=== PATIENT | female | born 1960 | race Caucasian/White ===

== ENCOUNTER 2022-08-17 10:30 | Emergency (ER) | payer BC ==
--- OUTSIDE RECORDS SUMMARY | 2022-08-17 10:35 | XMS REPORT | Continuity of Care Document ---
:1960 Author Organization [facility] t Address [address] [place] [address] Care Team Providers Name Role Phone Jaya ECHEVERRIA, Darnell Dale Primary Care Physician [phone] Helio Giles MD Attending Clinician Delonte Soriano MD Attending Clinician MD DAMON PUENTES Attending Clinician DAMON Oropeza Attending Clinician Unavailable Melanie Vo Attending Clinician MD DAMON PUENTES Admitting Clinician DAMON Oropeza Admitting Clinician Unavailable Melanie Vo Admitting Clinician Payers Payer Name Policy Type Policy Number Effective Date Expiration Date S ource Problems Condition Condition Condition Status Onset Resolution Last Treating Co mments Source Name Details Category Date Date Treatment Clinician Date Chest pain Chest pain Disease Active M ethodi 04-02 st 00:00: Hospita 00 l Dyspepsia Dyspepsia Disease Active Met hodi 06-22 st 00:00: Hospita 00 l Diaphragma Diaphragma Disease Active M ethodi tic hernia tic hernia 06-22 st without without 00:00: Hospita obstructio obstructio 00 l n and n and without without gangrene gangrene Heartburn Heartburn Disease Active Met h[facility] 06-22 st 00:00: Hospita 00 l Diverticul Diverticul Disease Active M ethodi osis large osis large 9-10 st intestine intestine 00:00: Hosp soledad w/o w/o 00 l perforatio perforatio n or n or abscess abscess w/o w/o bleeding bleeding Internal Internal Disease Active [facility] hemorrhoid hemorrhoid 9-10 st s s 00:00: Hospita 00 l Subdural Subdural Disease Active [facility] hematoma hematoma 8-15 st 00:00: Hospita 00 l Chronic Chronic Disease Active Methodi systolic systolic 8-15 st congestive congestive 00:00: Ho spita heart heart 00 l failure failure Chronic Chronic Disease Recurre Method i bronchitis bronchitis nce 8-15 st 00:00: Hospita 00 l Essential Essential Disease Active Met hodi hypertensi hypertensi 8-15 st on on 00:00: Hospita 00 l HLD HLD Disease Recurre Methodi (hyperlipi (hyperlipi nce 8-15 st demia) demia) 00:00: Hospita 00 l SDH SDH Diagnosis Active 2019-06-03 Mem oria Active 05-18 22:14:00 l 05/18/2019 00:08: Michael taveras [address] Angio-mary beth Angio-mary beth Disease Active M ethodi a a 7[address] st 00:00: Hospita 00 l Colon Colon Disease Active Overview: Method i cancer cancer 03-[address] screening screening 00:00: g of this H ospita 00 note l might be different from the original. Added automatic ally from request for surgery [id number] Gastroesop Gastroesop Disease Active Overview : Methodi hageal hageal 03-[address] reflux reflux 00:00: g of this Hospita disease disease 00 note l might be different from the original. Added automatic ally from request for surgery [id number] Acute on Acute on Disease Active Metho di chronic chronic 4-06 st congestive congestive 00:00: Ho spita heart heart 00 l failure failure TRAUM TRAUM Diagnosis Active 2019-06-03 Mem oria SUBDR HEM SUBDR HEM 22:14:00 l W LOC OF W LOC OF Michael taveras UNSP UNSP DURATION, DURATION, Active [facility] ILLNESS, ILLNESS, Diagnosis Active 2019-05-18 Memoria UNSPECIFIE UNSPECIFIE 04:18:00 l D D Active Lucien [facility] Illness, Illness, Problem 2019-05-24 Memoria unspecifie unspecifie 21:58:01 l d d Lucien 05/24/2019 [facility] Allergies, Adverse Reactions, Alerts Allergy Allergy Status Severity Reaction(s) Onset Inactive Treating Comm ents Source Name Type Date Date Clinician Lisinopr Propensi Active Swelling Meth mary il ty to 814 st adverse 00:00: Hospita reaction 00 l s to drug Sulfa Propensi Active Anaphylaxis Met hodi (Sulfona ty to 01-16 st mide adverse 00:00: Hospita Antibiot reaction 00 l ics) s to drug Tramadol Propensi Active Hives Method i ty to 01-16 st adverse 00:00: Hospita reaction 00 l s to drug sulfa sulfa Active Allergy to Memori a drugs drugs sulfonamides l (disorder) Michael n shellfis shellfis Active Memori a h<sup>1< h<sup>1< l /sup> /sup> Lucien lisinopr lisinopr Active Memori a il il l Lucien Other Other Active Memoria Food Food l Allergy< Allergy< Michael n sup>2</s sup>2</s up> up> traMADol traMADol Active Memori a l Lucien Family History Family Member Diagnosis Comments Start Date Stop Date Source Natural father [facility] Natural mother Hypertension [facility] Natural mother Thyroid disease [facility] Social History Social Habit Start Date Stop Date Quantity Comments Source History of tobacco Smokes tobacco [facility] use daily Hospital Alcohol intake 2022-01-21 2022-01-21 Current drinker [facility] 00:00:00 00:00:00 of alcohol Hospital (finding) Cigarettes smoked 2019-06-22 2019-06-[address] current (pack per 00:00:00 00:00:00 Hospita l day) - Reported Cigarette 2019-06-22 2019-06-22 [facility] pack-years 00:00:00 00:00:00 Hospital Tobacco use and 2019-06-22 2019-06-22 Smokeless tobacco [facility] exposure 00:00:00 00:00:00 non-user Hospital Social History 2019-05-18 2019-05-18 [facility] Gretel marcano 23:25:12 23:25:12 Alcohol Comment 2019-05-18 2019-05-18 daily [facility] 00:00:00 00:00:00 Hospital Sex Assigned At [birth year] F [facility] 00:00:00 00:00:00 Hospital Smoking Status Start Date Stop Date Source Smokes tobacco daily 2019-06-22 00:00:00 [facility] Medications Ordered Filled Start Stop Current Ordering Indication Dosage Frequency Signature Comments Components Source Medication Medication Date Date Medication? Clinician (SIG) Name Name omeprazole 2021-10 Yes TAKE ONE Met hodi (PriLOSEC) 0-[address] 40 MG 00:00: MOUTH Hospita capsule 00 DAILY l UNABLE TO Yes b complex Met hodi FIND 2-25 st 13:20: Hospita 28 l sertraline Yes 100mg QD Take 100 Me thodi (ZOLOFT) 2-[address] 100 MG 13:20: mouth Hospita tablet 01 daily. l hydrALAZINE Yes 50mg Q.5D Take 50 mg Methodi (APRESOLINE 2-[address] ) 50 MG 13:20: (two) Hospita tablet 01 times a l day. [place]Ocod[place] 21205 1.5{tbl QD Take 1.5 Methodi -acetaminop 2-25 } tablets by st hen (NORCO) 13:20: mouth Hospi ta 10-325 mg 01 daily l per tablet .acute pain. Takes one in the morning and half at night butalbital- 2021-0 Yes 1{tbl} Q.5D Take 1 Me thodi acetaminoph 2-[address] en-caff 13:20: mouth 2 Hospita (FIORICET, 01 (two) l ESGIC) times a 50-325-40 day. mg per tablet acetaZOLAMI 0 Yes 500mg QD Take 500 M ethodi DE (DIAMOX) 2-[address] 500 mg 13:20: mouth Hospita capsule 01 daily. l topiramate 0 Yes 100mg Q.5D Take 100 Me thodi (TOPAMAX) 2-[address] 100 MG 13:20: mouth 2 Hospita tablet 01 (two) l times a day. cholecalcif Yes 2000U QD Take 2,000 Methodi susy, 2-[address] vitamin D3, 13:20: mouth Hospi ta (Vitamin 01 daily. l D3) 50 mcg (2,000 unit) capsule capsule ascorbic Yes 1000mg QD Take 1,000 M ethodi acid, 2-[address] vitamin C, 13:20: mouth Hospit a (vitamin C) 01 daily. l 1000 MG tablet carvediloL Yes 25mg Q.5D Take 25 mg M ethodi (COREG) 25 2-[address] MG tablet 13:20: (two) Hospita 01 times a l day with meals. atorvastati Yes 20mg QD Take 20 mg Methodi n (LIPITOR) 2-[address] 20 mg 13:20: daily. Hospita tablet Default OP l ins erenumab-ao Yes 140mg Q28D Inject 140 Methodi oe (Aimovig 2-[address] Autoinjecto 13:20: the skin Ho spita r) 140 01 every 28 l mg/mL days. syringe diazePAM Yes 5mg Q.5D Take 5 mg Meth mary (VALIUM) 5 2-[address] MG tablet 13:20: (two) Hospita 01 times a l day. omeprazole 2020-10- No TAKE ONE Me thodi (PriLOSEC) 0-26 10-[address] 40 MG 00:00: 00:00 MOUTH Hospita capsule 00 :00 DAILY l valsartan 2019-0 Yes Methodi (DIOVAN) 9-10 st 160 MG 00:00: Hospita tablet 00 l potassium 2020-0 Yes 10meq QD Take 10 Meth mary chloride 9-[address] (KLOR-CON) 00:00: mouth Hospit a 10 MEQ CR 00 daily. l tablet Acetaminoph Yes 1 tab, PO, Memoria en 300 MG / 8-10 Q6H, PRN l Codeine 19:19: Pain, X 5 Brenda nn Phosphate 00 day, # 20 30 MG Oral tab, 0 Tablet Refill(s) [Tylenol with Codeine #3] Levetiracet Yes 500 mg = 1 Memoria am 500 MG 8-10 tab, PO, l Oral Tablet 19:18: Q12H, # 8 H ermann 27 tab, 0 Refill(s), Pharmacy: [place] [id number] Potassium 2018- No Notes: Memori a Chloride 05-22 (Same as: l 13:28: K-Dur 20) [place] 00 "Do Not Crush" Give with food and full glass of water For patients unable to swallow tablet, dissolve in one half glass of water. Allow about 2 minutes for the tablets to disintegra te. Stir before giving to prepare slurry and administer . Please exclude Patient s with feeding tube less than 14 [place] (Dobhoff, J-tube etc) and pediatric and patients. Aspirin 81 No 81 mg = 1 Me moria MG Chewable 05-21 tab, PO, l Tablet 17:56: Daily, # Lucien 00 60 tab, 0 Refill(s), other multivitami No Notes: Shane jannie n with 05-21 (Same l minerals 14:00: as:Thera-M Her desouza 00 , Theragran- M) WASTE: F/P - Black; E - Municipal Trash Bin Give with food. Morphine No Notes: Memoria 05-20 (Same l 20:08: as:MORPhin Lucien 00 e Sulfate) Acetaminoph Yes 1 tab, PO, Memoria en 300 MG / 05-20 Q6H, PRN l Codeine 17:56: Pain, # 20 Herm souleymane Phosphate 00 tab, 0 30 MG Oral Refill(s) Tablet [Tylenol with Codeine #3] Levetiracet No 500 mg = 1 Memoria am 500 MG - tab, PO, l Oral Tablet 17:56: Q12H, # 8 H ermann 00 tab, 0 Refill(s), other Hydralazine No Notes: Shane jannie 05-20 (Same as: l 17:31: Apresoline Lucien 00 ) May interfere w/enteral feedings Take With Food. Oxycodone No Notes: Memori a Hydrochlori 05-20 (Same as: l de 5 MG 13:21: Roxicodone Herm souleymane Oral Tablet 00 ) heparin No Notes: Memoria sodium, 05-19 porcine l porcine 21:00: heparin [place] 2500 UNT/ML Injectable Solution Morphine No Notes: Memoria - (Same l 14:05: as:MORPhin e Sulfate) Furosemide No Notes: Memor ia 40 MG Oral 05-19 (Same as: l Tablet 14:00: Lasix) May cause GI upset. Give with food or milk. Omeprazole No 20 mg, Memor ia 05-19 Route: PO, l 14:00: Drug form: Lucien 00 DRC, Daily, Dosing Weight 86, kg, Start date: 05/19/19 9:00:00 CDT, Duration: 30 day, Stop date: 06/17/19 9:00:00 CDT Sertraline No Notes: Memor ia 05-19 (Same as: l 14:00: Zoloft) sennosides, No Notes: Shane jannie SKILLED NURSING 8.6 MG 05-19 (Same as: l Oral Tablet 14:00: Senokot) He rm Docusate No Notes: Memoria 05-19 (Same as: l 14:00: Colace) [place] 00 (Do Not Crush) Simvastatin No Notes: Shane jannie 05-19 (Same as: l 02:00: Zocor) carvedilol No Notes: Memor ia 05-18 Give with l 22:00: food. [place] 00 (Same As: Coreg) carvedilol No 12.5 mg = Me moria 12.5 mg 8 1 tab, PO, l oral tablet 21:59: Q12H Michael n 00 One-A-Day Yes 1 tab, PO, Me moria Women 50 8-06 Daily, # l Plus oral 21:59: 90 tab, 0 Her desouza tablet 00 Refill(s) Hydralazine Yes 25 mg = 1 M emoria Hydrochlori 8-06 tab, PO, l de 25 MG 21:59: Q12H [place] Oral Tablet 00 sertraline Yes 150 mg = Mem oria 100 mg oral 8 1.5 tab, l tablet 21:58: PO, Daily Michael n 00 Protonix No Notes: Memoria 8-06 Tablet l 21:30: should not Lucien 00 be chewed or crushed. (Same as: Protonix) Potassium No Notes: Memori a Chloride 05-18 Infuse at l 18:51: a rate of Lucien 00 10 mEq/hr. (Same as: KCL) Calcium No Notes: Memoria Carbonate 05-18 (Same As: l 500 MG 18:51: Tums) [place] Chewable 00 Calcium Tablet Carbonate 500 mg = 200 mg elemental calcium Dose = mg calcium carbonate ( mg elemental calcium) Calcium No Notes: Memoria Gluconate 05-18 WASTE: F/P l 18:51: - Sink; E [place] - Municipal Trash Bin potassium No Notes: Memori a phosphate-s 05-18 (Same as: l odium 18:51: Phos-NaK) Lucien phosphate 00 Each 1.5 250 mg-280 gm pkt has mg-160 mg 250mg oral powder phosphorou for s. Mix reconstitut w/2.5oz ion water and stir. potassium No Notes: Memori a phosphate 05-18 (Same as: l 18:51: K Lucien 00 Phosphate. ) Do not infuse phosphorou s concurrent ly in the same line as TPN or IVF that contains calcium. For double lumen central lines, phosphorou s may be infused in a separate lumen from TPN. 1 mMol phoshate has 1.47 mEq potassium Infuse over 4 hours Magnesium No Notes: Memori a Oxide 05-18 (Same as: l 18:51: Mag-Ox [place] 00 400) Magnesium oxide 780pf=457i g elemental magnesium Dose=____m g magnesium oxide (___mg elemental magnesium) Magnesium No Notes: Memori a Sulfate 05-18 WASTE: F/P l 18:51: - Sink; E [place] - Municipal Trash Bin sodium No Notes: Memoria phosphate 05-18 Infuse l 18:51: over 4 Lucien 00 hour. Do not infuse phosphorou s concurrent ly in the same line as TPN or IVF that contains calcium. For double lumen central lines, phosphorou s may be infused in a separate lumen from TPN. Levetiracet No Notes: Shane jannie am 05-18 (Same l 14:00: as:Keppra) Lucien Zofran No Notes: Memoria 05-18 (Same as: l 11:15: Zofran) [place] 00 MEDICATION WASTE Product Size: 4 mg Product Wasted: ___ mg Acetaminoph No Notes: Do M emoria en 325 MG / 05-18 not exceed l Hydrocodone 11:14: 4gm/day of Lucien Bitartrate 00 acetaminop 10 MG Oral hen. (Same Tablet as: Vidalia 325/10) Acetaminoph No Notes: Do M emoria en 05-18 not exceed l 11:14: 4 gm/day. [place] (Same as: Tylenol) simvastatin Yes 20 mg = 1 M emoria 20 mg oral 05-18 tab, PO, l tablet 11:13: Bedtime, # Brenda nn 00 90 tab, 1 Refill(s) sertraline No 100 mg = 1 M emoria 100 mg oral 05-18 tab, PO, l tablet 11:13: Daily, # [place] 00 30 tab, 0 Refill(s) omeprazole Yes 20 mg = 1 Me moria 20 mg oral 05-18 cap, PO, l delayed 11:13: Daily, # Michael n release 00 30 cap, 0 capsule Refill(s) Hydralazine No 10 mg = 1 M emoria Hydrochlori -06 tab, PO, l de 10 MG 11:13: ABXQ8H, 0 Herm souleymane Oral Tablet 00 Refill(s) Furosemide Yes 40 mg = 1 Me moria 40 MG Oral 8-06 tab, PO, l Tablet 11:13: Daily, # [place] 00 30 tab, 0 Refill(s) carvedilol No 6.25 mg = Me moria 6.25 mg 05-18 1 tab, PO, l oral tablet 11:13: BID, # 180 Lucien 00 tab, 0 Refill(s) Aspirin 81 No 81 mg = 1 Me moria MG Chewable 05-18 tab, PO, l Tablet 11:13: Daily, Lucien 00 tab, 0 Refill(s) Sodium 2019-0 No 250 mL, Memoria Chloride 05-18 Rate: To l 0.9% 10:55: prime line [place] (titrate) 00 and flush 250 mL remaining blood products., Dosing Weight 86.2, kg, Route: IV, Total Volume: 250, Start Date: 05/18/19 5:55:00 CDT, Duration: 1 day, Stop date: 05/19/19 5:54:00 CDT, Replace Every: 24 hr, 0 Sodium 2019-0 No 1,000 mL, Memori a Chloride 05-18 Rate: 50 l 0.9% IV 09:46: ml/hr, [place] 1,000 mL 00 Infuse over: 20 hr, Route: IV, Total Volume: 1,000, Start date: 05/18/19 4:46:00 CDT, Duration: 30 day, Stop date: 06/17/19 4:45:00 CDT, 0 Immunizations Ordered Immunization Filled Immunization Date Status Commen ts Source Name Name Tdap 2022-01-21 Completed [facility] 00:00:00 Hospital Vital Signs Vital Name Observation Time Observation Value Comments Source Systolic blood 2022-01-21 19:39:00 138 mm[Hg] [facility] pressure Diastolic blood 2022-01-21 19:39:00 79 mm[Hg] [facility] pressure Heart rate 2022-01-21 19:39:00 54 /min [facility] Body temperature 2022-01-21 19:39:00 36.44 Johanny [facility] Respiratory rate 2022-01-21 19:39:00 17 /min [facility] Oxygen saturation in 2022-01-21 19:39:00 99 /min [facility] Arterial blood by Pulse oximetry Body height 2022-01-21 18:06:00 162.6 cm [facility] Body weight 2022-01-21 18:06:00 54.432 kg [facility] BMI 2022-01-21 18:06:00 20.60 kg/m2 [facility] Temperature Oral (F) 2019-05-22 16:35:00 98.7 F [facility] Lucien Respitory Rate 2019-05-22 16:35:00 Memori al Lucien Heart Rate 2019-05-22 16:35:00 [facility] Lucien Systolic (mm Hg) 2019-05-22 16:35:00 Shane rial [place] Diastolic (mm Hg) 2019-05-22 16:35:00 Mem orial Lucien Heart Rate 2019-05-22 13:00:00 [facility] [place] Systolic (mm Hg) 2019-05-22 13:00:00 Shane rial Lucien Diastolic (mm Hg) 2019-05-22 13:00:00 Mem orial [place] Respitory Rate 2019-05-22 13:00:00 Memori al Lucien Temperature Oral (F) 2019-05-22 13:00:00 98.5 F [facility] Lucien Respitory Rate 2019-05-22 09:00:00 Memori al Lucien Systolic (mm Hg) 2019-05-22 09:00:00 Shane rial [place] Diastolic (mm Hg) 2019-05-22 09:00:00 Mem orial Lucien Heart Rate 2019-05-22 09:00:00 [facility] [place] Temperature Oral (F) 2019-05-22 09:00:00 98.0 F [facility] [place] Weight 2019-05-18 15:56:00 [facility] [place] BMI Calculated 2019-05-18 15:56:00 Memori al Lucien Height 2019-05-18 15:56:00 162.56 cm [facility] [place] BMI Calculated 2019-05-18 12:38:00 Memori al Lucien Weight 2019-05-18 12:38:00 [facility] Lucien Height 2019-05-18 12:38:00 162.56 cm [facility] Lucien BMI Calculated 2019-05-18 12:36:00 Memori al Lucien Height 2019-05-18 12:36:00 162.56 cm [facility] Lucien Weight 2019-05-18 12:36:00 [facility] Lucien Procedures Procedure Date / Time Performing Clinician Source Performed XR KNEE 3 VW LEFT 2022-01-21 19:25:43 [facility] XR CHEST 1 VW PORTABLE 2022-01-21 19:25:[address] [facility] [address] CERVICAL SPINE WO 2022-01-21 19:13:32 [facility] CONTRAST CT HEAD WO CONTRAST 2022-01-21 19:13:17 [facility] QUALITATIVE, SERUM 2022-01-21 18:38:00 [facility] SCREEN HC COMPLETE BLD COUNT 2022-01-21 18:38:00 PeytonAbel taveras [facility] W/AUTO DIFF COMPREHENSIVE METABOLIC 2022-01-21 18:38:00 [facility] PANEL TROPONIN T 2022-01-21 18:38:00 [facility] TIME WITH INR 2022-01-21 18:38:00 [facility] PART[facility] THROMBOPLASTIN 2022-01-21 18:38:00 Hitchcock [facility] TIME (PTT) ALCOHOL LEVEL, BLOOD 2022-01-21 18:38:00 [facility] LACTIC ACID LEVEL, SEPSIS 2022-01-21 18:38:[address] [facility] - NOW AND REPEAT 2X EVERY 3 HOURS ESTIMATED GFR 2022-01-21 18:38:00 Abel [facility]ital ECG ED PRELIMINARY 2022-01-21 18:37:22 HitchcockDelonte [facility] INTERPRETATION ECG 12-LEAD 2022-01-21 18:10:18 Abel Todd spital Plan of Care Planned Activity Planned Date Details Comments Source Future Scheduled 2022-08-14 HEPATITIS B VACCINES Met [facility] Test 19:12:46 (1 of 3 - 3-dose series) [code = HEPATITIS B VACCINES (1 of 3 - 3-dose series)] Future Scheduled 2022-08-14 Pneumococcal Vaccine: [facility] Test 19:12:46 Pediatrics (0 to 5 Years) and At-Risk Patients (6 to 64 Years) (1 - PCV) [code = Pneumococcal Vaccine: Pediatrics (0 to 5 Years) and At-Risk Patients (6 to 64 Years) (1 - PCV)] Future Scheduled 2022-08-14 Hepatitis C screening [facility] Test 19:12:46 (procedure) [code = 737684676] Future Scheduled 2022-08-14 Screening for [facility] Test 19:12:46 malignant neoplasm of cervix (procedure) [code = 455650104] Future Scheduled 2022-08-14 BREAST CANCER [facility] Test 19:12:46 SCREENING [code = BREAST CANCER SCREENING] Future Scheduled 2022-08-[address] [facility] Test 19:12:46 [code = COLONOSCOPY SCREENING] Future Scheduled 2022-08-14 Screening for [facility] Test 19:12:46 malignant neoplasm of lung (procedure) [code = 695469776] Future Scheduled 2022-08-14 SHINGLES VACCINES (1 Met [facility] Test 19:12:46 of 2) [code = SHINGLES VACCINES (1 of 2)] Future Scheduled 2022-08-14 COVID-19 VACCINE (4 - [facility] Test 19:12:46 Booster for Moderna series) [code = COVID-19 VACCINE (4 - Booster for Moderna series)] Future Scheduled 2022-08-14 INFLUENZA VACCINE Method [facility] Test 19:12:46 [code = INFLUENZA VACCINE] Encounters Start End Encounter Admission Attending Care Care Encounter Source Date/Time Date/Time Type Type Clinicians Facility Department ID 2019-05-18 Inpatient [facility] [id number] [facility] W 04:17:00 2022-08-06 2022-08-06 Refill Helio Giles 1.2.840.1 [id number] Methodi 00:00:00 00:00:[address] 3.430.2.7 Hospit a .3.104685 l .8 2022-01-21 2022-01-21 Emergency Soriano, 1.2.840.1 [id number] Methodi 13:08:00 15:26:[address] 3.430.2.7 Hospit a .3.324964 l .8 2022-01-21 2022-01-21 Travel 1.2.840.1 [id number] [id number] Methodi 00:00:00 00:00:[address] 3.430.2.7 0.2.7.3.698 Ho spita .3.487131 084.8 l .8 2022-01-21 2022-01-21 Emergency FANNY, [facility] [id number] [place] 00:00:00 00:00:00 DELONTE [address] 2021-12-07 2021-12-07 Office Tisha Helio 1.2.840.1 [id number] Methodi 13:00:00 13:48:55 Visit [place] [address].1.[address] 3.430.2.7 Hospit a .3.521855 l .8 2021-12-07 2021-12-07 Travel 1.2.840.1 1.2.512.574 [id number] Methodi 00:00:00 00:00:[address] 3.430.2.7 0.2.7.3.698 Ho spita .3.088369 084.8 l .8 2021-12-07 2021-12-07 Outpatient PENDING SALE TO [facility] [id number] [place] 00:00:00 00:00:[address] 2021-07-17 2021-07-17 Outpatient PRIV PRIV [id number] 0-2 [facility] 00:00:00 00:00:00 [id number] Medica l 2021-05-17 2021-05-17 Outpatient [facility] [id number] [place] 00:00:00 00:00:[address] 2021-04-02 2021-04-02 Outpatient OBSHAWN [facility] [id number] [place] 00:00:00 00:00:00 DAMON [address] 2020-07-07 2020-07-07 Outpatient [facility] [id number] [place] 00:00:00 00:00:[address] 2019-05-18 2019-05-22 Inpatient [facility] [id number] Memoria 09:17:00 21:00:00 eric Mcgraw 18 l [facility] 2019-05-18 2019-05-22 Outpatient Vo, [facility] [id number] 04:17:00 16:00:00 Melanie Blanchard 18 Vero Results Test Description Test Time Test Comments Results Result Comments Source ECG 12 lead 2022-02-07 19:09:06 Test Item Value Reference Range Interpretation Comme nts Ventricular rate (test code = 253) Atrial rate (test code = 255) [place] interval (test code = 266) QRSD interval (test code = 260) QT interval (test code = 264) QTC interval (test code = 265) P axis 1 (test code = 267) QRS axis 1 (test code = 268) T wave axis (test code = 270) EKG impression (test code = 273) Sinus rhythm with 1st degree AV bl ock-Left bundle branch block-In automated comparison with ECG of 02-APR-2021 16:58,-Questionable change in QRS axis-T wave inversion no longer evident in Inferior leads- [facility] ED Preliminary Interpretation - Not an [id number] 18:37:22 Test Item Value Reference Range Interpretation Comments BOWEN (test code = BOWEN) Delonte Soriano MD 01/21/2022 2:31 [facility] Preliminary Interpretation - Not an OrderPerformed by: Delonet Soriano MDAuthorized by: Delonte Soriano MD ECG reviewed by ED Physician in the absence of a keyboard teacher: yes Interpretation: Interpretation: abnormal Rate: ECG rate: 62 ECG rate assessment: normal Rhythm: Rhythm: sinus rhythm and A-V block QRS: QRS axis: Normal QRS intervals: NormalConduction: Conduction: abnormal Abnormal conduction: complete LBBB and 1st degree Lab Interpretation Abnormal (test code = 17375-5) [facility] [Presence] in Respiratory specimen by ALBERTO with probe [id number] 12:11:20 Test Item Value Reference Range Interpretation Comments SARS-CoV-2 (COVID-19) RNA Not detected Not-Detected [Presence] in Respiratory specimen by ALBERTO with probe detection (test code = 08601-8) Whether patient is employed in a healthcare setting (test code = 33969-6) Whether the patient has symptoms related to condition of interest (test code = 81303-8) Patient was hospitalized because of this condition (test code = 92366-6) Whether the patient was admitted to intensive care unit (ICU) for condition of interest (test code = 68526-9) Whether patient resides in a congregate care setting (test code = 83000-8) [facility]:16[facility]00 Test Item Value Reference Range Interpretation Comments Sodium Lvl (test code = Sodium Lvl) 137 135-145 [facility]EmkrfstBWHTNORIPRTT6213-76-07 09:16:00 Test Item Value Reference Range Interpretation Comments Potassium Lvl (test code = Potassium 3.4 3.5-5.1 Lvl) [facility]borEtsqynzUEFBTNSDKIVM5527-82-99 09:16:00 Test Item Value Reference Range Interpretation Comments Chloride Lvl (test code = Chloride Lvl) 100 95-109 [facility]borMauqyrpLABLECUHLQWN7074-55-37 09:16:00 Test Item Value Reference Range Interpretation Comments Creatinine Lvl (test code = Creatinine 1.20 0.50-1.40 Lvl) [facility]borRqrnlpyKDMLOCZZWTDK6645-17-93 09:16:00 Test Item Value Reference Range Interpretation Comments BUN (test code = BUN) 13 7-22 [facility]borIfuxrfgDNILSMECLYZM2581-03-67 09:16:00 Test Item Value Reference Range Interpretation Comments eGFR (test code = eGFR) 50 [facility]borIritvbjKNEAFYYCFTOG3370-77-33 09:16:00 Test Item Value Reference Range Interpretation Comments Calcium Lvl (test code = Calcium Lvl) 9.0 8.5-10.5 [facility]borPzvsurvGSBVKNWTLWCA9574-47-15 09:16:00 Test Item Value Reference Range Interpretation Comments CO2 (test code = CO2) 27 24-32 [facility]borVowjwyxLOQJFXMGOOTW1458-17-18 09:16:00 Test Item Value Reference Range Interpretation Comments Glucose Lvl (test code = Glucose Lvl) 93 70-99 [facility]borWlrvhhrTIRBKORFVGNP7712-33-30 09:16:00 Test Item Value Reference Range Interpretation Comments AGAP (test code = AGAP) 13.4 10.0-20.0 [facility]NeyjmaoFNUFSNMZEZ5127-90-21 09:16:00 Test Item Value Reference Range Interpretation Comments MCH (test code = MCH) 33.7 pg 27.0-31.0 [facility] HospitalMmcogyuXMIFKORLAS5776-55-14 09:16:00 Test Item Value Reference Range Interpretation Comments MCHC (test code = MCHC) 34.0 32.0-36.0 [facility] HospitalUsuyvclYQEGOIWSFR6288-08-24 09:16:00 Test Item Value Reference Range Interpretation Comments Platelet (test code = Platelet) 206 133-450 [facility] HospitalJqpjketOGRNGKJWMA0850-04-90 09:16:00 Test Item Value Reference Range Interpretation Comments MPV (test code = MPV) 9.9 7.4-10.4 [facility] HospitalGltxlpzWMAAVXMWTP3639-75-58 09:16:00 Test Item Value Reference Range Interpretation Comments RDW (test code = RDW) 18.1 11.5-14.5 [facility] HospitalQtzahviDXLPXWNMLY6013-93-71 09:16:00 Test Item Value Reference Range Interpretation Comments WBC (test code = WBC) 5.9 3.7-10.4 [facility] HospitalMwhaylaDRABAJFDQC0567-16-04 09:16:00 Test Item Value Reference Range Interpretation Comments RBC (test code = RBC) 2.94 4.20-5.40 [facility] HospitalXosbncmGJLGJGVCUG9264-76-53 09:16:00 Test Item Value Reference Range Interpretation Comments Hgb (test code = Hgb) 9.9 12.0-16.0 [facility] HospitalNwcjsuqCOIPWHIGIV1686-48-47 09:16:00 Test Item Value Reference Range Interpretation Comments Hct (test code = Hct) 29.1 36.0-48.0 [facility] HospitalVeapuelPHOPJIOVZY5405-43-91 09:16:00 Test Item Value Reference Range Interpretation Comments MCV (test code = MCV) 99.1 80.0-98.0 [facility] HospitalDhtyvqnHVJBATFVTC7248-79-42 23:02:00 Test Item Value Reference Range Interpretation Comments Hgb (test code = Hgb) 9.7 12.0-16.0 [facility] HospitalEcxrmooAXUCUHBXDQ0504-82-25 23:02:00 Test Item Value Reference Range Interpretation Comments Hct (test code = Hct) 28.4 36.0-48.0 [facility] GZKGK6148-56-99 09:46:00 Test Item Value Reference Range Interpretation Comments CO2 (test code = CO2) 24 24-32 [facility] [id number] 09:46:00 Test Item Value Reference Range Interpretation Comments Calcium Lvl (test code = Calcium Lvl) 8.8 8.5-10.5 [facility]2019-08-08 09:46:00 Test Item Value Reference Range Interpretation Comments AGAP (test code = AGAP) 13.2 10.0-20.0 [facility]2019-08-08 09:46:00 Test Item Value Reference Range Interpretation Comments Phosphorus (test code = Phosphorus) 3.1 2.5-4.5 [facility]2019-08-08 09:46:00 Test Item Value Reference Range Interpretation Comments Magnesium Lvl (test code = Magnesium 2.3 1.8-2.4 Lvl) [facility] HospitalRphadckPTWUMKSVTU4572-55-99 09:46:00 Test Item Value Reference Range Interpretation Comments Monocytes # (test code 0.4 See_Comment [Aut omated message] The = Monocytes #) system which generated this result tra nsmitted reference range : <=0.8. The reference r pooja was not used to int erpret this result as normal/abnormal . [facility] HospitalEayqnhrXYLNSXFHXE8147-92-20 09:46:00 Test Item Value Reference Range Interpretation Comments Eosinophils (test code = 1.4 See_Comment [A utomated message] The Eosinophils) system which ge nerated this result tra nsmitted reference range : <=4.0. The reference r pooja was not used to int erpret this result as normal/abnormal . [facility] HospitalXqonhzbKEUVJRLBEI8222-11-67 09:46:00 Test Item Value Reference Range Interpretation Comments Basophils # (test code 0.1 See_Comment [Aut omated message] The = Basophils #) system which generated this result tra nsmitted reference range : <=0.2. The reference r pooja was not used to int erpret this result as normal/abnormal . [facility] HospitalTzmeiyxSJRYFXPWOZ1312-87-83 09:46:00 Test Item Value Reference Range Interpretation Comments Eosinophils # (test code 0.1 See_Comment [A utomated message] The = Eosinophils #) system whic h generated this result tra nsmitted reference range : <=0.5. The reference r pooja was not used to int erpret this result as normal/abnormal . [facility] HospitalPtuomxlKDPGQSONLL9315-30-28 09:46:00 Test Item Value Reference Range Interpretation Comments Basophils (test code = 0.9 See_Comment [Aut omated message] The Basophils) system which ge nerated this result tra nsmitted reference range : <=1.0. The reference r pooja was not used to int erpret this result as normal/abnormal . [facility] HospitalWtpswkrFCWYPMTYZQ9442-56-78 09:46:00 Test Item Value Reference Range Interpretation Comments Neutrophils # (test code = Neutrophils 4.7 1.5-8.1 #) [facility] HospitalUsftldbIQJPNVBMSM5973-03-79 09:46:00 Test Item Value Reference Range Interpretation Comments Lymphocytes # (test code = Lymphocytes 1.3 1.0-5.5 #) [facility] HospitalCyqmrrdWVKQJVCTCU5844-79-21 09:46:00 Test Item Value Reference Range Interpretation Comments Segs (test code = Segs) 71.2 45.0-75.0 [facility] HospitalDnikxpjOVNPNJHELZ4065-97-45 09:46:00 Test Item Value Reference Range Interpretation Comments Monocytes (test code = Monocytes) 6.5 2.0-12.0 [facility] HospitalAcbnrceIAHCATUFUW7107-92-22 09:46:00 Test Item Value Reference Range Interpretation Comments Lymphocytes (test code = Lymphocytes) 20.0 20.0-40.0 [facility] HospitalJztqxszADPHUPJOOA4747-63-17 09:46:00 Test Item Value Reference Range Interpretation Comments MCH (test code = MCH) 33.6 pg 27.0-31.0 [facility] HospitalEmhsusbERXIFIBUXW9170-21-91 09:46:00 Test Item Value Reference Range Interpretation Comments MCV (test code = MCV) 100.5 80.0-98.0 [facility] HospitalAvdkrkeIKRGKTQRVL1110-43-97 09:46:00 Test Item Value Reference Range Interpretation Comments Hgb (test code = Hgb) 9.0 12.0-16.0 [facility] HospitalFdiygxgNRDLZGAZQR2001-09-63 09:46:00 Test Item Value Reference Range Interpretation Comments Hct (test code = Hct) 26.9 36.0-48.0 [facility] HospitalNzbtldcDMUVLDINJL2666-36-01 09:46:00 Test Item Value Reference Range Interpretation Comments MCHC (test code = MCHC) 33.5 32.0-36.0 [facility] HospitalDwdboanNTWUSIGVCT0327-82-55 09:46:00 Test Item Value Reference Range Interpretation Comments RBC (test code = RBC) 2.68 4.20-5.40 [facility] HospitalSltittkVGMJWWRYNI6544-29-16 09:46:00 Test Item Value Reference Range Interpretation Comments WBC (test code = WBC) 6.6 3.7-10.4 [facility] HospitalVofguyvHHJTVZKIFQ1294-02-95 09:46:00 Test Item Value Reference Range Interpretation Comments Platelet (test code = Platelet) 182 133-450 [facility] HospitalPxbmcsfALUQOMDRZG5281-84-70 09:46:00 Test Item Value Reference Range Interpretation Comments MPV (test code = MPV) 10.3 7.4-10.4 [facility] HospitalXwmpxsmTICFDGHZQN6463-94-89 09:46:00 Test Item Value Reference Range Interpretation Comments RDW (test code = RDW) 18.5 11.5-14.5 [facility]2019-08-08 09:46:00 Test Item Value Reference Range Interpretation Comments eGFR (test code = eGFR) 50 [facility]2019-08-08 09:46:00 Test Item Value Reference Range Interpretation Comments BUN (test code = BUN) 13 7-22 [facility]2019-08-08 09:46:00 Test Item Value Reference Range Interpretation Comments Creatinine Lvl (test code = Creatinine 1.20 0.50-1.40 Lvl) [facility] KBWBB5847-12-18 09:46:00 Test Item Value Reference Range Interpretation Comments Sodium Lvl (test code = Sodium Lvl) 143 135-145 [facility]2019-08-08 09:46:00 Test Item Value Reference Range Interpretation Comments Potassium Lvl (test code = Potassium 4.2 3.5-5.1 Lvl) [facility] HMHUN7775-18-53 09:46:00 Test Item Value Reference Range Interpretation Comments Glucose Lvl (test code = Glucose Lvl) 91 70-99 [facility] GJTLC6882-56-64 09:46:00 Test Item Value Reference Range Interpretation Comments Chloride Lvl (test code = Chloride Lvl) 110 95-109 [facility] GVVIWOD7440-41-29 09:36:00 Test Item Value Reference Range Interpretation Comments Troponin-I (test code no gt See_Comment [Auto mated message] The = Troponin-I) system which g enerated this result transmit ruslan reference range : <=0.40. The reference r pooja was not used to interpr et this result as simeon l/abnormal. [facility] [id number] 09:36:00 Test Item Value Reference Range Interpretation Comments Phosphorus (test code = Phosphorus) 3.0 2.5-4.5 [facility]2019-08-07 09:36:00 Test Item Value Reference Range Interpretation Comments Magnesium Lvl (test code = Magnesium 2.5 1.8-2.4 Lvl) [facility]ZqupmsoQPLUWXHTURIT1989-27-92 09:36:00 Test Item Value Reference Range Interpretation Comments AGAP (test code = AGAP) 11.8 10.0-20.0 [facility]borYpfnkowHMEZGOCFSVED9108-20-90 09:36:00 Test Item Value Reference Range Interpretation Comments eGFR (test code = eGFR) 50 [facility]borZfnrsuvJETGOXAIHEOF2739-27-25 09:36:00 Test Item Value Reference Range Interpretation Comments Creatinine Lvl (test code = Creatinine 1.20 0.50-1.40 Lvl) [facility]borQhomgmkSTZTBFEWSTTQ3913-55-22 09:36:00 Test Item Value Reference Range Interpretation Comments BUN (test code = BUN) 16 7-22 [facility]borQpajqhwPVZUCMYUVYCR8566-97-63 09:36:00 Test Item Value Reference Range Interpretation Comments Glucose Lvl (test code = Glucose Lvl) 101 70-99 [facility]borWmnpzarJIKXVALXAMGK7123-75-31 09:36:00 Test Item Value Reference Range Interpretation Comments Sodium Lvl (test code = Sodium Lvl) 142 135-145 [facility]borNmbzvzrPEJPMFEXFHGH4231-36-83 09:36:00 Test Item Value Reference Range Interpretation Comments Calcium Lvl (test code = Calcium Lvl) 8.2 8.5-10.5 [facility]borKfcxzkrWCZHIQTGYRDV4328-16-65 09:36:00 Test Item Value Reference Range Interpretation Comments CO2 (test code = CO2) 25 24-32 [facility]borTokkpcoBROCEKLVOVRZ2070-36-78 09:36:00 Test Item Value Reference Range Interpretation Comments Chloride Lvl (test code = Chloride Lvl) 109 95-109 [facility] ArborUrqaftlRMPQUIRAVCBB7483-12-35 09:36:00 Test Item Value Reference Range Interpretation Comments Potassium Lvl (test code = Potassium 3.8 3.5-5.1 Lvl) [facility]winVtmljswOSEZKWULLV0797-68-78 09:36:00 Test Item Value Reference Range Interpretation Comments Lymphocytes # (test code = Lymphocytes 1.1 1.0-5.5 #) [facility] HospitalSucnbwmJDLCCWQLCW8768-91-98 09:36:00 Test Item Value Reference Range Interpretation Comments Monocytes # (test code 0.5 See_Comment [Aut omated message] The = Monocytes #) system which generated this result tra nsmitted reference range : <=0.8. The reference r pooja was not used to int erpret this result as normal/abnormal . [facility] HospitalNegdcyqZPGEKKCIQO7092-99-34 09:36:00 Test Item Value Reference Range Interpretation Comments Neutrophils # (test code = Neutrophils 4.5 1.5-8.1 #) [facility] HospitalYwyahflAVYHNTISKV4190-66-67 09:36:00 Test Item Value Reference Range Interpretation Comments Segs (test code = Segs) 72.5 45.0-75.0 [facility] HospitalQqlvwpyUMTGOAWKQZ6105-74-07 09:36:00 Test Item Value Reference Range Interpretation Comments Lymphocytes (test code = Lymphocytes) 17.9 20.0-40.0 [facility] HospitalLpgnphkFZJGJBCKOF5367-12-94 09:36:00 Test Item Value Reference Range Interpretation Comments Basophils (test code = 0.4 See_Comment [Aut omated message] The Basophils) system which ge nerated this result tra nsmitted reference range : <=1.0. The reference r pooja was not used to int erpret this result as normal/abnormal . [facility] HospitalNejowulDFELVCISNT0912-37-37 09:36:00 Test Item Value Reference Range Interpretation Comments Monocytes (test code = Monocytes) 8.6 2.0-12.0 [facility] HospitalHgmzxcfWQXEGEAHPT9813-75-22 09:36:00 Test Item Value Reference Range Interpretation Comments Eosinophils (test code = 0.6 See_Comment [A utomated message] The Eosinophils) system which ge nerated this result tra nsmitted reference range : <=4.0. The reference r pooja was not used to int erpret this result as normal/abnormal . [facility] HospitalOpwnnleUEZRFBAGIO2070-07-73 09:36:00 Test Item Value Reference Range Interpretation Comments INR (test code = INR) 0.97 1 0.85-1.17 [facility] HospitalVzvfcjaDQSJBEMORG8436-14-30 09:36:00 Test Item Value Reference Range Interpretation Comments PTT (test code = PTT) 32.4 s 22.9-35.8 [facility] HospitalVedllytQZDQNNYZCU9790-39-55 09:36:00 Test Item Value Reference Range Interpretation Comments PT (test code = PT) 12.7 s 12.0-14.7 [facility] HospitalFfwlnjoLSEKHNKOKY2854-51-32 09:36:00 Test Item Value Reference Range Interpretation Comments MPV (test code = MPV) 9.6 7.4-10.4 [facility] HospitalNxdflcjCSIZTIJLYX9875-16-71 09:36:00 Test Item Value Reference Range Interpretation Comments Platelet (test code = Platelet) 170 133-450 [facility] HospitalOguadhwRQMBTJVLJJ9172-05-63 09:36:00 Test Item Value Reference Range Interpretation Comments MCH (test code = MCH) 33.7 pg 27.0-31.0 [facility] HospitalMnhcxbcGXSJOIYCEF3258-82-91 09:36:00 Test Item Value Reference Range Interpretation Comments MCV (test code = MCV) 99.1 80.0-98.0 [facility] HospitalTxsfaygBSUWVYKWYN6292-67-59 09:36:00 Test Item Value Reference Range Interpretation Comments RDW (test code = RDW) 19.1 11.5-14.5 [facility] HospitalRkxfdulBUTKGQIYZZ1727-18-93 09:36:00 Test Item Value Reference Range Interpretation Comments MCHC (test code = MCHC) 34.0 32.0-36.0 [facility] HospitalBnmmancETQDJTBBLO3642-51-44 09:36:00 Test Item Value Reference Range Interpretation Comments RBC (test code = RBC) 2.62 4.20-5.40 [facility] HospitalClldmgoPHQWKEBBIX0845-23-34 09:36:00 Test Item Value Reference Range Interpretation Comments WBC (test code = WBC) 6.2 3.7-10.4 [facility]roeAturdinKALCOW9363-10-16 09:36:00 Test Item Value Reference Range Interpretation Comments CHD Risk (test code = CHD Risk) 2.88 1 3.90-5.80 [facility]roeNviqhuoWBDZHE6948-26-11 09:36:00 Test Item Value Reference Range Interpretation Comments HDL (test code = HDL) 68 [facility]roeRqhzvbkYGSAPU8451-53-76 09:36:00 Test Item Value Reference Range Interpretation Comments Trig (test code = Trig) 166 [facility] ConroeGugtrgzYHZIZG7348-72-01 09:36:00 Test Item Value Reference Range Interpretation Comments VLDL (test code = VLDL) 33 1 [facility] QrqtbafZHGGNM1021-90-51 09:36:00 Test Item Value Reference Range Interpretation Comments LDL (Calculated) (test code = LDL 95 (Calculated)) [facility] LobftmtVVZYXW3332-39-90 09:36:00 Test Item Value Reference Range Interpretation Comments Chol (test code = Chol) 196 [facility]enannPARATHYROID DQTHZBC8561-80-23 09:36:00 Test Item Value Reference Range Interpretation Comments Ca Ion WB (test code = Ca Ion WB) 1.13 1.05-1.25 [facility]annPARATHYROID SFDKFOA0209-60-36 09:36:00 Test Item Value Reference Range Interpretation Comments Ca Norm WB (test code = Ca Norm WB) 1.11 1.05-1.25 [facility]enannCARDIAC PCUJTLP4442-02-84 16:32:00 Test Item Value Reference Range Interpretation Comments CK MB (test code = CK MB) 2.1 0.5-3.6 [facility]enannCARIguanaBee in ChinaAC TNEZBDD3512-80-30 16:32:00 Test Item Value Reference Range Interpretation Comments Total CK (test code = Total CK) 98 12-191 [facility] TaylorCARIguanaBee in ChinaAC VOMIIDR6733-44-65 16:32:00 Test Item Value Reference Range Interpretation Comments Troponin-I (test code no gt See_Comment [Auto mated message] The = Troponin-I) system which g enerated this result transmit ruslan reference range : <=0.40. The reference r pooja was not used to interpr et this result as simeon l/abnormal. [facility] HarlingenSandboxxCARDIAC [id number] 16:32:00 Test Item Value Reference Range Interpretation Comments CK MB Index (test 2.1 1 See_Comment [Automate d message] The code = CK MB Index) system w [facility] generated this result transmit ruslan reference range : <=2.5. The reference range was not used to interpr et this result as simeon l/abnormal. [facility] LumidigmCHEM OGXUT4906-43-79 16:32:00 Test Item Value Reference Range Interpretation Comments Lactic Acid Lvl (test code = Lactic 0.7 0.5-2.2 Acid Lvl) [facility]enUniversity [facility]OOD [facility] EDQAVFO3853-22-58 11:44:00 Test Item Value Reference Range Interpretation Comments ABO/Rh (test code = ABO/Rh) [facility] [id number] 11:44:00 Test Item Value Reference Range Interpretation Comments Antibody Scrn (test Negative (05/18/19 6:44 code = Antibody Scrn) AM) [facility] GladwinSreznpiSAPYTPDYSM3949-27-96 10:24:00 Test Item Value Reference Range Interpretation Comments PTT (test code = PTT) 29.0 s 22.9-35.8 [facility] GladwinIkynjxwZMNXRPIKII7462-40-43 10:24:00 Test Item Value Reference Range Interpretation Comments INR (test code = INR) 0.91 1 0.85-1.17 [facility] GladwinKzapzeeXERMNJAAVC4191-42-33 10:24:00 Test Item Value Reference Range Interpretation Comments PT (test code = PT) 12.1 s 12.0-14.7 [facility] TaylorBACTERIAL - YIZLCETE5662-12-71 10:21:00 Test Item Value Reference Range Interpretation Comments MRSA by PCR (test Negative (05/18/19 5:21 code = MRSA by PCR) AM) [facility] TaylorCARDIAC [id number] 10:21:00 Test Item Value Reference Range Interpretation Comments Troponin-I (test code no gt See_Comment [Auto mated message] The = Troponin-I) system which g enerated this result transmit ruslan reference range : <=0.40. The reference r pooja was not used to interpr et this result as simeon l/abnormal. [facility] HarlingenNumbrs AG [id number] 10:21:00 Test Item Value Reference Range Interpretation Comments Lipase Lvl (test code = Lipase Lvl) 88 73-393 [facility] HarlingenNumbrs AG YNPWV4485-37-37 10:21:00 Test Item Value Reference Range Interpretation Comments Phosphorus (test code = Phosphorus) 3.3 2.5-4.5 [facility] [employer] [id number] 10:21:00 Test Item Value Reference Range Interpretation Comments Magnesium Lvl (test code = Magnesium 2.4 1.8-2.4 Lvl) [facility] HarlingenNumbrs AG IUNKS4897-02-39 10:21:00 Test Item Value Reference Range Interpretation Comments Lactic Acid Lvl (test code = Lactic 2.1 0.5-2.2 Acid Lvl) [facility] TaylorTxdxdxqLYLJYKGOSZ2613-82-25 10:21:00 Test Item Value Reference Range Interpretation Comments Neutrophils # (test code = Neutrophils 12.1 1.5-8.1 #) [facility] HospitalQbnalgnRJKJOSCGTI4942-15-69 10:21:00 Test Item Value Reference Range Interpretation Comments Lymphocytes # (test code = Lymphocytes 0.6 1.0-5.5 #) [facility] HospitalCwzacceDBWVQEUUUC0612-35-49 10:21:00 Test Item Value Reference Range Interpretation Comments Basophils # (test code 0.1 See_Comment [Aut omated message] The = Basophils #) system which generated this result tra nsmitted reference range : <=0.2. The reference r pooja was not used to int erpret this result as normal/abnormal . [facility] HospitalDsaygyiCSSKHJVKYI6482-48-31 10:21:00 Test Item Value Reference Range Interpretation Comments Lymphocytes (test code = Lymphocytes) 4.4 20.0-40.0 [facility] HospitalOybwzgyNTHWRRSGEE2620-89-18 10:21:00 Test Item Value Reference Range Interpretation Comments Segs (test code = Segs) 92.4 45.0-75.0 [facility] HospitalSkebfwfCLABHOAPQW8317-36-73 10:21:00 Test Item Value Reference Range Interpretation Comments Eosinophils (test code = 0.1 See_Comment [A utomated message] The Eosinophils) system which ge nerated this result tra nsmitted reference range : <=4.0. The reference r pooja was not used to int erpret this result as normal/abnormal . [facility] HospitalJldqlkdWVNNFGTBWY6080-38-33 10:21:00 Test Item Value Reference Range Interpretation Comments Basophils (test code = 0.4 See_Comment [Aut omated message] The Basophils) system which ge nerated this result tra nsmitted reference range : <=1.0. The reference r pooja was not used to int erpret this result as normal/abnormal . [facility] HospitalDflumsaOQSLYJFMYE4961-05-74 10:21:00 Test Item Value Reference Range Interpretation Comments Monocytes # (test code 0.3 See_Comment [Aut omated message] The = Monocytes #) system which generated this result tra nsmitted reference range : <=0.8. The reference r pooja was not used to int erpret this result as normal/abnormal . [facility] HospitalVymnstyAWRGOPDCEJ9631-22-19 10:21:00 Test Item Value Reference Range Interpretation Comments Monocytes (test code = Monocytes) 2.7 2.0-12.0 [facility] HospitalZjwfgazYLNYDKCJLT3365-69-83 10:21:00 Test Item Value Reference Range Interpretation Comments Estimated % Lysis Rapid 0.5 See_Comment [Au tomated message] The (test code = Estimated syste m which generated % Lysis Rapid) this result t ransmitted reference range : <=7.5. The reference r pooja was not used to int erpret this result as normal/abnormal . [facility] HospitalRkwsxhpXXERSBOFDO9181-30-71 10:21:00 Test Item Value Reference Range Interpretation Comments G-value Rapid (test code = G-value 11.0 5.0-11.6 Rapid) [facility] HospitalGalmqgpFOJKXQSAMM0539-84-91 10:21:00 Test Item Value Reference Range Interpretation Comments Max Amplitude Rapid (test code = Max 69 mm 52-71 Amplitude Rapid) [facility] HospitalXruduxmONZGRJKIQN6925-85-13 10:21:00 Test Item Value Reference Range Interpretation Comments ACT (TEG) Rapid (test code = ACT (TEG) 105 s 86-118 Rapid) [id number] 10:21:00 Test Item Value Reference Range Interpretation Comments R-time Rapid (test code = R-time 0.6 min 0.4-0.7 Rapid) [id number] 10:21:00 Test Item Value Reference Range Interpretation Comments Split Point Rapid (test code = Split 0.3 min Point Rapid) [id number] 10:21:00 Test Item Value Reference Range Interpretation Comments Angle Rapid (test code = Angle 76 degrees 64-80 Rapid) [facility] [id number] 10:21:00 Test Item Value Reference Range Interpretation Comments K-time Rapid (test code = K-time 0.9 min 0.6-2.3 Rapid) [id number] 10:21:00 Test Item Value Reference Range Interpretation Comments Ca Ion WB (test code = Ca Ion WB) 1.07 1.05-1.25 [facility] [id number] 10:21:00 Test Item Value Reference Range Interpretation Comments Ca Norm WB (test code = Ca Norm WB) 1.07 1.05-1.25 [facility]
--- NOTE | 2022-08-17 11:22 | RAD REPORT ---
EXAM DESCRIPTION: RAD - Wrist Right 3 View - 08/17/2022 11:06 am CLINICAL HISTORY: DEFORMITY COMPARISON: No comparisons FINDINGS/IMPRESSION: Impacted distal radial fracture involving the metaphysis. No definite intra-art icular extension. Dorsal tilt of the distal radius. An ulnar styloid fracture is present as well. Mil d degenerative changes are present in the carpus.
[2022-08-17] MEDS ORDERED: ETOMIDATE 20 MG/10 ML VIAL IV ONE (11:34)
--- NOTE | 2022-08-17 12:53 | EDPHYS ---
Physician Documentation [facility] Name: Radha Khan Age: 62 yrs Sex: Female : 1960 Arrival Date: 08/17/2022 Time: 10:34 Bed 7 Private MD: ED Physician Gerald Multani HPI: 08/17 11:53 This 62 yrs old Female presents to ER via Ambulatory with complaints of Wrist Injury. sp3 11:53 62-year-old female with history of hypertension, prior TBI, prior CVA who presents with sp3 a ground-level mechanical FOOSH injury fall injuring her right wrist just prior to arrival. She was walking the dog when this happened. No other injuries including head injury and no reports of loss of consciousness. There are no breaks in the skin. She states that she heard a "crack" and states there is obvious deformity to her hand. Last food intake was yesterday p.m. and last liquid intake was water "several sips" approximately 2 hours prior to arrival. No prior injury to that hand/wrist.. Historical: - Allergies: 11:26 Sulfa (Sulfonamide Antibiotics); ph 11:26 SHELLFISH; ph 11:26 Lisinopril; ph - PMHx: 11:26 Hypertensive disorder; TBI; CVA; CHF; ph - PSHx: 11:26 Appendectomy; Tonsillectomy; carpal tunnel; tubal ligation; abdominoplasty; bladder ph suspension; - Immunization history:: Adult Immunizations unknown. - Social history:: Smoking status: Patient reports the use of cigarette tobacco products, smokes one-half pack cigarettes per day. ROS: 11:56 Constitutional: Negative for fever, chills, and weight loss, Eyes: Negative for injury, sp3 pain, redness, and discharge, ENT: Negative for injury, pain, and discharge, Neck: Negative for injury, pain, and swelling, Cardiovascular: Negative for chest pain, palpitations, and edema, Respiratory: Negative for shortness of breath, cough, wheezing, and pleuritic chest pain, Abdomen/GI: Negative for abdominal pain, nausea, vomiting, diarrhea, and constipation, Back: Negative for injury and pain, Skin: Negative for injury, rash, and discoloration, Neuro: Negative for headache, weakness, numbness, tingling, and seizure, Psych: Negative for depression, anxiety, suicide ideation, homicidal ideation, and hallucinations, Allergy/Immunology: Negative for hives, rash, and allergies, Endocrine: Negative for neck swelling, polydipsia, polyuria, polyphagia, and marked weight changes. 11:56 All other systems are negative. Exam: 11:56 Constitutional: This is a well developed, well nourished patient who is awake, alert, sp3 and in no acute distress. Head/Face: Normocephalic, atraumatic. Neck: Trachea midline, no thyromegaly or masses palpated, and no cervical lymphadenopathy. Supple, full range of motion without nuchal rigidity, or vertebral point tenderness. No Meningismus. Chest/axilla: Normal chest wall appearance and motion. Nontender with no deformity. No lesions are appreciated. Cardiovascular: Regular rate and rhythm with a normal S1 and S2. No gallops, murmurs, or rubs. Normal PMI, no JVD. No pulse deficits. Respiratory: Lungs have equal breath sounds bilaterally, clear to auscultation and percussion. No rales, rhonchi or wheezes noted. No increased work of breathing, no retractions or nasal flaring. Abdomen/GI: Soft, non-tender, with normal bowel sounds. No distension or tympany. No guarding or rebound. No evidence of tenderness throughout. Skin: Warm, dry with normal turgor. Normal color with no rashes, no lesions, and no evidence of cellulitis. Neuro: Awake and alert, GCS 15, oriented to person, place, time, and situation. Cranial nerves II-XII grossly intact. Motor strength 5/5 in all extremities. Sensory grossly intact. Cerebellar exam normal. Normal gait. Psych: Awake, alert, with orientation to person, place and time. Behavior, mood, and affect are within normal limits. 11:56 Musculoskeletal/extremity: Posterior deformity noted. Pulses are present radial and distal neurovascular exam is normal including capillary refill. Proximal exam of the elbow is normal with mild pain on supination and pronation but no pain at elbow or any joint proximal. No other injuries noted.. Vital Signs: 11:29 BP 145 / 92; Pulse 72; Resp 16; Temp 97.8(TE); Pulse Ox 97% on R/A; Weight 53.52 kg; ph Height 5 ft. 4 in. (162.56 cm); 12:25 BP 158 / 84; Pulse 63; Resp 12; Pulse Ox 96% on R/A; ph 13:30 BP 141 / 89; Pulse 68; Resp 16; Temp 97.9; Pulse Ox 96% on R/A; ph 11:29 Body Mass Index 20.25 (53.52 kg, 162.56 cm) ph MDM: 10:58 Patient medically screened. sp3 11:57 Data reviewed: vital signs, nurses notes. ED course: 62-year-old female with isolated sp3 right wrist FOOSH Colles' fracture requiring reduction and splinting. Procedural sedation will be employed using milligrams of etomidate. Patient has been placed on the monitor, with IV access, on oxygen 2 L, and consented by me for procedure. I will be manual reduction and subsequent follow-up with orthopedic surgery after application of volar wrist splint. There is no pain in the anatomical snuffbox and the neurovascular exam will be performed post-procedure and x-rays taken.. 12:07 ED course: Procedure completed and patient tolerated procedure without any sp3 complications. Patient is now awake and we will follow standard protocol on post sedation for discharge. Capillary refill was normal post procedure and postprocedure x-ray has been ordered and will be reviewed.. 12:53 ED course: Post reduction x-ray demonstrates good allignment. . sp3 08/17 10:54 Order name: Wrist Right 3 View XRAY; Complete Time: 12:54 sp3 08/17 12:08 Order name: Wrist Right 2 View XRAY eb 08/17 10:54 Order name: NPO; Complete Time: 11:13 sp3 08/17 11:17 Order name: Cardiac monitoring; Complete Time: 11:30 sp3 08/17 11:17 Order name: IV Saline Lock; Complete Time: 11:30 sp3 08/17 11:17 Order name: O2 Per Protocol; Complete Time: 11:30 sp3 08/17 11:17 Order name: O2 Sat Monitoring; Complete Time: 11:30 sp3 08/17 11:17 Order name: Conscious Sedation; Complete Time: 11:56 sp3 08/17 11:17 Order name: Splint - Wrist; Complete Time: 12:07 sp3 Administered Medications: 12:02 Drug: Etomidate 10 mg {Note: per Dr Multani.} Route: IVP; Site: left antecubital; ph 12:05 Follow up: Response: No adverse reaction; Patient is sedated; RASS: Light sedation (-2) ph 13:20 Drug: HYDROcodone-acetaminophen 5 mg-325 mg 1 tabs Route: PO; vg1 13:30 Follow up: Response: Medication administered at discharge. vg1 Disposition Summary: 08/17/22 12:52 Discharge Ordered Location: Home sp3 Condition: Stable sp3 Diagnosis - Colles' fracture of right radius sp3 Followup: sp3 - With: Sebastian Mendez MD - When: Upon discharge from the Emergency Department - Reason: Continuance of care Discharge Instructions: - Discharge Summary Sheet sp3 - Colles Fracture sp3 Forms: - Medication Reconciliation Form sp3 - Thank You Letter sp3 - Work release form ph - Antibiotic Education sp3 - Prescription Opioid Use sp3 Prescriptions: - Diclofenac Sodium 75 mg Oral Tablet Sustained Release - take 1 tablet by ORAL route 2 times per day; 30 tablet; Refills: 0, Product sp3 Selection Permitted Signatures: Dispatcher [employer] Galina Mccoy, RN RN ph Mary Munoz RN RN vg1 Gerald Multani MD MD sp3
--- NOTE | 2022-08-17 12:53 | ER ---
Nurse's Notes [facility] Name: Radha Khan Age: 62 yrs Sex: Female : 1960 Arrival Date: 08/17/2022 Time: 10:34 Bed 7 Private MD: Diagnosis: Colles' fracture of right radius Presentation: 08/17 11:25 Chief complaint: Patient states: Fell while walking dog, injury sustained to R wrist, ph denies LOC. Coronavirus screen: Vaccine status: Patient reports receiving the 1st dose of the Covid vaccine. Ebola Screen: No symptoms or risks identified at this time. Initial Sepsis Screen: Does the patient meet any 2 criteria? Yes Does the patient have a suspected source of infection? No. Patient's initial sepsis screen is negative. Risk Assessment: Do you want to hurt yourself or someone else? Patient reports no desire to harm self or others. Onset of symptoms was August 17, 2022. 11:25 Method Of Arrival: Ambulatory 11:25 Acuity: [place] 3 ph Triage Assessment: 11:34 Injury Description: Deformity sustained to Right wrist. vg1 Historical: - Allergies: 11:26 Sulfa (Sulfonamide Antibiotics); ph 11:26 SHELLFISH; ph 11:26 Lisinopril; ph - PMHx: 11:26 Hypertensive disorder; TBI; CVA; CHF; ph - PSHx: 11:26 Appendectomy; Tonsillectomy; carpal tunnel; tubal ligation; abdominoplasty; bladder ph suspension; - Immunization history:: Adult Immunizations unknown. - Social history:: Smoking status: Patient reports the use of cigarette tobacco products, smokes one-half pack cigarettes per day. Screenin:29 Abuse screen: Denies threats or abuse. Denies injuries from another. Nutritional ph screening: No deficits noted. Tuberculosis screening: No symptoms or risk factors identified. Fall Risk None identified. Assessment: 11:32 General: Appears uncomfortable, Behavior is cooperative, crying. Pain: Complains of vg1 pain in Right wrist, right hand Pain currently is 8 out of 10 on a pain scale. Noted to be guarding. 11:32 Neuro: Level of Consciousness is awake, alert, obeys commands, Oriented to person, vg1 place, time, situation. Cardiovascular: Capillary refill < 3 seconds in bilateral fingers Patient's skin is warm and dry. Respiratory: Airway is patent Respiratory effort is even, unlabored. GI: No signs and/or symptoms were reported involving the gastrointestinal system. : No signs and/or symptoms were reported regarding the genitourinary system. EENT: No signs and/or symptoms were reported regarding the EENT system. Derm: Skin is pink, warm \T\ dry. Musculoskeletal: Capillary refill < 3 seconds, in right fingers. Swelling present in Right wrist. 12:05 Reassessment: Patient appears in no apparent distress at this time. Dr Multani at bedside ph for conscious sedation and reduction of R wrist fracture, pt tolerating well, see flowsheet for VS during procedure. Vital Signs: 11:29 BP 145 / 92; Pulse 72; Resp 16; Temp 97.8(TE); Pulse Ox 97% on R/A; Weight 53.52 kg; ph Height 5 ft. 4 in. (162.56 cm); 12:25 BP 158 / 84; Pulse 63; Resp 12; Pulse Ox 96% on R/A; ph 13:30 BP 141 / 89; Pulse 68; Resp 16; Temp 97.9; Pulse Ox 96% on R/A; ph 11:29 Body Mass Index 20.25 (53.52 kg, 162.56 cm) ph ED Course: 10:34 Patient arrived in ED. as 10:40 Gerald Multani MD is Attending Physician. sp3 11:08 Wrist Right 3 View XRAY In Process Unspecified. EDMS 11:24 Galina Peraza, RN is Primary Nurse. ph 11:26 Triage completed. ph 11:29 Arm band placed on Patient placed in an exam room. ph 11:30 Patient has correct armband on for positive identification. Bed in low position. Call ph light in reach. Side rails up X 1. Client placed on continuous cardiac and pulse oximetry monitoring. NIBP monitoring applied. Door closed. Noise minimized. 11:31 Inserted saline lock: 20 gauge in left antecubital area, using aseptic technique. vg1 11:50 Consent for conscious sedation explained by physician, signed by patient. ph 12:05 Assist provider with fracture care of right wrist Fracture is closed. Obvious deformity ph is noted. Circulation, motor and sensation is intact. Set up for procedure. Performed by Gerald Multani MD Reduced with physical manipulation. Immobilized with OCL splint, Post immobilization, circulation, motor and sensation remain intact. Patient tolerated well. 12:07 Orthoglass splint: Volar splint applied on right arm. 12:52 Sebastian Mendez MD is Referral Physician. sp3 13:02 Wrist Right 2 View XRAY In Process Unspecified. EDMS 13:30 IV discontinued, intact, bleeding controlled, No redness/swelling at site. Pressure ph dressing applied. Administered Medications: 12:02 Drug: Etomidate 10 mg {Note: per Dr Multani.} Route: IVP; Site: left antecubital; ph 12:05 Follow up: Response: No adverse reaction; Patient is sedated; RASS: Light sedation (-2) ph 13:20 Drug: HYDROcodone-acetaminophen 5 mg-325 mg 1 tabs Route: PO; vg1 13:30 Follow up: Response: Medication administered at discharge. vg1 Medication: 11:29 VIS not applicable for this client. ph Outcome: 12:52 Discharge ordered by MD. sp3 13:32 Patient left the ED. eb 13:32 Discharged to home ambulatory. ph 13:32 Condition: good 13:32 Discharge instructions given to patient, Instructed on discharge instructions, follow up and referral plans. medication usage, Demonstrated understanding of instructions, follow-up care, medications, Prescriptions given X 1. Signatures: Dispatcher [employer] EDIA Rosangela Hightower Shelby, RN RN Galina Peraza RN RN Krystle Montelongo Victoria, RN RN vg1 Gerald Multani MD MD sp3 Corrections: (The following items were deleted from the chart) 11:34 11:32 Pain: Complains of pain in Right wrist, right hand Pain currently is 8 out of 10 vg1 on a pain scale. Noted to be guarding, vg1 13:31 13:29 HYDROcodone-acetaminophen 5 mg-325 mg 2 tabs PO vg1 vg1 13:32 13:20 HYDROcodone-acetaminophen 5 mg-325 mg 1 tabs PO vg1 vg1
[2022-08-17] MEDS ORDERED: HYDROCODONE/APAP 5/325 MG TAB ONE (13:07)
--- NOTE | 2022-08-17 13:11 | RAD REPORT ---
EXAM DESCRIPTION: RAD - Wrist Right 2 View - 08/17/2022 1:00 pm CLINICAL HISTORY: post reduction COMPARISON: Wrist Right 3 View dated 08/17/2022 FINDINGS/IMPRESSION: Postreduction demonstrating improved alignment of the distal radial fracture wi th less than a quarter shaft width of displacement and no longer any significant angulation.
[2022-08-17 13:42] VITALS: TEMP 97.8
[2022-08-17 13:52] VITALS: BP 158/84; O2SAT 96
== END 2022-08-17 13:32 | disposition home or self-care (01) ==
LOC: ER 10:30
PROC: 0PSHXZZ Reposition Right Radius, External Approach (ICD-10-PCS; principal; 2022-08-17)
DX: S52.531A Colles' fracture of right radius, initial encounter for closed fracture (principal); I10 Essential (primary) hypertension; F17.210 Nicotine dependence, cigarettes, uncomplicated; Z88.2 Allergy status to sulfonamides; Z88.8 Allergy status to other drugs, medicaments and biological substances; Z91.013 Allergy to seafood; Z87.820 Personal history of traumatic brain injury
CPT/HCPCS: 96374; 99284

== ENCOUNTER 2023-08-04 14:06 | Inpatient (IN) | payer BC ==
--- OUTSIDE RECORDS SUMMARY | 2023-08-04 14:24 | XMS REPORT | Continuity of Care Document ---
:1960 Author Organization [facility] t Address [address] [place] [address] Care Team Providers Name Role Phone Jaya ECHEVERRIA, Darnell Dale Primary Care Physician [phone] Helio Arita MD Attending Clinician Joellen Max MA Attending Clinician Unavailable Dequan Soriano MD Attending Clinician MD DAMON PUENTES Attending Clinician UnavailDAMON Goodman Attending Clinician Unavailable Melanie Vo Attending Clinician MD DAMON PUENTES Admitting Clinician UnavailDAMON Goodman Admitting Clinician Unavailable Melanie Vo Admitting Clinician [...] gangrene Heartburn Heartburn Disease Active Met hodi 9-10 st 00:00: Hospita 00 l Diverticul Diverticul [...] 05-18 22:14:00 l 05/18/2019 00:08: Michael taveras 00 [facility] Angio-mary beth Angio-mary beth Disease Active M ethodi a a 7-09 st 00:00: Hospita 00 l Colon Colon Disease Active Overview: Method i cancer cancer 03-[address] screening screening 00:00: g of this H ospita 00 note l might be different from the original. Added automatic ally from request for surgery [id number] Gastroesop Gastroesop Disease Active Overview : Methodi hageal hageal [address] reflux reflux 00:00: g of this Hospita disease disease 00 note l might be different from the original. 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 00:00: Ho spita heart heart 00 l failure failure TRAUM TRAUM Diagnosis Active 2019-06-03 Mem oria SUBDR HEM SUBDR HEM 22:14:00 l W LOC OF W LOC OF Michael n UNSP UNSP DURATION, DURATION, Active [facility] ILLNESS, ILLNESS, Diagnosis Active 2019-05-18 Memoria UNSPECIFIE UNSPECIFIE 04:18:00 l D D Active Lucien [facility] Illness, Illness, Problem 2019-05-24 Memoria unspecifie unspecifie 21:58:01 l d d Lucien 05/24/2019 [facility] Allergies, Adverse Reactions, Alerts Allergy Allergy Status Severity Reaction(s) Onset Inactive Treating Comm ents Source Name Type Date Date Clinician Lisinopr Propensi Active Swelling Meth mary il ty to 14 st adverse 00:00: Hospita reaction 00 l s to drug Sulfa Propensi Active Anaphylaxis Met hodi (Sulfona ty to 01-16 st mide adverse 00:00: Hospita Antibiot reaction 00 l ics) s to drug Tramadol Propensi Active Hives Method i ty to 01-16 adverse 00:00: Hospita reaction 00 l s [...] Comments Start Date Stop Date Source Natural mother Thyroid disease Metho [facility] Natural mother Hypertension Method[facility] t [facility] Natural father [facility] Social History Social Habit Start Date Stop Date Quantity Comments Source Sexual orientation 2019-06-21 Heterosexual Meth odist 11:39:51 (finding) Hospital History of tobacco Smokes tobacco [facility] use daily Hospital Cigarettes smoked 2023-01-09 2023-01-[address] current (pack per 00:00:00 00:00:00 Hospita l day) - Reported Cigarette 2023-01-09 2023-01-09 [facility] pack-years 00:00:00 00:00:00 Hospital Tobacco use and 2023-01-09 2023-01-09 Smokeless tobacco [facility] exposure 00:00:00 00:00:00 non-user Hospital Alcohol intake 2023-01-09 2023-01-09 Current drinker of Me thodist 00:00:00 00:00:00 alcohol (finding) Hospita l History of Social 2023-01-09 2023-01-[address] function 00:00:00 00:00:00 Hospital Social History 2019-05-18 2019-05-18 [facility] Gretel marcano 23:25:12 23:25:12 Alcohol Comment 2019-05-18 2019-05-18 daily [facility] 00:00:00 00:00:00 [facility] Sex Assigned At [birth year] F [facility] 00:00:00 00:00:00 Hospital Smoking Status Start Date Stop Date Source Smokes tobacco daily 2023-01-09 00:00:00 [facility] Medications Ordered Filled Start Stop Current Ordering Indication Dosage Frequency Signature Comments Components Source Medication Medication Date Date Medication? Clinician (SIG) Name Name hydrALAZINE Yes 50mg Q.5D Take 50 mg Methodi (APRESOLINE 3-[address] ) 50 MG 08:47: (two) Hospita tablet 53 times a l day. carvediloL Yes 25mg Q.5D Take 25 mg M ethodi (COREG) 25 3-[address] MG tablet 08:47: (two) Hospita 22 times a l day with meals. atorvastati Yes 20mg QD Take 20 mg Methodi n (LIPITOR) 3-[address] 20 mg 08:47: daily. Hospita tablet 19 Default OP l ins sertraline Yes 100mg QD Take 1 Meth mary (ZOLOFT) 3-[address] 100 MG 08:09: (100 mg Hospita tablet 49 total) by l mouth daily. [place] [id number] 1.5{tbl QD Take 1.5 Methodi -acetaminop 3-30 } tablets by st hen (NORCO) 08:09: mouth Hospi ta 10-325 mg 49 daily l per tablet .acute pain. Takes one in the morning and half at night butalbital- Yes 1{tbl} Q.5D Take 1 Me thodi acetaminoph 3-[address] en-caff 08:09: mouth 2 Hospita (FIORICET, 49 (two) l ESGIC) times a 50-325-40 day. mg per tablet acetaZOLAMI 2022-0 Yes 500mg QD Take 1 Met hodi DE (DIAMOX) 3-[address] 500 mg 08:09: (500 mg Hospita capsule 49 total) by l mouth daily. topiramate 2022-0 Yes 100mg Q.5D Take 1 Meth mary (TOPAMAX) 3-[address] 100 MG 08:09: (100 mg Hospita tablet 49 total) by l mouth 2 (two) times a day. cholecalcif 2022-0 Yes 4000U QD Take 2 Met hodi susy, 3-[address] vitamin D3, 08:09: (4,000 Hosp soledad 50 mcg 49 Units l (2,000 total) by unit) mouth capsule daily. capsule ascorbic 2022-0 Yes 1000mg QD Take 1 Metho di acid, 3-[address] vitamin C, 08:09: (1,000 mg Ho spita (VITAMIN C) 49 total) by l 1000 MG mouth tablet daily. erenumab-ao 2022-0 Yes 140mg Q28D Inject 140 Methodi oe (Aimovig 3-[address] Autoinjecto 08:09: the skin Ho spita r) 140 49 every 28 l mg/mL days. syringe diazePAM 2022-0 Yes 5mg Q.5D Take 1 Methodi (VALIUM) 5 3-30 tablet (5 st MG tablet 08:09: mg total) Hos leonard 49 by mouth 2 l (two) times a day. UNABLE TO 2022-0 Yes b complex Met hodi FIND 3-30 st 08:09: Hospita 49 l omeprazole 2022-0 2024- No 40mg QD Take 1 Meth mary (PriLOSEC) 3-30 03-[address] 40 MG 00:00: 04:59 (40 mg Hospita capsule 00 :00 total) by l mouth daily. omeprazole 2021-10 Yes TAKE ONE Met hodi (PriLOSEC) 0-[address] 40 MG 00:00: MOUTH Hospita capsule 00 DAILY l omeprazole 2021-10 Yes TAKE ONE Met hodi (PriLOSEC) 0-[address] 40 MG 00:00: MOUTH Hospita capsule 00 DAILY l UNABLE TO 2021-0 Yes b complex Met hodi FIND 2-25 st 13:20: Hospita 28 l sertraline 2021-0 Yes 100mg QD Take 100 Me thodi (ZOLOFT) 2-[address] 100 MG 13:20: mouth Hospita tablet 01 daily. l hydrALAZINE 2021-0 Yes 50mg Q.5D Take 50 mg Methodi (APRESOLINE 2-[address] ) 50 MG 13:20: (two) Hospita tablet 01 times a l day. HYDROcodone 2021-0 Yes [id number] 1.5{tbl QD Take 1.5 Methodi -acetaminop 2-25 [...] a 50-325-40 day. mg per tablet acetaZOLAMI 2021-0 Yes 500mg QD Take 500 M ethodi DE (DIAMOX) 2-[address] 500 mg 13:20: mouth Hospita capsule 01 daily. l topiramate 2021-0 Yes 100mg Q.5D Take 100 Me thodi (TOPAMAX) 2-[address] 100 MG 13:20: mouth 2 Hospita tablet 01 (two) l times a day. cholecalcif 2021-0 Yes 2000U QD Take 2,000 Methodi susy, 2-[address] vitamin D3, 13:20: mouth Hospi ta (Vitamin 01 daily. l D3) 50 mcg (2,000 unit) capsule capsule ascorbic 2021-0 Yes 1000mg QD Take 1,000 M ethodi acid, 2-[address] vitamin C, 13:20: mouth Hospit a (vitamin C) 01 daily. l 1000 MG tablet carvediloL 2021-0 Yes 25mg Q.5D Take 25 mg M ethodi (COREG) 25 2-[address] MG tablet 13:20: (two) Hospita 01 times a l day with meals. atorvastati Yes 20mg QD Take 20 mg Methodi n (LIPITOR) 2-[address] 20 mg 13:20: daily. Hospita tablet 01 Default OP l ins erenumab-ao Yes 140mg [...] MOUTH Hospita capsule 00 :00 DAILY l omeprazole 2020-10- No TAKE ONE Me thodi (PriLOSEC) 0-26 10-[address] 40 MG 00:00: 00:00 MOUTH Hospita capsule 00 :00 DAILY l valsartan 2020-0 Yes Methodi (DIOVAN) 9-10 st 160 MG 00:00: Hospita tablet 00 l valsartan 2020-0 Yes Methodi (DIOVAN) 9-10 st 160 MG 00:00: Hospita tablet 00 l potassium 2020-0 Yes 10meq QD Take 10 Meth mary chloride 9-[address] (KLOR-CON) 00:00: mouth Hospit a 10 MEQ CR 00 daily. l tablet potassium 2020-0 Yes 10meq QD Take 10 Meth mary chloride 9-[address] (KLOR-CON) 00:00: mouth Hospit a 10 MEQ CR 00 daily. l tablet Acetaminoph Yes 1 tab, PO, Memoria en 300 MG / 8-10 Q6H, PRN l Codeine 19:19: Pain, X 5 Brenda nn Phosphate 00 day, # 20 30 MG Oral tab, 0 Tablet Refill(s) [Tylenol with Codeine #3] Acetaminoph Yes 1 tab, PO, Memoria en 300 MG / 8-10 Q6H, PRN l Codeine 19:19: Pain, X 5 Brenda nn Phosphate 00 day, # 20 30 MG Oral tab, 0 Tablet Refill(s) [Tylenol with Codeine #3] Levetiracet 2019 Yes 500 mg = 1 Memoria am 500 MG 8-10 tab, PO, l Oral Tablet 19:18: Q12H, # 8 H ermann 27 tab, 0 Refill(s), Pharmacy: [place] [id number] Levetiracet Yes 500 mg = 1 Memoria am 500 MG 8-10 tab, PO, l Oral Tablet 19:18: Q12H, # 8 H ermann 27 tab, 0 Refill(s), Pharmacy: [place] [id number] Potassium No Notes: Memori a Chloride 8-10 (Same as: l 13:: K-Dur 20) Lucien 00 "Do Not Crush" Give with food and full glass of water For patients unable to swallow tablet, dissolve in one half glass of water. Allow about 2 minutes for the tablets to disintegra te. Stir before giving to prepare slurry and administer . Please exclude Patient s with feeding tube less than 14 German (Dobhoff, J-tube etc) and pediatric and patients. Potassium No Notes: Memori a Chloride 8-10 (Same as: l : K-Dur 20) Comfort 00 "Do Not Crush" Give with food and full glass of water For patients unable to swallow tablet, dissolve in one half glass of water. Allow about 2 minutes for the tablets to disintegra te. Stir before giving to prepare slurry and administer . Please exclude Patient s with feeding tube less than 14 German (Dobhoff, J-tube etc) and pediatric and patients. Aspirin 81 2019 No 81 mg = 1 Me moria MG Chewable 8-09 tab, PO, l Tablet 17:56: Daily, # Comfort 00 60 tab, 0 Refill(s), other Aspirin 81 2019-0 No 81 mg = 1 Me moria MG Chewable 8-09 tab, PO, l Tablet 17:56: Daily, # Comfort 00 60 tab, 0 Refill(s), other multivitami 2019 No Notes: Shane jannie n with 05-21 (Same l minerals 14:00: as:Thera-M Her desouza 00 , Theragran- M) WASTE: F/P - Black; E - Municipal Trash Bin Give with food. multivitami No Notes: Shane jannie n with 05-21 (Same l minerals 14:00: as:Thera-M Her desouza 00 , Theragran- M) WASTE: F/P - Black; E - Municipal Trash Bin Give with food. Morphine No Notes: Memoria 05-20 (Same l 20:08: as:MORPhin Comfort 00 e Sulfate) Morphine No Notes: Memoria 05-20 (Same l 20:08: as:MORPhin Lucien 00 e Sulfate) Acetaminoph Yes 1 tab, PO, Memoria en 300 MG / 05-20 Q6H, PRN l Codeine 17:56: Pain, # 20 Herm souleymane Phosphate 00 tab, 0 30 MG Oral Refill(s) Tablet [Tylenol with Codeine #3] Levetiracet No 500 mg = 1 Memoria am 500 MG 05-20 tab, PO, l Oral Tablet 17:56: Q12H, # 8 H ermann 00 tab, 0 Refill(s), other Acetaminoph Yes 1 tab, PO, Memoria en 300 MG / 05-20 Q6H, PRN l Codeine 17:56: Pain, # 20 Herm souleymane Phosphate 00 tab, 0 30 MG Oral Refill(s) Tablet [Tylenol with Codeine #3] Levetiracet No 500 mg = 1 Memoria am 500 MG 08 tab, PO, l Oral Tablet 17:56: Q12H, # 8 H ermann 00 tab, 0 Refill(s), other Hydralazine No Notes: Shane jannie 05-20 (Same as: l 17:31: Apresoline Lucien 00 ) May interfere w/enteral feedings Take With Food. Hydralazine No Notes: Shane jannie 05-20 (Same as: l 17:31: Apresoline Comfort 00 ) May interfere w/enteral feedings Take With Food. Oxycodone No Notes: Memori a Hydrochlori 05-20 (Same as: l de 5 MG 13:21: Roxicodone Herm souleymane Oral Tablet 00 ) Oxycodone No Notes: Memori a Hydrochlori 8-08 (Same as: l de 5 MG 13:21: Roxicodone Herm souleymane Oral Tablet 00 ) heparin No Notes: Memoria sodium, 8-07 porcine l porcine 21:00: heparin Lucien 2500 UNT/ML 00 Injectable Solution heparin No Notes: Memoria sodium, 8-07 porcine l porcine 21:00: heparin Lucien 2500 UNT/ML 00 Injectable Solution Morphine No Notes: Memoria 8-07 (Same l 14:05: as:MORPhin Lucien 00 e Sulfate) Morphine No Notes: Memoria 8-07 (Same l 14:05: as:MORPhin Lucien 00 e Sulfate) Furosemide No Notes: Memor ia 40 MG Oral 8 (Same as: l Tablet 14:00: Lasix) February Brenda nn cause GI upset. Give with food or milk. Omeprazole No 20 mg, Memor ia 8 Route: PO, l 14:00: Drug form: Comfort 00 DRC, Daily, Dosing Weight 86, kg, Start date: 05/19/19 9:00:00 CDT, Duration: 30 day, Stop date: 06/17/19 9:00:00 CDT Sertraline No Notes: Memor ia 8-07 (Same as: l 14:00: Zoloft) Comfort 00 sennosides, No Notes: Shane jannie CHCF 8.6 MG 05-19 (Same as: l Oral Tablet 14:00: Senokot) He rm Docusate No Notes: Memoria 8-07 (Same as: l 14:00: Colace) Comfort 00 (Do Not Crush) Furosemide No Notes: Memor ia 40 MG Oral 8- (Same as: l Tablet 14:00: Lasix) February cause GI upset. Give with food or milk. Omeprazole No 20 mg, Memor ia 8-07 Route: PO, l 14:00: Drug form: Lucien 00 DRC, Daily, Dosing Weight 86, kg, Start date: 05/19/19 9:00:00 CDT, Duration: 30 day, Stop date: 06/17/19 9:00:00 CDT Sertraline No Notes: Memor ia 8 (Same as: l 14:00: Zoloft) sennosides, No Notes: Shane jannie CHCF 8.6 MG 05-19 (Same as: l Oral Tablet 14:00: Senokot) He Docusate No Notes: Memoria 8 (Same as: l 14:00: Colace) (Do Not Crush) Simvastatin No Notes: Shane jannie 8 (Same as: l 02:00: Zocor) Simvastatin No Notes: Shane jannie 8 (Same as: l 02:00: Zocor) carvedilol No Notes: Memor ia 8-06 Give with l 22:00: food. (Same As: Coreg) carvedilol No Notes: Memor ia 8-06 Give with l 22:00: food. (Same As: Coreg) carvedilol No 12.5 mg = Me moria 12.5 mg 8-06 1 tab, PO, l oral tablet 21:59: Q12H Michael n 00 One-A-Day Yes 1 tab, PO, Me moria Women 50 8-06 Daily, # l Plus oral 21:59: 90 tab, 0 Her desouza tablet 00 Refill(s) Hydralazine Yes 25 mg = 1 M emoria Hydrochlori 8-06 tab, PO, l de 25 MG 21:59: Q12H Lucien Oral Tablet carvedilol No 12.5 mg = Me moria 12.5 mg 8-06 1 tab, PO, l oral tablet 21:59: Q12H Michael n 00 One-A-Day Yes 1 tab, PO, Me moria Women 50 8-06 Daily, # l Plus oral 21:59: 90 tab, 0 Her desouza tablet 00 Refill(s) Hydralazine Yes 25 mg = 1 M emoria Hydrochlori 8-06 tab, PO, l de 25 MG 21:59: Q12H Comfort Oral Tablet sertraline Yes 150 mg = Mem oria 100 mg oral 8-06 1.5 tab, l tablet 21:58: PO, Daily Michael n 00 sertraline Yes 150 mg = Mem oria 100 mg oral 05-18 1.5 tab, l tablet 21:58: PO, Daily Michael n 00 Protonix No Notes: Memoria 8-06 Tablet l 21:30: should not Lucien 00 be chewed or crushed. (Same as: Protonix) Protonix No Notes: Memoria 8-06 Tablet l 21:30: should not Comfort 00 be chewed or crushed. (Same as: Protonix) Potassium No Notes: Memori a Chloride 05-18 Infuse at l 18:51: a rate of Comfort 00 10 mEq/hr. (Same as: KCL) Calcium No Notes: Memoria Carbonate 05-18 (Same As: l 500 MG 18:51: Tums) Lucien Chewable 00 Calcium Tablet Carbonate 500 mg = 200 mg elemental calcium Dose = mg calcium carbonate ( mg elemental calcium) Calcium No Notes: Memoria Gluconate 05-18 WASTE: F/P l 18:51: - Sink; E Lucien 00 - Municipal Trash Bin potassium No Notes: Memori a phosphate-s 05-18 (Same as: l odium 18:51: Phos-NaK) Lucien phosphate 00 Each 1.5 250 mg-280 gm pkt has mg-160 mg 250mg oral powder phosphorou for s. Mix reconstitut w/2.5oz ion water and stir. potassium No Notes: Memori a phosphate 05-18 (Same as: l 18:51: K Comfort 00 Phosphate. ) Do not infuse phosphorou s concurrent ly in the same line as TPN or IVF that contains calcium. For double lumen central lines, phosphorou s may be infused in a separate lumen from TPN. 1 mMol phoshate has 1.47 mEq potassium Infuse over 4 hours Magnesium No Notes: Memori a Oxide 05-18 (Same as: l 18:51: Mag-Ox Comfort 00 400) Magnesium oxide 574rf=803l g elemental magnesium Dose=____m g magnesium oxide (___mg elemental magnesium) Magnesium No Notes: Memori a Sulfate 05-18 WASTE: F/P l 18:51: - Sink; E Lucien 00 - Municipal Trash Bin sodium No Notes: Memoria phosphate 8- Infuse l 18:51: over 4 Lucien 00 hour. Do not infuse phosphorou s concurrent ly in the same line as TPN or IVF that contains calcium. For double lumen central lines, phosphorou s may be infused in a separate lumen from TPN. Potassium No Notes: Memori a Chloride 05-18 Infuse at l 18:51: a rate of Lucien 00 10 mEq/hr. (Same as: KCL) Calcium No Notes: Memoria Carbonate 05-18 (Same As: l 500 MG 18:51: Tums) Lucien Chewable 00 Calcium Tablet Carbonate 500 mg = 200 mg elemental calcium Dose = mg calcium carbonate ( mg elemental calcium) Calcium No Notes: Memoria Gluconate 05-18 WASTE: F/P l 18:51: - Sink; E Comfort 00 - Municipal Trash Bin potassium No Notes: [...] Oxide 05-18 (Same as: l 18:51: Mag-Ox Comfort 00 400) Magnesium oxide 178qt=793b g elemental magnesium Dose=____m g magnesium oxide (___mg elemental magnesium) Magnesium No Notes: Memori a Sulfate 05-18 WASTE: F/P l 18:51: - Sink; E Lucien 00 - Municipal Trash Bin sodium No Notes: Memoria phosphate 05-18 Infuse l 18:51: over 4 Lucien 00 hour. Do not infuse phosphorou s concurrent ly in the same line as TPN or IVF that contains calcium. For double lumen central lines, phosphorou s may be infused in a separate lumen from TPN. Levetiracet No Notes: Shane jannie am 05-18 (Same l 14:00: as:Keppra) Levetiracet No Notes: Shane jannie am 05-18 (Same l 14:00: as:Keppra) Zofran No Notes: Memoria 05-18 (Same as: l 11:15: Zofran) MEDICATION WASTE Product Size: 4 mg Product Wasted: ___ mg Zofran No Notes: Memoria 05-18 (Same as: l 11:15: Zofran) Comfort 00 MEDICATION WASTE Product Size: 4 mg Product Wasted: ___ mg Acetaminoph No Notes: Do M emoria en 325 MG / 05-18 not exceed l Hydrocodone 11:14: 4gm/day of Lucien Bitartrate 00 acetaminop 10 MG Oral hen. (Same Tablet as: Peterman 325/10) Acetaminoph No Notes: Do M emoria en 05-18 not exceed l 11:14: 4 gm/day. Comfort 00 (Same as: Tylenol) Acetaminoph No Notes: Do M emoria en 325 MG / 05-18 not exceed l Hydrocodone 11:14: 4gm/day of Comfort Bitartrate 00 acetaminop 10 MG Oral hen. (Same Tablet as: Peterman 325/10) Acetaminoph No Notes: Do M emoria en 05-18 not exceed l 11:14: 4 gm/day. Comfort 00 (Same as: Tylenol) simvastatin Yes 20 mg = 1 M emoria 20 mg oral 05-18 tab, PO, l tablet 11:13: Bedtime, # Brenda nn 00 90 tab, 1 Refill(s) sertraline No 100 mg = 1 M emoria 100 mg oral 8-06 tab, PO, l tablet 11:13: Daily, # Comfort 00 30 tab, 0 Refill(s) omeprazole 2019- Yes 20 mg = 1 Me moria 20 mg oral 8-06 cap, PO, l delayed 11:13: Daily, # Michael n release 00 30 cap, 0 capsule Refill(s) Hydralazine No 10 mg = 1 M emoria Hydrochlori 8-06 tab, PO, l de 10 MG 11:13: ABXQ8H, 0 Herm souleymane Oral Tablet 00 Refill(s) Furosemide 2018- Yes 40 mg = 1 Me moria 40 MG Oral 8-06 tab, PO, l Tablet 11:13: Daily, # Lucien 00 30 tab, 0 Refill(s) carvedilol No 6.25 mg = Me moria 6.25 mg 8-06 1 tab, PO, l oral tablet 11:13: BID, # 180 Lucien 00 tab, 0 Refill(s) Aspirin 81 2019- No 81 mg = 1 Me moria MG Chewable 8-06 tab, PO, l Tablet 11:13: Daily, Comfort 00 tab, 0 Refill(s) simvastatin 2018- Yes 20 mg = 1 M emoria 20 mg oral 8-06 tab, PO, l tablet 11:13: Bedtime, # Brenda nn 00 90 tab, 1 Refill(s) sertraline No 100 mg = 1 M emoria 100 mg oral 8-06 tab, PO, l tablet 11:13: Daily, # Comfort 00 30 tab, 0 Refill(s) omeprazole 2019- Yes 20 mg = 1 Me moria 20 mg oral 8-06 cap, PO, l delayed 11:13: Daily, # Michael n release 00 30 cap, 0 capsule Refill(s) Hydralazine 2018- No 10 mg = 1 M emoria Hydrochlori 8-06 tab, PO, l de 10 MG 11:13: ABXQ8H, 0 Herm souleymane Oral Tablet 00 Refill(s) Furosemide 2019- Yes 40 mg = 1 Me moria 40 MG Oral 8-06 tab, PO, l Tablet 11:13: Daily, # Comfort 00 30 tab, 0 Refill(s) carvedilol 2018- No 6.25 mg = Me moria 6.25 mg 05-18 1 tab, PO, l oral tablet 11:13: BID, # 180 Comfort 00 tab, 0 Refill(s) Aspirin 81 2019-0 No 81 mg = 1 Me moria MG Chewable 05-18 tab, PO, l Tablet 11:13: Daily, Comfort 00 tab, 0 Refill(s) Sodium 2019-0 No 250 mL, Memoria Chloride 8-06 Rate: To l 0.9% 10:55: prime line Comfort (titrate) 00 and flush 250 mL remaining blood products., Dosing Weight 86.2, kg, Route: IV, Total Volume: 250, Start Date: 05/18/19 5:55:00 CDT, Duration: 1 day, Stop date: 05/19/19 5:54:00 CDT, Replace Every: 24 hr, 0 Sodium 2019-0 No 250 mL, Memoria Chloride 8- Rate: To l 0.9% 10:55: prime line Comfort (titrate) 00 and flush 250 mL remaining blood products., Dosing Weight 86.2, kg, Route: IV, Total Volume: 250, Start Date: 05/18/19 5:55:00 CDT, Duration: 1 day, Stop date: 05/19/19 5:54:00 CDT, Replace Every: 24 hr, 0 Sodium 2019-0 No 1,000 mL, Memori a Chloride 8 Rate: 50 l 0.9% IV 09:46: ml/hr, Lucien 1,000 mL 00 Infuse over: 20 hr, Route: IV, Total Volume: 1,000, Start date: 05/18/19 4:46:00 CDT, Duration: 30 day, Stop date: 06/17/19 4:45:00 CDT, 0 Sodium 2019-0 No 1,000 mL, Memori a Chloride 8-06 Rate: 50 l 0.9% IV 09:46: ml/hr, Lucien 1,000 mL 00 Infuse over: 20 hr, Route: IV, Total Volume: 1,000, Start date: 05/18/19 4:46:00 CDT, Duration: 30 day, Stop date: 06/17/19 4:45:00 CDT, 0 Immunizations Ordered Filled Immunization Date Status Comments [facility] e Immunization Name Name Tdap 2022-01-21 Completed [facility] 00:[facility]00 Hospital Tdap Unknown Completed [facility] Vital Signs Vital Name Observation Time Observation Value Comments Source Systolic blood 2022-01-21 19:39:00 138 mm[Hg] [facility] pressure Diastolic blood 2022-01-21 19:39:00 79 mm[Hg] [facility] pressure Heart rate 2022-01-21 19:39:00 54 /min [facility] Body temperature 2022-01-21 19:39:00 36.44 [facility] Respiratory rate 2022-01-21 19:39:00 17 /min [facility] Oxygen saturation in 2022-01-21 19:39:00 99 /min [facility] Arterial blood by Pulse oximetry Body height 2022-01-21 18:06:[address] [facility] Body weight 2022-01-21 18:06:[address] [facility] BMI 2022-01-21 18:06:00 20.60 kg/m2 [facility] Temperature Oral (F) 2019-05-22 16:35:00 98.7 F [facility] Respitory Rate 2019-05-22 16:35:00 Memori al Lucien Heart Rate 2019-05-22 16:35:00 [facility] Lucien Systolic (mm Hg) 2019-05-22 16:35:00 Shane rial Comfort Diastolic (mm Hg) 2019-05-22 16:35:00 Mem orial Lucien Heart Rate 2019-05-22 13:00:00 [facility] Comfort Systolic (mm Hg) 2019-05-22 13:00:00 Shane rial Lucien Diastolic (mm Hg) 2019-05-22 13:00:00 Mem orial Comfort Respitory Rate 2019-05-22 13:00:00 Memori al Comfort Temperature Oral (F) 2019-05-22 13:00:00 98.5 F [facility] Lucien Respitory Rate 2019-05-22 09:00:00 Memori al Comfort Systolic (mm Hg) 2019-05-22 09:00:00 Shane rial Comfort Diastolic (mm Hg) 2019-05-22 09:00:00 Mem orial Lucien Heart Rate 2019-05-22 09:00:00 [facility] Lucien Temperature Oral (F) 2019-05-22 09:00:00 98.0 F [facility] Lucien Weight 2019-05-18 15:56:00 [facility] Comfort BMI Calculated 2019-05-18 15:56:00 Memori al Comfort Height 2019-05-18 15:56:00 162.56 cm [facility] Comfort BMI Calculated 2019-05-18 12:38:00 Memori al Lucien Weight 2019-05-18 12:38:00 [facility] Comfort Height 2019-05-18 12:38:00 162.56 cm [facility] Lucien BMI Calculated 2019-05-18 12:36:00 Memori al Lucien Height 2019-05-18 12:36:00 162.56 cm [facility] Lucien Weight 2019-05-18 12:36:00 [facility] Lucien Procedures Procedure Date / Time Performing Clinician Source Performed XR KNEE 3 VW LEFT 2022-01-21 19:25:43 [facility] XR CHEST 1 VW PORTABLE 2022-01-21 19:25:11 [facility] CT CERVICAL SPINE WO 2022-01-21 19:13:32 [facility] CONTRAST CT HEAD WO CONTRAST 2022-01-21 19:13:17 [facility] HCG QUALITATIVE, SERUM 2022-01-21 18:38:00 [facility] SCREEN HC COMPLETE BLD COUNT 2022-01-21 18:38:00 [facility] W/AUTO DIFF COMPREHENSIVE METABOLIC 2022-01-21 18:38:00 [facility] PANEL TROPONIN T 2022-01-21 18:38:00 [facility] spital PROTHROMBIN TIME WITH INR 2022-01-21 18:38:00 [facility] PARTIAL THROMBOPLASTIN 2022-01-21 18:38:00 [facility] TIME (PTT) ALCOHOL LEVEL, BLOOD 2022-01-21 18:38:00 [facility] LACTIC ACID LEVEL, SEPSIS 2022-01-21 18:38:00 MerceditaDequan [facility] - NOW AND REPEAT 2X EVERY 3 HOURS ESTIMATED GFR 2022-01-21 18:38:00 Peyton Abel [facility] spital ECG ED PRELIMINARY 2022-01-21 18:37:22 Dequan Soriano [facility] INTERPRETATION ECG 12-LEAD 2022-01-21 18:10:18 Peyton Abel [facility] spital Plan of Care Planned Activity Planned Date Details Comments Source Future Scheduled 2023-07-30 Screening for [facility] Test 12:51:05 malignant neoplasm of colon (procedure) [code = 116537662] Future Scheduled 2023-07-30 Screening for [facility] Test 12:51:05 malignant neoplasm of colon (procedure) [code = 297142207] Future Scheduled 2023-07-30 Pneumococcal Vaccine: [facility] Test 12:51:05 Pediatrics (0 to 5 Years) and At-Risk Patients (6 to 64 Years) (1 - PCV) [code = Pneumococcal Vaccine: Pediatrics (0 to 5 Years) and At-Risk Patients (6 to 64 Years) (1 - PCV)] Future Scheduled 2023-07-30 Hepatitis C screening [facility] Test 12:51:05 (procedure) [code = 911048615] Future Scheduled 2023-07-30 Screening for [facility] Test 12:51:05 malignant neoplasm of cervix (procedure) [code = 730745990] Future Scheduled 2023-07-30 BREAST CANCER [facility] Test 12:51:05 SCREENING [code = BREAST CANCER SCREENING] Future Scheduled 2023-07-30 Screening for [facility] Test 12:51:05 malignant neoplasm of colon (procedure) [code = 214153840] Future Scheduled 2023-07-30 Screening for [facility] Test 12:51:05 malignant neoplasm of lung (procedure) [code = 402297334] Future Scheduled 2023-07-30 [facility] 12:[facility]05 of 2) [code = SHINGLES VACCINES (1 of 2)] Future Scheduled 2023-07-30 Screening for [facility] Test 12:51:05 malignant neoplasm of colon (procedure) [code = 232457288] Future Scheduled 2023-07-30 Screening for [facility] Test 12:51:05 malignant neoplasm of colon (procedure) [code = 023781117] Future Scheduled 2023-07-30 RSV VACCINES > 60 YR Met [facility] Test 12:51:05 (1 - 1-dose 60+ series) [code = RSV VACCINES > 60 YR (1 - 1-dose 60+ series)] Future Scheduled 2023-07-30 COVID-19 VACCINE (4 - [facility] Test 12:51:05 season) [code = COVID-19 VACCINE (4 - season)] Future Scheduled 2023-07-30 INFLUENZA VACCINE (#1) [facility] Test 12:51:05 [code = INFLUENZA VACCINE (#1)] Future Scheduled 2022-08-14 HEPATITIS B VACCINES Met [facility] Test 19:12:46 (1 of 3 - 3-dose series) [code = HEPATITIS B VACCINES (1 of 3 - 3-dose series)] Future Scheduled 2022-08-14 Pneumococcal Vaccine: [facility] Test 19:12:46 Pediatrics (0 to 5 Years) and At-Risk Patients (6 to 64 Years) (1 - PCV) [code = Pneumococcal Vaccine: Pediatrics (0 to 5 Years) and At-Risk Patients (6 to 64 Years) (1 - PCV)] Future Scheduled 2022-08-14 Hepatitis C screening [facility] Test 19:12:46 (procedure) [code = 632012758] Future Scheduled 2022-08-14 Screening for [facility] Test 19:12:46 malignant neoplasm of cervix (procedure) [code = 034387196] Future Scheduled 2022-08-14 BREAST CANCER [facility] Test 19:12:46 SCREENING [code = BREAST CANCER SCREENING] Future Scheduled 2022-08-14 COLONOSCOPY SCREENING [facility] Test 19:12:46 [code = COLONOSCOPY SCREENING] Future Scheduled 2022-08-14 Screening for [facility] Test 19:12:46 malignant neoplasm of lung (procedure) [code = 674628412] Future Scheduled 2022-08-14 SHINGLES VACCINES (1 Met [facility] Test 19:12:46 of 2) [code = SHINGLES VACCINES (1 of 2)] Future Scheduled 2022-08-14 COVID-19 VACCINE (4 - [facility] Test 19:12:46 Booster for Moderna series) [code = COVID-19 VACCINE (4 - Booster for Moderna series)] Future Scheduled 2022-08-14 INFLUENZA VACCINE Method [facility] Test 19:12:46 [code = INFLUENZA VACCINE] Encounters Start End Encounter Admission Attending Care Care Encounter Source Date/Time Date/Time Type Type Clinicians Facility Department ID 2019-05-18 Inpatient [facility] [id number] [facility] W 04:17:00 2023-01-09 2023-01-09 Telemedici Helio Arita 1.2.840.1 [id number] Methodi 08:30:00 08:42:37 [place] Gene [address]84.1.[address] 3.430.2.7 Hospit a .3.053559 l .8 2023-01-09 2023-01-09 Corinne Max 1.2.840.1 [id number] Methodi 00:00:00 00:00:00 mela Cuenca [address] 3.430.2.7 Hospit a .3.825850 l .8 2023-01-09 2023-01-09 Outpatient HELIO ARITA [facility] [id number] [place] 00:00:00 00:00:[address] 2022-08-06 2022-08-06 Refill Helio Arita 1.2.840.1 [id number] Methodi 00:00:00 00:00:[address] 3.430.2.7 Hospit a .3.344465 l .8 2022-08-06 2022-08-06 Refill Helio Arita 1.2.840.1 [id number] 21 [id number] [facility] 00:00:00 00:00:[address] 3.430.2.7 Hospit a .3.267857 l .8 2022-01-21 2022-01-21 Emergency Christie, 1.2.840.1 [id number] [facility]i 13:08:00 15:26:[address] 3.430.2.7 Hospit a .3.132562 l .8 2022-01-21 2022-01-21 Travel 1.2.840.1 1.2.722.926 [id number] [facility] 00:00:00 00:00:[address] 3.430.2.7 0.2.7.3.698 Ho spita .3.607624 084.8 l .8 2021-12-07 2021-12-07 Office Tisha Helio 1.2.840.1 [id number] 21 [id number] Methodi 13:00:00 13:48:55 Visit [place] [address]25.1.[address] 3.430.2.7 Hospit a .3.706384 l .8 2021-12-07 2021-12-07 Travel 1.2.840.1 1.2.748.130 [id number] [facility] 00:00:00 00:00:[address] 3.430.2.7 0.2.7.3.698 Ho spita .3.741723 084.8 l .8 2021-07-17 2021-07-17 Outpatient PRIV PRIV [id number] 0-2 [facility] 00:00:00 00:00:00 [id number] Medica l 2021-07-17 2021-07-17 Outpatient PRIV PRIV [id number] 0-2 [facility] 00:00:00 00:00:00 [id number] Medica l 2021-05-17 2021-05-[address] [facility] [id number] [place] 00:00:00 00:00:[address] 2021-04-02 2021-04-02 Outpatient [facility] [id number] [place] 00:00:00 00:00:[address] 2020-07-07 2020-07-[address] [facility] [id number] [place] 00:00:00 00:00:[address] 2019-05-18 2019-05-22 [facility]patient [facility] [id number] 21[facility]00 eric Mcgraw 18 l [facility] 2019-05-18 2019-05-22 Inpatient [facility] [id number] [facility] 09:17:00 21:00:00 eric Mcgraw 18 l [facility] 2019-05-18 2019-05-22 Outpatient Vo, [facility] [id number] 04:17:00 16:00:00 Melanie Blanchard 18 [facility] Results Test Description Test Time Test Comments Results Result Comments Source ECG 12 lead 2022-02-07 19:09:06 Test Item Value Reference Range Interpretation Comme nts Ventricular rate (test code = 253) Atrial rate (test code = 255) NM interval (test code = 266) QRSD interval [...] inversion no longer evident in Inferior leads- [facility] ED Preliminary Interpretation - Not an Hvnvi2781-14-58 18:37:22 Test Item Value Reference Range Interpretation Comments BOWEN (test code = BOWEN) Dequan Soriano MD 01/21/2022 2:31 [facility] ED Preliminary Interpretation - Not an OrderPerformed by: Dequan Soriano MDAuthorized by: Dequan Soriano MD ECG reviewed by ED Physician in the absence of a operating room nurse: yes Interpretation: Interpretation: abnormal Rate: ECG rate: 62 ECG rate assessment: normal Rhythm: Rhythm: sinus rhythm and A-V block QRS: QRS axis: Normal QRS intervals: NormalConduction: Conduction: abnormal Abnormal conduction: complete LBBB and 1st degree Lab Interpretation Abnormal (test code = 94068-8) [facility] [Presence] in Respiratory specimen by ALBERTO with probe uxggitffx5778-01-21 12:11:20 Test Item Value Reference Range Interpretation Comments SARS-CoV-2 (COVID-19) RNA Not detected Not-Detected [Presence] in Respiratory specimen by ALBERTO with probe detection (test code = 06838-8) Whether patient is employed in a healthcare setting (test code = 37399-8) Whether the patient has symptoms related to condition of interest (test code = 39933-0) Patient was hospitalized because of this condition (test code = 69699-3) Whether the patient was admitted to intensive care unit (ICU) for condition of interest (test code = 99803-6) Whether patient resides in a congrega care setting (test code = 50725-9) [facility] 09:16:00 Test Item Value Reference Range Interpretation Comments Sodium Lvl (test code = Sodium Lvl) 137 135-145 [facility]14[facility]-09 09:16:00 Test Item Value Reference Range Interpretation Comments Potassium Lvl (test code = Potassium 3.4 3.5-5.1 Lvl) [facility]LzhiamtKWOOPZQKUGYP3754-22-44 09:16:00 Test Item Value Reference Range Interpretation Comments Chloride Lvl (test code = Chloride Lvl) 100 95-109 [facility]IuqzaweEAEDZPGSWZBT0717-49-00 09:16:00 Test Item Value Reference Range Interpretation Comments Creatinine Lvl (test code = Creatinine 1.20 0.50-1.40 Lvl) [facility]VlgboxrNLKJZALRRVLJ7610-91-79 09:16:00 Test Item Value Reference Range Interpretation Comments BUN (test code = BUN) 13 7-22 [facility]GaqfjseKWLYBEDPKBMT1954-27-68 09:16:00 Test Item Value Reference Range Interpretation Comments eGFR (test code = eGFR) 50 [facility]CuhdxrmDREAZECQXVAQ4082-83-89 09:16:00 Test Item Value Reference Range Interpretation Comments Calcium Lvl (test code = Calcium Lvl) 9.0 8.5-10.5 [facility] HospitalTrjwrnkWBHEXLEAISSG5620-43-07 09:16:00 Test Item Value Reference Range Interpretation Comments CO2 (test code = CO2) 27 24-32 [facility] HospitalLobsbevQKJTMPPYLMLD2255-63-22 09:16:00 Test Item Value Reference Range Interpretation Comments Glucose Lvl (test code = Glucose Lvl) 93 70-99 [facility] HospitalIsmoqohJGGXCXDHLHGM6772-68-60 09:16:00 Test Item Value Reference Range Interpretation Comments AGAP (test code = AGAP) 13.4 10.0-20.0 [facility]thzvfmIKKZJUYTFQ7818-57-87 09:16:00 Test Item Value Reference Range Interpretation Comments MCH (test code = MCH) 33.7 pg 27.0-31.0 [facility] HospitalOdgdzipAGMLRPHJLX8112-24-89 09:16:00 Test Item Value Reference Range Interpretation Comments MCHC (test code = MCHC) 34.0 32.0-36.0 [facility] HospitalVywzwlvXOYRPRBMZM5925-91-37 09:16:00 Test Item Value Reference Range Interpretation Comments Platelet (test code = Platelet) 206 133-450 [facility] HospitalMmsouwwRVNLZNLMIS2883-69-38 09:16:00 Test Item Value Reference Range Interpretation Comments MPV (test code = MPV) 9.9 7.4-10.4 [facility] HospitalWidfphdGMTJSRZXJM9917-83-29 09:16:00 Test Item Value Reference Range Interpretation Comments RDW (test code = RDW) 18.1 11.5-14.5 [facility] HospitalSlaazwtIIGPJIBZIL8936-03-44 09:16:00 Test Item Value Reference Range Interpretation Comments WBC (test code = WBC) 5.9 3.7-10.4 [facility] HospitalZytvdlgZNYHNAWANL7522-48-56 09:16:00 Test Item Value Reference Range Interpretation Comments RBC (test code = RBC) 2.94 4.20-5.40 [facility] HospitalVditpbuECHQYOCQLC5377-51-77 09:16:00 Test Item Value Reference Range Interpretation Comments Hgb (test code = Hgb) 9.9 12.0-16.0 [facility] HospitalRxaooobBOYMFPQZGI5598-71-91 09:16:00 Test Item Value Reference Range Interpretation Comments Hct (test code = Hct) 29.1 36.0-48.0 [facility] HospitalDyxdfjaXLCAWGSOKP6428-25-18 09:16:00 Test Item Value Reference Range Interpretation Comments MCV (test code = MCV) 99.1 80.0-98.0 [facility] HospitalRfwhiprMKLJUMIMTJMV5439-99-58 09:16:00 Test Item Value Reference Range Interpretation Comments Sodium Lvl (test code = Sodium Lvl) 137 135-145 [facility]HtfkzttZAYEUMQGWAZM6599-48-60 09:16:00 Test Item Value Reference Range Interpretation Comments Potassium Lvl (test code = Potassium 3.4 3.5-5.1 Lvl) [facility] HospitalOchtnliTJRQPAXFSLMH9999-88-48 09:16:00 Test Item Value Reference Range Interpretation Comments Chloride Lvl (test code = Chloride Lvl) 100 95-109 [facility]PvrtmopGJOPCMWMLLPT8733-10-32 09:16:00 Test Item Value Reference Range Interpretation Comments Creatinine Lvl (test code = Creatinine 1.20 0.50-1.40 Lvl) [facility] HospitalXuexxapGXDRVQAKJSFG9546-40-74 09:16:00 Test Item Value Reference Range Interpretation Comments BUN (test code = BUN) 13 7-22 [facility] HospitalSfhdcapCASZUGWRKZTS1151-31-85 09:16:00 Test Item Value Reference Range Interpretation Comments eGFR (test code = eGFR) 50 [facility] HospitalLiqjjgaCDHRJVHSRCGO7466-76-55 09:16:00 Test Item Value Reference Range Interpretation Comments Calcium Lvl (test code = Calcium Lvl) 9.0 8.5-10.5 [facility]XlhrngoENEFICWTNDDY8338-04-38 09:16:00 Test Item Value Reference Range Interpretation Comments CO2 (test code = CO2) 27 24-32 [facility] HospitalSwolhrbSPSIZKDITKJV7024-70-14 09:16:00 Test Item Value Reference Range Interpretation Comments Glucose Lvl (test code = Glucose Lvl) 93 70-99 [facility] HospitalGzhnktpRTSOWJFHGGGR1025-04-68 09:16:00 Test Item Value Reference Range Interpretation Comments AGAP (test code = AGAP) 13.4 10.0-20.0 [facility] HospitalYkhoavrHBTDFYDRKR0455-00-51 09:16:00 Test Item Value Reference Range Interpretation Comments MCH (test code = MCH) 33.7 pg 27.0-31.0 [facility] HospitalGogifkrUQBARSLVMS3428-11-48 09:16:00 Test Item Value Reference Range Interpretation Comments MCHC (test code = MCHC) 34.0 32.0-36.0 [facility] HospitalOvzqnhdAJGEHVOJSF5682-93-35 09:16:00 Test Item Value Reference Range Interpretation Comments Platelet (test code = Platelet) 206 133-450 [facility] HospitalMcnuflhFHZFYDABJY4010-67-19 09:16:00 Test Item Value Reference Range Interpretation Comments MPV (test code = MPV) 9.9 7.4-10.4 [facility] HospitalQowfdqsGNMHZFXRSU6705-62-90 09:16:00 Test Item Value Reference Range Interpretation Comments RDW (test code = RDW) 18.1 11.5-14.5 [facility] HospitalIecslhoMUYXJHHFFR8189-23-05 09:16:00 Test Item Value Reference Range Interpretation Comments WBC (test code = WBC) 5.9 3.7-10.4 [facility] HospitalBkkftudVATMCVCMFK5373-17-53 09:16:00 Test Item Value Reference Range Interpretation Comments RBC (test code = RBC) 2.94 4.20-5.40 [facility] HospitalQiugmroTLVKHBXSVJ8921-62-03 09:16:00 Test Item Value Reference Range Interpretation Comments Hgb (test code = Hgb) 9.9 12.0-16.0 [facility] HospitalPqqmikwSBMUEBQMQV3746-31-91 09:16:00 Test Item Value Reference Range Interpretation Comments Hct (test code = Hct) 29.1 36.0-48.0 [facility] HospitalUsfazrhUZCJIICRIJ5790-56-15 09:16:00 Test Item Value Reference Range Interpretation Comments MCV (test code = MCV) 99.1 80.0-98.0 [facility] HospitalVmlqehjMCKDIPXZJK4950-61-05 23:02:00 Test Item Value Reference Range Interpretation Comments Hgb (test code = Hgb) 9.7 12.0-16.0 [facility] HospitalKssnwlyIUNDRSEUZA9700-46-44 23:02:00 Test Item Value Reference Range Interpretation Comments Hct (test code = Hct) 28.4 36.0-48.0 [facility] HospitalXalpymyDCSDHMSGPV0339-02-70 23:02:00 Test Item Value Reference Range Interpretation Comments Hgb (test code = Hgb) 9.7 12.0-16.0 [facility] HospitalZsezxylQKIETSKBUS8259-49-87 23:02:00 Test Item Value Reference Range Interpretation Comments Hct (test code = Hct) 28.4 36.0-48.0 [facility] HospitalKfcvpwsYIAZDQEAKV8973-58-52 09:46:00 Test Item Value Reference Range Interpretation Comments Lymphocytes (test code = Lymphocytes) 20.0 20.0-40.0 [facility] HospitalKqfzswxDUIGEGAQMM7744-75-36 09:46:00 Test Item Value Reference Range Interpretation Comments MCH (test code = MCH) 33.6 pg 27.0-31.0 [facility] HospitalJeoalgrPRLRZDXFEJ2031-28-22 09:46:00 Test Item Value Reference Range Interpretation Comments MCV (test code = MCV) 100.5 80.0-98.0 [facility] HospitalLvptxfzDPKOMUWYXE8250-08-48 09:46:00 Test Item Value Reference Range Interpretation Comments Hgb (test code = Hgb) 9.0 12.0-16.0 [facility] HospitalNzqmcffRUHAEOVFAY1926-62-07 09:46:00 Test Item Value Reference Range Interpretation Comments Hct (test code = Hct) 26.9 36.0-48.0 [facility] HospitalUzvxjunNGHVDUJZKD3303-50-55 09:46:00 Test Item Value Reference Range Interpretation Comments MCHC (test code = MCHC) 33.5 32.0-36.0 [facility] HospitalQaaeiapNPPUNUGNGF4696-61-40 09:46:00 Test Item Value Reference Range Interpretation Comments RBC (test code = RBC) 2.68 4.20-5.40 [facility] HospitalSgrzimoRBKGDHUEIL7694-76-08 09:46:00 Test Item Value Reference Range Interpretation Comments WBC (test code = WBC) 6.6 3.7-10.4 [facility] HospitalIgzpuqbKQCPFDWIYF2746-85-08 09:46:00 Test Item Value Reference Range Interpretation Comments Platelet (test code = Platelet) 182 133-450 [facility] HospitalLeoeebtYEJBCEUCNF9460-32-55 09:46:00 Test Item Value Reference Range Interpretation Comments MPV (test code = MPV) 10.3 7.4-10.4 [facility] HospitalWfsgfhgKBKMXSBKTT2610-66-26 09:46:00 Test Item Value Reference Range Interpretation Comments RDW (test code = RDW) 18.5 11.5-14.5 [facility] HospitalPvctpnlTSKHLAKBQN3671-28-19 09:46:00 Test Item Value Reference Range Interpretation Comments Monocytes (test code = Monocytes) 6.5 2.0-12.0 [facility] HospitalFifnexgFPRMWKZKMO4678-68-17 09:46:00 Test Item Value Reference Range Interpretation Comments Lymphocytes (test code = Lymphocytes) 20.0 20.0-40.0 [facility] HospitalHyvoaluRQDUDDHJNY2550-39-61 09:46:00 Test Item Value Reference Range Interpretation Comments MCH (test code = MCH) 33.6 pg 27.0-31.0 [facility] HospitalBewrkejCKVBXYHISF5344-99-13 09:46:00 Test Item Value Reference Range Interpretation Comments MCV (test code = MCV) 100.5 80.0-98.0 [facility] HospitalUetmbxqBVKJFRYLVH4113-63-05 09:46:00 Test Item Value Reference Range Interpretation Comments Hgb (test code = Hgb) 9.0 12.0-16.0 [facility] HospitalWisvyycEHAMLIMHIY9067-65-91 09:46:00 Test Item Value Reference Range Interpretation Comments Hct (test code = Hct) 26.9 36.0-48.0 [facility] HospitalFukjwbeRFBVKMHQRV9642-41-36 09:46:00 Test Item Value Reference Range Interpretation Comments MCHC (test code = MCHC) 33.5 32.0-36.0 [facility] HospitalDfcpnyhPJVOHOONJJ2202-07-57 09:46:00 Test Item Value Reference Range Interpretation Comments RBC (test code = RBC) 2.68 4.20-5.40 [facility] HospitalCjbsuzsOCPIGBTYWP9550-38-60 09:46:00 Test Item Value Reference Range Interpretation Comments WBC (test code = WBC) 6.6 3.7-10.4 [facility] HospitalCnsshsqXGVKBDLDTG0263-63-66 09:46:00 Test Item Value Reference Range Interpretation Comments Platelet (test code = Platelet) 182 133-450 [facility] HospitalNlsxokwYMUJHDNKIG6413-27-43 09:46:00 Test Item Value Reference Range Interpretation Comments MPV (test code = MPV) 10.3 7.4-10.4 [facility] HospitalWdcoodyUTPSYTRTDM4935-01-47 09:46:00 Test Item Value Reference Range Interpretation Comments RDW (test code = RDW) 18.5 11.5-14.5 [facility]2019-08-08 09:46:00 Test Item Value Reference Range Interpretation Comments eGFR (test code = eGFR) 50 [facility]2019-08-08 09:46:00 Test Item Value Reference Range Interpretation Comments BUN (test code = BUN) 13 7-22 [facility]2019-08-08 09:46:00 Test Item Value Reference Range Interpretation Comments Creatinine Lvl (test code = Creatinine 1.20 0.50-1.40 Lvl) [facility]2019-08-08 09:46:00 Test Item Value Reference Range Interpretation Comments Sodium Lvl (test code = Sodium Lvl) 143 135-145 [facility]2019-08-08 09:46:00 Test Item Value Reference Range Interpretation Comments Potassium Lvl (test code = Potassium 4.2 3.5-5.1 Lvl) [facility]2019-08-08 09:46:00 Test Item Value Reference Range Interpretation Comments Glucose Lvl (test code = Glucose Lvl) 91 70-99 [facility]2019-08-08 09:46:00 Test Item Value Reference Range Interpretation Comments eGFR (test code = eGFR) 50 [facility]2019-08-08 09:46:00 Test Item Value Reference Range Interpretation Comments Chloride Lvl (test code = Chloride Lvl) 110 95-109 [place] 536959-08-08 09:46:00 Test Item Value Reference Range Interpretation Comments CO2 (test code = CO2) 24 24-32 [facility]2019-08-08 09:46:00 Test Item Value Reference Range Interpretation Comments Calcium Lvl (test code = Calcium Lvl) 8.8 8.5-10.5 [facility]2019-08-08 09:46:00 Test Item Value Reference Range Interpretation Comments AGAP (test code = AGAP) 13.2 10.0-20.0 [facility]2019-08-08 09:46:00 Test Item Value Reference Range Interpretation Comments Phosphorus (test code = Phosphorus) 3.1 2.5-4.5 [facility]2019-08-08 09:46:00 Test Item Value Reference Range Interpretation Comments Magnesium Lvl (test code = Magnesium 2.3 1.8-2.4 Lvl) [facility] HospitalDtdmameTTEGGZVPUB2185-46-29 09:46:00 Test Item Value Reference Range Interpretation Comments Monocytes # (test code = Monocytes #) 0.4 <=0.8 [facility] HospitalNfittqcKOCVSCWRKC2803-62-22 09:46:00 Test Item Value Reference Range Interpretation Comments Eosinophils (test code = Eosinophils) 1.4 <=4.0 [facility] HospitalGmdpbruRNPHSKUBIZ9922-31-44 09:46:00 Test Item Value Reference Range Interpretation Comments Basophils # (test code = Basophils #) 0.1 <=0.2 [facility] HospitalWqwjavlYKBULIORXI0937-83-41 09:46:00 Test Item Value Reference Range Interpretation Comments Eosinophils # (test code = Eosinophils 0.1 <=0.5 #) [facility]2019-08-08 09:46:00 Test Item Value Reference Range Interpretation Comments BUN (test code = BUN) 13 7-22 [facility] HospitalKmdabbkWSVBFMMFMB4018-02-39 09:46:00 Test Item Value Reference Range Interpretation Comments Basophils (test code = Basophils) 0.9 <=1.0 [facility] HospitalPazamjmJEOSPCWYZD5430-50-15 09:46:00 Test Item Value Reference Range Interpretation Comments Neutrophils # (test code = Neutrophils 4.7 1.5-8.1 #) [facility] HospitalZmdrftvGUYPDGFBHT6375-63-86 09:46:00 Test Item Value Reference Range Interpretation Comments Lymphocytes # (test code = Lymphocytes 1.3 1.0-5.5 #) [facility] HospitalXmdfkjxKJXPNFHZPL9431-15-90 09:46:00 Test Item Value Reference Range Interpretation Comments Segs (test code = Segs) 71.2 45.0-75.0 [facility]2019-08-08 09:46:00 Test Item Value Reference Range Interpretation Comments Creatinine Lvl (test code = Creatinine 1.20 0.50-1.40 Lvl) [facility]2019-08-08 09:46:00 Test Item Value Reference Range Interpretation Comments Sodium Lvl (test code = Sodium Lvl) 143 135-145 [facility]2019-08-08 09:46:00 Test Item Value Reference Range Interpretation Comments Potassium Lvl (test code = Potassium 4.2 3.5-5.1 Lvl) [facility]2019-08-08 09:46:00 Test Item Value Reference Range Interpretation Comments Glucose Lvl (test code = Glucose Lvl) 91 70-99 [facility]2019-08-08 09:46:00 Test Item Value Reference Range Interpretation Comments Chloride Lvl (test code = Chloride Lvl) 110 95-109 [facility]2019-08-08 09:46:00 Test Item Value Reference Range Interpretation Comments CO2 (test code = CO2) 24 24-32 [facility]2019-08-08 09:46:00 Test Item Value Reference Range Interpretation Comments Calcium Lvl (test code = Calcium Lvl) 8.8 8.5-10.5 [facility]2019-08-08 09:46:00 Test Item Value Reference Range Interpretation Comments AGAP (test code = AGAP) 13.2 10.0-20.0 [facility]2019-08-08 09:46:00 Test Item Value Reference Range Interpretation Comments Phosphorus (test code = Phosphorus) 3.1 2.5-4.5 [facility]2019-08-08 09:46:00 Test Item Value Reference Range Interpretation Comments Magnesium Lvl (test code = Magnesium 2.3 1.8-2.4 Lvl) [facility]IrfbcpsHAYOFEUMPS6196-13-93 09:46:00 Test Item Value Reference Range Interpretation Comments Monocytes # (test code 0.4 See_Comment [Aut omated message] The = Monocytes #) system which generated this result tra nsmitted reference range : <=0.8. The reference r pooja was not used to int erpret this result as normal/abnormal . [facility] HospitalZbojbvmDIOYAWRADE2763-00-72 09:46:00 Test Item Value Reference Range Interpretation Comments Eosinophils (test code = 1.4 See_Comment [A utomated message] The Eosinophils) system which ge nerated this result tra nsmitted reference range : <=4.0. The reference r pooja was not used to int erpret this result as normal/abnormal . [facility] HospitalFvbtkvsEQVHIBUCBK4968-35-08 09:46:00 Test Item Value Reference Range Interpretation Comments Basophils # (test code 0.1 See_Comment [Aut omated message] The = Basophils #) system which generated this result tra nsmitted reference range : <=0.2. The reference r pooja was not used to int erpret this result as normal/abnormal . [facility] HospitalJairimfWFBDYGGRNH2388-14-28 09:46:00 Test Item Value Reference Range Interpretation Comments Eosinophils # (test code 0.1 See_Comment [A utomated message] The = Eosinophils #) system whic h generated this result tra nsmitted reference range : <=0.5. The reference r pooja was not used to int erpret this result as normal/abnormal . [facility] HospitalCyqyyoeIQENYUJZVX8193-20-42 09:46:00 Test Item Value Reference Range Interpretation Comments Basophils (test code = 0.9 See_Comment [Aut omated message] The Basophils) system which ge nerated this result tra nsmitted reference range : <=1.0. The reference r pooja was not used to int erpret this result as normal/abnormal . [facility] HospitalNoonnpzATVYCSRBKY7016-75-62 09:46:00 Test Item Value Reference Range Interpretation Comments Neutrophils # (test code = Neutrophils 4.7 1.5-8.1 #) [facility] HospitalBissjlrKOWVALRVDJ6997-57-36 09:46:00 Test Item Value Reference Range Interpretation Comments Lymphocytes # (test code = Lymphocytes 1.3 1.0-5.5 #) [facility] HospitalRelgxcsOSUGXSBNHO2807-78-38 09:46:00 Test Item Value Reference Range Interpretation Comments Segs (test code = Segs) 71.2 45.0-75.0 [facility] HospitalFbkptttHAXXXQDIBT2559-04-08 09:46:00 Test Item Value Reference Range Interpretation Comments Monocytes (test code = Monocytes) 6.5 2.0-12.0 [facility]iompvoILTBPSAQBUYW6454-19-89 09:36:00 Test Item Value Reference Range Interpretation Comments Chloride Lvl (test code = Chloride Lvl) 109 95-109 [facility] HospitalNuavfcoMZOMODJMELFT4168-14-09 09:36:00 Test Item Value Reference Range Interpretation Comments Potassium Lvl (test code = Potassium 3.8 3.5-5.1 Lvl) [facility] HospitalWcpvwwhDQDUWZNAYX0296-41-84 09:36:00 Test Item Value Reference Range Interpretation Comments Lymphocytes # (test code = Lymphocytes 1.1 1.0-5.5 #) [facility] HospitalDrvvleeBGLYQFCMJI2902-36-44 09:36:00 Test Item Value Reference Range Interpretation Comments Monocytes # (test code 0.5 See_Comment [Aut omated message] The = Monocytes #) system which generated this result tra nsmitted reference range : <=0.8. The reference r pooja was not used to int erpret this result as normal/abnormal . [facility] HospitalOpjtvamZTNRCJUSFX3958-47-56 09:36:00 Test Item Value Reference Range Interpretation Comments Neutrophils # (test code = Neutrophils 4.5 1.5-8.1 #) [facility] HospitalMyxamccDLZHZWDAJB3146-76-38 09:36:00 Test Item Value Reference Range Interpretation Comments Segs (test code = Segs) 72.5 45.0-75.0 [facility] HospitalNfybpkyGMTYSRRALC0909-17-57 09:36:00 Test Item Value Reference Range Interpretation Comments Lymphocytes (test code = Lymphocytes) 17.9 20.0-40.0 [facility] HospitalKrymtzaLCNMPQZXXQ7771-87-54 09:36:00 Test Item Value Reference Range Interpretation Comments Basophils (test code = 0.4 See_Comment [Aut omated message] The Basophils) system which ge nerated this result tra nsmitted reference range : <=1.0. The reference r pooja was not used to int erpret this result as normal/abnormal . [facility] HospitalTlhtvysOVGMLWXFBT4983-01-97 09:36:00 Test Item Value Reference Range Interpretation Comments Monocytes (test code = Monocytes) 8.6 2.0-12.0 [facility] HospitalHxsibdnHQWBMDPNPF6100-26-94 09:36:00 Test Item Value Reference Range Interpretation Comments Eosinophils (test code = 0.6 See_Comment [A utomated message] The Eosinophils) system which ge nerated this result tra nsmitted reference range : <=4.0. The reference r pooja was not used to int erpret this result as normal/abnormal . [facility] HospitalAvdrgftEQXGHGGONH3825-13-92 09:36:00 Test Item Value Reference Range Interpretation Comments INR (test code = INR) 0.97 1 0.85-1.17 [facility] HospitalKsamsqiWYBHQTIBFP2529-05-09 09:36:00 Test Item Value Reference Range Interpretation Comments PTT (test code = PTT) 32.4 s 22.9-35.8 [facility] HospitalWvtenvbXWZRKMASGG6363-44-34 09:36:00 Test Item Value Reference Range Interpretation Comments PT (test code = PT) 12.7 s 12.0-14.7 [facility] HospitalKakqhfjHHLOLANEOY4958-26-66 09:36:00 Test Item Value Reference Range Interpretation Comments MPV (test code = MPV) 9.6 7.4-10.4 [facility] HospitalVewkqvhHMRSNPNPTY2772-59-44 09:36:00 Test Item Value Reference Range Interpretation Comments Platelet (test code = Platelet) 170 133-450 [facility] HospitalVqtzdqmDGZGVCWXIF4295-97-34 09:36:00 Test Item Value Reference Range Interpretation Comments MCH (test code = MCH) 33.7 pg 27.0-31.0 [facility] HospitalCynhujsKKIPHGKGWU8807-36-39 09:36:00 Test Item Value Reference Range Interpretation Comments MCV (test code = MCV) 99.1 80.0-98.0 [facility] HospitalIebeuxiAWMPSZMLFF6710-91-92 09:36:00 Test Item Value Reference Range Interpretation Comments RDW (test code = RDW) 19.1 11.5-14.5 [facility] CenterSdikbhqWHIPBHBXVU0771-12-07 09:36:00 Test Item Value Reference Range Interpretation Comments MCHC (test code = MCHC) 34.0 32.0-36.0 [facility] CenterJqqzskqUGWCQLIVDQ7876-65-46 09:36:00 Test Item Value Reference Range Interpretation Comments RBC (test code = RBC) 2.62 4.20-5.40 [facility] CenterJekftkyOQDZGMLNEN8236-68-15 09:36:00 Test Item Value Reference Range Interpretation Comments WBC (test code = WBC) 6.2 3.7-10.4 [facility]vtxxSSEQBO4748-09-62 09:36:00 Test Item Value Reference Range Interpretation Comments CHD Risk (test code = CHD Risk) 2.88 1 3.90-5.80 [facility] CenterEkttirfNXDCKQ9748-88-61 09:36:00 Test Item Value Reference Range Interpretation Comments HDL (test code = HDL) 68 [facility] NlanaozEWALVT3362-78-78 09:36:00 Test Item Value Reference Range Interpretation Comments Trig (test code = Trig) 166 [facility] CenterBsfgernRYSBGI4913-19-26 09:36:00 Test Item Value Reference Range Interpretation Comments VLDL (test code = VLDL) 33 1 [facility] CenterEsgvpllCRQIWA2407-01-80 09:36:00 Test Item Value Reference Range Interpretation Comments LDL (Calculated) (test code = LDL 95 (Calculated)) [facility] CenterHwphwehOJMYMP6687-34-41 09:36:00 Test Item Value Reference Range Interpretation Comments Chol (test code = Chol) 196 [facility] CenterannPARATHYROID PUOPSQY9252-84-92 09:36:00 Test Item Value Reference Range Interpretation Comments Ca Ion WB (test code = Ca Ion WB) 1.13 1.05-1.25 [facility] CenterannPARATHYROID OHDDKEH8032-03-64 09:36:00 Test Item Value Reference Range Interpretation Comments Ca Norm WB (test code = Ca Norm WB) 1.11 1.05-1.25 [facility] CenterannCARDIAC AGHZCIN9680-92-69 09:36:00 Test Item Value Reference Range Interpretation Comments Troponin-I (test code = Troponin-I) no gt <=0.40 [facility] CZWSE6288-38-73 09:36:00 Test Item Value Reference Range Interpretation Comments Phosphorus (test code = Phosphorus) 3.0 2.5-4.5 [facility] FMYBK6272-15-39 09:36:00 Test Item Value Reference Range Interpretation Comments Magnesium Lvl (test code = Magnesium 2.5 1.8-2.4 Lvl) [facility] HospitalChcoxcsYOAGKKEYSIDP9090-53-77 09:36:00 Test Item Value Reference Range Interpretation Comments AGAP (test code = AGAP) 11.8 10.0-20.0 [facility] HospitalJhyjejsQTEKFBXRVMJO8167-13-99 09:36:00 Test Item Value Reference Range Interpretation Comments eGFR (test code = eGFR) 50 [facility] HospitalTpplrklGOWLRBRYHKFA4974-27-22 09:36:00 Test Item Value Reference Range Interpretation Comments Creatinine Lvl (test code = Creatinine 1.20 0.50-1.40 Lvl) [facility] HospitalVsvocghQXDLUILZFONT4015-91-44 09:36:00 Test Item Value Reference Range Interpretation Comments BUN (test code = BUN) 16 7-22 [facility] HospitalHqojjplSGQCXEFOIGNF5156-14-79 09:36:00 Test Item Value Reference Range Interpretation Comments Glucose Lvl (test code = Glucose Lvl) 101 70-99 [facility] HospitalLokqhaoKYDHQAAQNBEA1958-23-65 09:36:00 Test Item Value Reference Range Interpretation Comments Sodium Lvl (test code = Sodium Lvl) 142 135-145 [facility] HospitalDzlwjxpMWXNGKMYQWDS6082-46-57 09:36:00 Test Item Value Reference Range Interpretation Comments Calcium Lvl (test code = Calcium Lvl) 8.2 8.5-10.5 [facility] HospitalDavuhofSSEGCWZFBDYP0123-62-97 09:36:00 Test Item Value Reference Range Interpretation Comments CO2 (test code = CO2) 25 24-32 [facility] HospitalDmphdqwREFNTNBXQUQB6904-21-55 09:36:00 Test Item Value Reference Range Interpretation Comments Chloride Lvl (test code = Chloride Lvl) 109 95-109 [facility] HospitalEibwhoyMIPPWWOYXMBE1053-02-35 09:36:00 Test Item Value Reference Range Interpretation Comments Potassium Lvl (test code = Potassium 3.8 3.5-5.1 Lvl) [facility] DallasXtwzfprVPDQOZMUYO9165-22-30 09:36:00 Test Item Value Reference Range Interpretation Comments Lymphocytes # (test code = Lymphocytes 1.1 1.0-5.5 #) [facility] HospitalFwjyjhyMFXYACVQTF1708-44-59 09:36:00 Test Item Value Reference Range Interpretation Comments Monocytes # (test code = Monocytes #) 0.5 <=0.8 [facility] HospitalBjxlpvuRDXYCYZHWU7816-21-12 09:36:00 Test Item Value Reference Range Interpretation Comments Neutrophils # (test code = Neutrophils 4.5 1.5-8.1 #) [facility] HospitalLggjmrnSEZHTQVWNW3940-70-95 09:36:00 Test Item Value Reference Range Interpretation Comments Segs (test code = Segs) 72.5 45.0-75.0 [facility] HospitalYvpsdypGVFTDGWFTA0434-48-14 09:36:00 Test Item Value Reference Range Interpretation Comments Lymphocytes (test code = Lymphocytes) 17.9 20.0-40.0 [facility] HospitalRlgkqtuSTRPAHYUIL9832-70-29 09:36:00 Test Item Value Reference Range Interpretation Comments Basophils (test code = Basophils) 0.4 <=1.0 [facility] HospitalMlrjqhcFVZAFEKMNE9119-02-10 09:36:00 Test Item Value Reference Range Interpretation Comments Monocytes (test code = Monocytes) 8.6 2.0-12.0 [facility] HospitalCrqpgkxURAXUBJBZF2615-02-80 09:36:00 Test Item Value Reference Range Interpretation Comments Eosinophils (test code = Eosinophils) 0.6 <=4.0 [facility] HospitalPxwysjdJCVXJLBZDY9852-48-12 09:36:00 Test Item Value Reference Range Interpretation Comments INR (test code = INR) 0.97 1 0.85-1.17 [facility] HospitalTkexvhtSKQAAYCZXS4417-02-51 09:36:00 Test Item Value Reference Range Interpretation Comments PTT (test code = PTT) 32.4 s 22.9-35.8 [facility] HospitalGkmsrumWOGIKISXDL6295-86-60 09:36:00 Test Item Value Reference Range Interpretation Comments PT (test code = PT) 12.7 s 12.0-14.7 [facility] HospitalJllfyfaVXKBSCXXKX7506-05-91 09:36:00 Test Item Value Reference Range Interpretation Comments MPV (test code = MPV) 9.6 7.4-10.4 [facility] HospitalYjugqxnLTFCLTFFDZ3712-69-83 09:36:00 Test Item Value Reference Range Interpretation Comments Platelet (test code = Platelet) 170 133-450 [facility] HospitalVokqejzJIZWQQDVCY0835-40-05 09:36:00 Test Item Value Reference Range Interpretation Comments MCH (test code = MCH) 33.7 pg 27.0-31.0 [facility] HospitalJoixaqyMUTTVEHEAD5411-57-92 09:36:00 Test Item Value Reference Range Interpretation Comments MCV (test code = MCV) 99.1 80.0-98.0 [facility] HospitalLdecywrPOYSRYCXEJ6983-46-04 09:36:00 Test Item Value Reference Range Interpretation Comments RDW (test code = RDW) 19.1 11.5-14.5 [facility] HospitalSggvdufCVYKLWLAFO0426-45-78 09:36:00 Test Item Value Reference Range Interpretation Comments MCHC (test code = MCHC) 34.0 32.0-36.0 [facility] HospitalZcejqrgHIOEQLODGG9904-93-52 09:36:00 Test Item Value Reference Range Interpretation Comments RBC (test code = RBC) 2.62 4.20-5.40 [facility] HospitalYftbzovIEZIGEGIXX9814-57-18 09:36:00 Test Item Value Reference Range Interpretation Comments WBC (test code = WBC) 6.2 3.7-10.4 [facility]ddptziCDUVEL1103-14-93 09:36:00 Test Item Value Reference Range Interpretation Comments CHD Risk (test code = CHD Risk) 2.88 1 3.90-5.80 [facility] HospitalDwiquikRQQYGC8740-96-41 09:36:00 Test Item Value Reference Range Interpretation Comments HDL (test code = HDL) 68 [facility] HospitalAvgofraPJIBTS7617-35-37 09:36:00 Test Item Value Reference Range Interpretation Comments Trig (test code = Trig) 166 [facility] HospitalQrdzbuxKSWEBK8042-23-84 09:36:00 Test Item Value Reference Range Interpretation Comments VLDL (test code = VLDL) 33 1 [facility] DallasJnvqdmlBZAKNO9385-11-49 09:36:00 Test Item Value Reference Range Interpretation Comments LDL (Calculated) (test code = LDL 95 (Calculated)) [facility]KmeyieyIERKWK7500-03-43 09:36:00 Test Item Value Reference Range Interpretation Comments Chol (test code = Chol) 196 [facility]ATHY[facility] EOMDIXK8242-75-37 09:36:00 Test Item Value Reference Range Interpretation Comments Ca Ion WB (test code = Ca Ion WB) 1.13 1.05-1.25 [facility] HospitalATHYROID ZELIAOF0455-86-54 09:36:00 Test Item Value Reference Range Interpretation Comments Ca Norm WB (test code = Ca Norm WB) 1.11 1.05-1.25 [facility]ARD[facility] JCSAIYA3534-46-95 09:36:00 Test Item Value Reference Range Interpretation Comments Troponin-I (test code no gt See_Comment [Auto mated message] The = Troponin-I) system which g enerated this result transmit ruslan reference range : <=0.40. The reference r pooja was not used to interpr et this result as simeon l/abnormal. [facility] FRLQW3220-42-54 09:36:00 Test Item Value Reference Range Interpretation Comments Phosphorus (test code = Phosphorus) 3.0 2.5-4.5 [facility] YBRNN9734-03-18 09:36:00 Test Item Value Reference Range Interpretation Comments Magnesium Lvl (test code = Magnesium 2.5 1.8-2.4 Lvl) [facility]ManjflbYRMMQSVJSTSU3381-97-01 09:36:00 Test Item Value Reference Range Interpretation Comments AGAP (test code = AGAP) 11.8 10.0-20.0 [facility]IgxddktOLBSUJWHYCQG1019-93-31 09:36:00 Test Item Value Reference Range Interpretation Comments eGFR (test code = eGFR) 50 [facility] HospitalNxtnmxcCIFDFYPPNXNS1481-24-63 09:36:00 Test Item Value Reference Range Interpretation Comments Creatinine Lvl (test code = Creatinine 1.20 0.50-1.40 Lvl) [facility] HospitalFmyqceaURNLEZKEEFZO3532-19-01 09:36:00 Test Item Value Reference Range Interpretation Comments BUN (test code = BUN) 16 7-22 [facility] HospitalKvqjdzqNMVBFNIVBYXO5833-58-93 09:36:00 Test Item Value Reference Range Interpretation Comments Glucose Lvl (test code = Glucose Lvl) 101 70-99 [facility] HospitalGxuxypqWSICTHFBPPPO5933-07-14 09:36:00 Test Item Value Reference Range Interpretation Comments Sodium Lvl (test code = Sodium Lvl) 142 135-145 [facility] HospitalLodzeqxNIOMSCURLIQK7360-92-89 09:36:00 Test Item Value Reference Range Interpretation Comments Calcium Lvl (test code = Calcium Lvl) 8.2 8.5-10.5 [facility] HospitalLchpqpvTHHFUCKCLWBK4877-44-95 09:36:00 Test Item Value Reference Range Interpretation Comments CO2 (test code = CO2) 25 24-32 [facility] [employer] IDUQQYM4343-56-62 16:32:00 Test Item Value Reference Range Interpretation Comments CK MB (test code = CK MB) 2.1 0.5-3.6 [facility] [employer] YWCLTLS3223-45-89 16:32:00 Test Item Value Reference Range Interpretation Comments Total CK (test code = Total CK) 98 12-191 [facility] [employer] BXSUXUQ4145-77-98 16:32:00 Test Item Value Reference Range Interpretation Comments Troponin-I (test code no gt See_Comment [Auto mated message] The = Troponin-I) system which g enerated this result transmit ruslan reference range : <=0.40. The reference r pooja was not used to interpr et this result as simeon l/abnormal. [facility] [employer]2019-08-06 16:32:00 Test Item Value Reference Range Interpretation Comments CK MB Index (test 2.1 1 See_Comment [Automate d message] The code = CK MB Index) system w [facility] generated this result transmit ruslan reference range : <=2.5. The reference range was not used to interpr et this result as simeon l/abnormal. [employer] ZDMBO6930-17-20 16:32:00 Test Item Value Reference Range Interpretation Comments Lactic Acid Lvl (test code = Lactic 0.7 0.5-2.2 Acid Lvl) [facility] [employer]2019-08-06 16:32:00 Test Item Value Reference Range Interpretation Comments CK MB (test code = CK MB) 2.1 0.5-3.6 [facility] [employer]2019-08-06 16:32:00 Test Item Value Reference Range Interpretation Comments Total CK (test code = Total CK) 98 12-191 [facility] [employer] XIGZHNM0388-87-95 16:32:00 Test Item Value Reference Range Interpretation Comments Troponin-I (test code = Troponin-I) no gt <=0.40 [facility] [employer] DJWRMZN3552-37-66 16:32:00 Test Item Value Reference Range Interpretation Comments CK MB Index (test code = CK MB Index) 2.1 1 <=2.5 [facility] [employer] CEVOW8224-24-91 16:32:00 Test Item Value Reference Range Interpretation Comments Lactic Acid Lvl (test code = Lactic 0.7 0.5-2.2 Acid Lvl) [facility] [employer] PIGOYDU2819-45-73 11:44:00 Test Item Value Reference Range Interpretation Comments ABO/Rh (test code = ABO/Rh) O POS [facility] [employer] XBLCGYN5507-21-30 11:44:00 Test Item Value Reference Range Interpretation Comments Antibody Scrn (test Negative (05/18/19 6:44 code = Antibody Scrn) AM) [facility] [employer] BOHMBPO1230-45-19 11:44:00 Test Item Value Reference Range Interpretation Comments ABO/Rh (test code = ABO/Rh) O POS [facility] [employer] JNJIKZB6845-19-41 11:44:00 Test Item Value Reference Range Interpretation Comments Antibody Scrn (test Negative (05/18/19 6:44 code = Antibody Scrn) AM) [facility] CenterQqncigaWZPDHLJBGM0847-76-81 10:24:00 Test Item Value Reference Range Interpretation Comments PTT (test code = PTT) 29.0 s 22.9-35.8 [facility] IvsteqoKQEIPQCRWU0420-30-62 10:24:00 Test Item Value Reference Range Interpretation Comments INR (test code = INR) 0.91 1 0.85-1.17 [facility] PwsiipeQMAESZUXTY7932-35-74 10:24:00 Test Item Value Reference Range Interpretation Comments PT (test code = PT) 12.1 s 12.0-14.7 [facility] MjhdcsnHCEFQNLZWE6955-69-84 10:24:00 Test Item Value Reference Range Interpretation Comments PTT (test code = PTT) 29.0 s 22.9-35.8 [facility] EgtuznhEBEXYXFGZL5870-12-52 10:24:00 Test Item Value Reference Range Interpretation Comments INR (test code = INR) 0.91 1 0.85-1.17 [facility] DoyizsaCXPJDBLMEE9611-96-77 10:24:00 Test Item Value Reference Range Interpretation Comments PT (test code = PT) 12.1 s 12.0-14.7 [facility] CenterBee Networx ([employer])BACTERIAL - MWNWBIGB1340-28-70 10:21:00 Test Item Value Reference Range Interpretation Comments MRSA by PCR (test Negative (05/18/19 5:21 code = MRSA by PCR) AM) [facility] JZNNHAI3274-55-31 10:21:00 Test Item Value Reference Range Interpretation Comments Troponin-I (test code no gt See_Comment [Auto mated message] The = Troponin-I) system which g enerated this result transmit ruslan reference range : <=0.40. The reference r pooja was not used to interpr et this result as simeon l/abnormal. [facility] [id number] 10:21:00 Test Item Value Reference Range Interpretation Comments Lipase Lvl (test code = Lipase Lvl) 88 73-393 [facility] OHXEI9409-72-94 10:21:00 Test Item Value Reference Range Interpretation Comments Phosphorus (test code = Phosphorus) 3.3 2.5-4.5 [facility] KZBFE5724-12-04 10:21:00 Test Item Value Reference Range Interpretation Comments Magnesium Lvl (test code = Magnesium 2.4 1.8-2.4 Lvl) [facility] DLUUO4893-09-15 10:21:00 Test Item Value Reference Range Interpretation Comments Lactic Acid Lvl (test code = Lactic 2.1 0.5-2.2 Acid Lvl) [facility] HospitalCivyagjMQLKMFPECS0200-75-79 10:21:00 Test Item Value Reference Range Interpretation Comments Neutrophils # (test code = Neutrophils 12.1 1.5-8.1 #) [facility] HospitalFgrmpkiSGERJIYSCB6111-60-84 10:21:00 Test Item Value Reference Range Interpretation Comments Lymphocytes # (test code = Lymphocytes 0.6 1.0-5.5 #) [facility] HospitalLqbqkkyRMZPFRNVHY3796-81-35 10:21:00 Test Item Value Reference Range Interpretation Comments Basophils # (test code 0.1 See_Comment [Aut omated message] The = Basophils #) system which generated this result tra nsmitted reference range : <=0.2. The reference r pooja was not used to int erpret this result as normal/abnormal . [facility] HospitalWsylipkXVYFOOMCGX9878-96-18 10:21:00 Test Item Value Reference Range Interpretation Comments Lymphocytes (test code = Lymphocytes) 4.4 20.0-40.0 [facility] HospitalZejzuaqPIWFBWOOHK9423-87-58 10:21:00 Test Item Value Reference Range Interpretation Comments Segs (test code = Segs) 92.4 45.0-75.0 [facility] HospitalAlsyefyRNOVAVUWDE2483-33-97 10:21:00 Test Item Value Reference Range Interpretation Comments Eosinophils (test code = 0.1 See_Comment [A utomated message] The Eosinophils) system which ge nerated this result tra nsmitted reference range : <=4.0. The reference r pooja was not used to int erpret this result as normal/abnormal . [facility] HospitalYsudpinONJLKNQFIL2120-99-75 10:21:00 Test Item Value Reference Range Interpretation Comments Basophils (test code = 0.4 See_Comment [Aut omated message] The Basophils) system which ge nerated this result tra nsmitted reference range : <=1.0. The reference r pooja was not used to int erpret this result as normal/abnormal . [facility] HospitalLafctxeERIJDQHBUC7653-81-34 10:21:00 Test Item Value Reference Range Interpretation Comments Monocytes # (test code 0.3 See_Comment [Aut omated message] The = Monocytes #) system which generated this result tra nsmitted reference range : <=0.8. The reference r pooja was not used to int erpret this result as normal/abnormal . [facility] HospitalUwdorppWJWBNBRDEN7960-14-31 10:21:00 Test Item Value Reference Range Interpretation Comments Monocytes (test code = Monocytes) 2.7 2.0-12.0 [facility] HospitalDgojkxbKLTSADAOWS1341-23-68 10:21:00 Test Item Value Reference Range Interpretation Comments Estimated % Lysis Rapid 0.5 See_Comment [Au tomated message] The (test code = Estimated syste m which generated % Lysis Rapid) this result t ransmitted reference range : <=7.5. The reference r pooja was not used to int erpret this result as normal/abnormal . [facility] H[id number] 10:21:00 Test Item Value Reference Range Interpretation Comments G-value Rapid (test code = G-value 11.0 5.0-11.6 Rapid) [id number] 10:21:00 Test Item Value Reference Range Interpretation Comments Max Amplitude Rapid (test code = Max 69 mm 52-71 Amplitude Rapid) [facility] H[id number] 10:21:00 Test Item Value Reference Range Interpretation Comments ACT (TEG) Rapid (test code = ACT (TEG) 105 s 86-118 Rapid) [facility] H[id number] 10:21:00 Test Item Value Reference Range Interpretation Comments R-time Rapid (test code = R-time 0.6 min 0.4-0.7 Rapid) [id number] 10:21:00 Test Item Value Reference Range Interpretation Comments Split Point Rapid (test code = Split 0.3 min Point Rapid) [facility] C[id number] 10:21:00 Test Item Value Reference Range Interpretation Comments Angle Rapid (test code = Angle 76 degrees 64-80 Rapid) [facility] CenterXrzcyydTZEEDTPKDD9800-30-11 10:21:00 Test Item Value Reference Range Interpretation Comments K-time Rapid (test code = K-time 0.9 min 0.6-2.3 Rapid) [facility] [id number] 10:21:00 Test Item Value Reference Range Interpretation Comments Ca Ion WB (test code = Ca Ion WB) 1.07 1.05-1.25 [facility] CenterannPARATHYROID [id number] 10:21:00 Test Item Value Reference Range Interpretation Comments Ca Norm WB (test code = Ca Norm WB) 1.07 1.05-1.25 [facility] CenterannBACTERIAL - [id number] 10:21:00 Test Item Value Reference Range Interpretation Comments MRSA by PCR (test Negative (05/18/19 5:21 code = MRSA by PCR) AM) [facility]ARDI[facility] [id number] 10:21:00 Test Item Value Reference Range Interpretation Comments Troponin-I (test code = Troponin-I) no gt <=0.40 [facility] CenterBee Networx ([employer])CHEM [id number] 10:21:00 Test Item Value Reference Range Interpretation Comments Lipase Lvl (test code = Lipase Lvl) 88 73-393 [facility] CenterannCHEM [id number] 10:21:00 Test Item Value Reference Range Interpretation Comments Phosphorus (test code = Phosphorus) 3.3 2.5-4.5 [facility]annCHEM [id number] 10:21:00 Test Item Value Reference Range Interpretation Comments Magnesium Lvl (test code = Magnesium 2.4 1.8-2.4 Lvl) [facility]annCHEM [id number] 10:21:00 Test Item Value Reference Range Interpretation Comments Lactic Acid Lvl (test code = Lactic 2.1 0.5-2.2 Acid Lvl) [facility] Hospit[id number] 10:21:00 Test Item Value Reference Range Interpretation Comments Neutrophils # (test code = Neutrophils 12.1 1.5-8.1 #) [facility] Hospit[id number] 10:21:00 Test Item Value Reference Range Interpretation Comments Lymphocytes # (test code = Lymphocytes 0.6 1.0-5.5 #) [facility] Hos[id number] 10:21:00 Test Item Value Reference Range Interpretation Comments Basophils # (test code = Basophils #) 0.1 <=0.2 [facility] Hospit[id number] 10:21:00 Test Item Value Reference Range Interpretation Comments Lymphocytes (test code = Lymphocytes) 4.4 20.0-40.0 [facility] Hos[id number] 10:21:00 Test Item Value Reference Range Interpretation Comments Segs (test code = Segs) 92.4 45.0-75.0 [facility] Hospit[id number] 10:21:00 Test Item Value Reference Range Interpretation Comments Eosinophils (test code = Eosinophils) 0.1 <=4.0 [facility] HospitalYlpjfyaQTYUARCJNM3947-05-03 10:21:00 Test Item Value Reference Range Interpretation Comments Basophils (test code = Basophils) 0.4 <=1.0 [facility] HospitalQiowgjzTRZXVQGIRY7501-76-89 10:21:00 Test Item Value Reference Range Interpretation Comments Monocytes # (test code = Monocytes #) 0.3 <=0.8 [facility] Ho[id number] 10:21:00 Test Item Value Reference Range Interpretation Comments Monocytes (test code = Monocytes) 2.7 2.0-12.0 [facility] Hospit[id number] 10:21:00 Test Item Value Reference Range Interpretation Comments Estimated % Lysis Rapid (test code = 0.5 <=7.5 Estimated % Lysis Rapid) [facility] HospitalGymietdRTIFAFBOHV0827-05-39 10:21:00 Test Item Value Reference Range Interpretation Comments G-value Rapid (test code = G-value 11.0 5.0-11.6 Rapid) [facility] Ho[id number] 10:21:00 Test Item Value Reference Range Interpretation Comments Max Amplitude Rapid (test code = Max 69 mm 52-71 Amplitude Rapid) [facility] Hospit[id number] 10:21:00 Test Item Value Reference Range Interpretation Comments ACT (TEG) Rapid (test code = ACT (TEG) 105 s 86-118 Rapid) [facility] HospitalA[id number] 10:21:00 Test Item Value Reference Range Interpretation Comments R-time Rapid (test code = R-time 0.6 min 0.4-0.7 Rapid) [facility] H[id number] 10:21:00 Test Item Value Reference Range Interpretation Comments Split Point Rapid (test code = Split 0.3 min Point Rapid) [facility] H[id number] 10:21:00 Test Item Value Reference Range Interpretation Comments Angle Rapid (test code = Angle 76 degrees 64-80 Rapid) [facility] H[id number] 10:21:00 Test Item Value Reference Range Interpretation Comments K-time Rapid (test code = K-time 0.9 min 0.6-2.3 Rapid) [facility]2019-08-06 10:21:00 Test Item Value Reference Range Interpretation Comments Ca Ion WB (test code = Ca Ion WB) 1.07 1.05-1.25 [facility]2019-08-06 10:21:00 Test Item Value Reference Range Interpretation Comments Ca Norm WB (test code = Ca Norm WB) 1.07 1.05-1.25 [facility]
[2023-08-04 14:42] LABS: Absolute Lymphocytes (CBC) 2.1 K/uL (0.7-4.9); Hematocrit 38.8 % (36.0-45.0); Lymphocytes % 18.9 % (15.3-44.8); MCV 95.9 fL (80-100); MPV 11.6 fL (7.6-11.3); Platelets 246 thou/uL (152-406); RBC Red Blood Cell Count 4.05 M/uL (3.86-4.86)
[2023-08-04 14:46] LABS: Protime INR 1.15
[2023-08-04 15:16] LABS: Albumin 3.1 g/dL (3.4-5.0); Bilirubin Direct 0.2 mg/dL (0-0.2); Bilirubin Indirect, Calculated 0.3 mg/dL (0.2-0.8); Bilirubin Total 0.5 mg/dL (0.2-1.0); Magnesium 2.2 mg/dL (1.6-2.4); Potassium 4.6 mEq/L (3.5-5.1); Protein, Total 6.3 g/dL (6.4-8.2)
[2023-08-04 15:18] LABS: Troponin High Sensitivity 98.8 pg/mL (<58.9)
--- NOTE | 2023-08-04 16:11 | RAD REPORT ---
EXAM DESCRIPTION: CT - Chest For Pe Angio - 08/04/2023 3:38 pm CLINICAL HISTORY: sob COMPARISON: None. TECHNIQUE: Dynamically enhanced axial 3 mm thick images of the chest were obtained during administra tion of 100 mL Isovue 370 IV contrast. Coronal and oblique reconstruction images were generated and r eviewed. Exam utilizes a protocol for optimal evaluation of pulmonary arterial tree. Maximum intensity projections 3D imaging was utilized All CT scans are performed using dose optimization technique as appropriate and may include automated exposure control or mA/KV adjustment according to patient size. FINDINGS: A pulmonary embolus is not seen. A thoracic aortic aneurysm is not noted. Small to moderate right and small left pleural effusions Phxt-wl-gbtbdcis bilateral pulmonary opacities probably pulmonary edema Cardiomegaly IMPRESSION: Negative for a pulmonary embolism. CHF
--- NOTE | 2023-08-04 16:12 | RAD REPORT ---
EXAM DESCRIPTION: Deuce Single View08/04/2023 3:16 pm CLINICAL HISTORY: Chest pain COMPARISON: 2021 FINDINGS: Small to moderate right and small left pleural effusions Mild bilateral pulmonary opacities Cardiomegaly Findings likely indicate CHF
--- NOTE | 2023-08-04 16:25 | ER ---
Nurse's Notes [facility] Name: Radha Khan Age: 63 yrs Sex: Female : 1960 Arrival Date: 08/04/2023 Time: 14:06 Bed 17 Private MD: Diagnosis: Acute on chronic combined systolic (congestive) and diastolic (congestive) heart failure;Elevated Troponin level;Elevated LFTs Presentation: 08/04 14:13 Chief complaint: Patient states: SOB , orthopnea since , hx of CHF. iw Coronavirus screen: At this time, the client does not indicate any symptoms associated with coronavirus-19. Ebola Screen: Patient negative for fever greater than or equal to 101.5 degrees Fahrenheit, and additional compatible Ebola Virus Disease symptoms Patient denies exposure to infectious person. Patient denies travel to an Ebola-affected area in the 21 days before illness onset. No symptoms or risks identified at this time. Initial Sepsis Screen: Does the patient meet any 2 criteria? No. Patient's initial sepsis screen is negative. Does the patient have a suspected source of infection? No. Patient's initial sepsis screen is negative. Risk Assessment: Do you want to hurt yourself or someone else? Patient reports no desire to harm self or others. Onset of symptoms was July 31, 2023. 14:13 Method Of Arrival: Ambulatory iw 14:13 Acuity: [place] 3 iw Triage Assessment: 22:26 Respiratory: jw7 Historical: - Allergies: 14:14 Lisinopril; iw 14:14 SHELLFISH; iw 14:14 Sulfa (Sulfonamide Antibiotics); iw - PMHx: 14:14 CHF; CVA; Hypertensive disorder; TBI; iw - PSHx: 14:14 abdominoplasty; Appendectomy; bladder suspension; carpal tunnel; Tonsillectomy; tubal iw ligation; - Immunization history:: Adult Immunizations up to date. - Social history:: Smoking status: unknown. Screenin:35 [facility] ED Fall Risk Assessment (Adult) Score/Fall Risk Level 0 - 2 = Low Risk. Abuse iw screen: Denies threats or abuse. Denies injuries from another. Nutritional screening: No deficits noted. Tuberculosis screening: No symptoms or risk factors identified. Assessment: 14:15 General: Appears in no apparent distress. Behavior is calm, cooperative. Neuro: Level iw of Consciousness is awake, alert, obeys commands, Oriented to person, place, time, situation, Moves all extremities. Full function. Cardiovascular: Patient's skin is warm and dry. Rhythm is regular. Respiratory: Reports shortness of breath at rest on exertion Airway is patent Respiratory effort is even, Breath sounds are diminished bilaterally. GI: Abdomen is flat, non-distended. Derm: Skin is intact, is fragile. Musculoskeletal: Range of motion: intact in all extremities. 15:46 Reassessment: Patient appears in no apparent distress at this time. Patient and/or iw family updated on plan of care and expected duration. Pain level reassessed. Patient is alert, oriented x 3, equal unlabored respirations, skin warm/dry/pink. 16:27 Reassessment: Patient appears in no apparent distress at this time. Patient and/or iw family updated on plan of care and expected duration. Pain level reassessed. Patient is alert, oriented x 3, equal unlabored respirations, skin warm/dry/pink. Pain: Denies pain. 20:00 Neuro: Gaitan Agitation-Sedation Scale (RASS): 0 - Alert and Calm Level of jw7 Consciousness is awake, alert, obeys commands, Oriented to person, place, time, situation. Cardiovascular: Capillary refill < 3 seconds Clubbing of nail beds is absent JVD is absent Patient's skin is warm and dry. Rhythm is regular. Respiratory: Airway is patent Trachea midline Respiratory effort is even, unlabored, Respiratory pattern is regular, symmetrical. GI: No deficits noted. No signs and/or symptoms were reported involving the gastrointestinal system. : No deficits noted. No signs and/or symptoms were reported regarding the genitourinary system. EENT: No deficits noted. No signs and/or symptoms were reported regarding the EENT system. Derm: Skin is intact, is fragile, Skin is dry, Skin is normal, Skin temperature is warm. Musculoskeletal: Circulation, motion, and sensation intact. Range of motion: intact in all extremities. 22:00 General: Appears in no apparent distress. comfortable, Behavior is calm, cooperative. jw7 Pain: Complains of pain in head Pain does not radiate. Pain currently is 6 out of 10 on a pain scale. Quality of pain is described as pressure, Pain began suddenly, Is continuous, Noted to be agitated. 22:45 General: attempted to call report, nurse will call back. jw7 23:00 General: Report given to CHRISTA Jones . jw7 Vital Signs: 14:13 BP 139 / 104; Pulse 92; Resp 19; Temp 97.6; Pulse Ox 96% on R/A; iw 16:27 BP 155 / 101; Pulse 85; Resp 19; Pulse Ox 96% on R/A; iw 22:15 BP 141 / 90; Pulse 84; Resp 14 S; Pulse Ox 97% on R/A; jw7 ED Course: 14:09 Patient arrived in ED. mg5 14:12 Olga Wayne FNP is [facility]. jh7 14:12 Rob Lepe MD is Attending Physician. 7 14:14 Triage completed. iw 14:14 Arm band placed on. iw 14:29 Initial lab(s) drawn, by me, sent to lab. Inserted saline lock: 22 gauge in left iw forearm, using aseptic technique. Blood collected. 14:55 Micki Tamez RN is Primary Nurse. iw 15:18 XRAY Chest (1 view) In Process Unspecified. EDMS 15:33 CT Chest For PE Angio In Process Unspecified. EDMS 15:35 Patient has correct armband on for positive identification. iw 15:46 No provider procedures requiring assistance completed. iw 16:23 [place] is Hospitalizing Provider. 7 16:29 Provided Education on: admission. iw 22:26 Patient admitted, IV remains in place. jw7 Administered Medications: 16:26 Drug: Furosemide IVP 40 mg IVP once; give over 2 minutes Route: IVP; Site: left forearm;iw 22:27 Follow up: Response: No adverse reaction jw7 Medication: 15:35 VIS not applicable for this client. iw Output: 17:58 Urine: 800ml (Voided); Total: 800ml. iw Outcome: 16:25 Decision to Hospitalize by Provider. 7 22:26 Admitted to Tele accompanied by nurse, via wheelchair, room 410, jw7 22:26 Condition: stable 22:26 Instructed on the need for admit, Demonstrated understanding of instructions, 23:28 Patient left the ED. jw7 Signatures: Dispatcher [employer] EDMicki Stern RN RN iw Yana Carmona RN RN jw7 Olga Wayne FNP ASSISTANT TENNIS COACH Swetha Diaz mg5
--- NOTE | 2023-08-04 16:25 | EDPHYS ---
Physician Documentation [facility] Name: Radha Khan Age: 63 yrs Sex: Female : 1960 Arrival Date: 08/04/2023 Time: 14:06 Bed 17 Private MD: ED Physician Rob Lepe HPI: 08/04 14:13 This 63 yrs old Female presents to ER via Ambulatory with complaints of Shortness Of jh7 Breath, Feet Swelling. 14:13 The patient has shortness of breath at rest, with light activity. Onset: The jh7 symptoms/episode began/occurred 4 day(s) ago, and became worse last night. Duration: The symptoms. Associated signs and symptoms: Pertinent positives: edema. 63-year-old female presents to the ER for progressive shortness of breath starting on . She reports that she is not on any heart medication at this time. She denies having a PCP or development intern. States that she is unable to lay flat and that she has noticed that her feet and ankles are swollen. History of CHF.. Historical: - Allergies: 14:14 Lisinopril; iw 14:14 SHELLFISH; iw 14:14 Sulfa (Sulfonamide Antibiotics); iw - PMHx: 14:14 CHF; CVA; Hypertensive disorder; TBI; iw - PSHx: 14:14 abdominoplasty; Appendectomy; bladder suspension; carpal tunnel; Tonsillectomy; tubal iw ligation; - Immunization history:: Adult Immunizations up to date. - Social history:: Smoking status: unknown. ROS: 14:13 Constitutional: Negative for fever, chills, and weight loss, Eyes: Negative for injury, jh7 pain, redness, and discharge, ENT: Negative for injury, pain, and discharge, Neck: Negative for injury, pain, and swelling, Abdomen/GI: Negative for abdominal pain, nausea, vomiting, diarrhea, and constipation, Back: Negative for injury and pain, MS/Extremity: Negative for injury and deformity, Skin: Negative for injury, rash, and discoloration, Neuro: Negative for headache, weakness, numbness, tingling, and seizure, 14:13 Cardiovascular: Positive for edema, Negative for chest pain, 14:13 Respiratory: Positive for orthopnea, shortness of breath, at rest. 14:13 All other systems are negative, Exam: 14:13 Constitutional: This is a well developed, well nourished patient who is awake, alert, jh7 and in no acute distress. Head/Face: Normocephalic, atraumatic. Eyes: Pupils equal round and reactive to light, extra-ocular motions intact. Lids and lashes normal. Conjunctiva and sclera are non-icteric and not injected. Cornea within normal limits. Periorbital areas with no swelling, redness, or edema. Neck: Trachea midline, no thyromegaly or masses palpated, and no cervical lymphadenopathy. Supple, full range of motion without nuchal rigidity, or vertebral point tenderness. No Meningismus. Abdomen/GI: Soft, non-tender, with normal bowel sounds. No distension or tympany. No guarding or rebound. No evidence of tenderness throughout. Back: No spinal tenderness. No costovertebral tenderness. Full range of motion. Skin: Warm, dry with normal turgor. Normal color with no rashes, no lesions, and no evidence of cellulitis. MS/ Extremity: Pulses equal, no cyanosis. Neurovascular intact. Full, normal range of motion. Neuro: Awake and alert, GCS 15, oriented to person, place, time, and situation. . Motor strength 5/5 in all extremities. Sensory grossly intact. Normal gait. 14:13 Cardiovascular: Rate: normal, Rhythm: regular, Heart sounds: normal, Edema: 2+ edema to level of left foot, left toes, right foot and right toes, 14:13 Respiratory: the patient does not display signs of respiratory distress, Respirations: normal, Breath sounds: decreased breath sounds, that are mild, are scattered, Vital Signs: 14:13 BP 139 / 104; Pulse 92; Resp 19; Temp 97.6; Pulse Ox 96% on R/A; iw 16:27 BP 155 / 101; Pulse 85; Resp 19; Pulse Ox 96% on R/A; iw 22:15 BP 141 / 90; Pulse 84; Resp 14 S; Pulse Ox 97% on R/A; jw7 MDM: 14:12 Patient medically screened. [facility] 16:30 Differential diagnosis: Bronchitis CHF exacerbation, Chronic Obstructive Pulmonary jh7 Disease Myocardial Infarction pneumonia, pulmonary edema. Data interpreted: Pulse oximetry: is 96 %. Interpretation: normal. Data reviewed: vital signs, nurses notes, lab test result(s), EKG, radiologic studies, CT scan, plain films. Consideration of Admission/Observation Patient was admitted/placed on observation. Management of patient was discussed with the following: Hospitalist: JESSIE Narvaez for Dr. Dailey. I considered the following discharge prescriptions or medication management in the emergency department Medications were administered in the Emergency Department. See MAR. Care significantly affected by the following chronic conditions: Hypertension, Congestive Heart Failure. Counseling: I had a detailed discussion with the patient and/or guardian regarding the historical points, exam findings, and any diagnostic results supporting the discharge/admit diagnosis, the need for further work-up and treatment in the hospital. Response to treatment: the patient's symptoms have mildly improved after treatment. 08/04 14:19 Order name: Basic Metabolic Panel; Complete Time: 15:22 [facility] 08/04 14:19 Order name: CBC with Diff; Complete Time: 15:16 [facility] 08/04 14:19 Order name: D-Dimer; Complete Time: 15:16 [facility] 08/04 14:19 Order name: LFT's; Complete Time: 15:22 [facility] 08/04 14:19 Order name: Magnesium; Complete Time: 15:22 [facility] 08/04 14:19 Order name: NT PRO-BNP; Complete Time: 15:22 [facility] 08/04 14:19 Order name: PT-INR; Complete Time: 15:16 [facility] 08/04 14:19 Order name: Troponin HS; Complete Time: 15:22 [facility] 08/04 19:57 Order name: Troponin High Sensitivity; Complete Time: 08:44 [facility] 08/04 19:57 Order name: Lipid Profile; Complete Time: 08:44 [facility] 08/04 22:06 Order name: Troponin High Sensitivity; Complete Time: 08:44 [facility] 08/04 22:06 Order name: Lipid Profile; Complete Time: 08:44 [facility] 08/04 14:19 Order name: XRAY Chest (1 view); Complete Time: 16:13 [facility] 08/04 15:16 Order name: CT Chest For PE Angio; Complete Time: 16:13 [facility] 08/04 14:19 Order name: EKG; Complete Time: 14:20 [facility] 08/04 14:19 Order name: Cardiac monitoring; Complete Time: 15:37 [facility] 08/04 14:19 Order name: EKG - Nurse/Tech; Complete Time: 14:55 [facility] 08/04 14:19 Order name: IV Saline Lock; Complete Time: 14:29 [facility] 08/04 14:19 Order name: Labs collected and sent; Complete Time: 14:29 [facility] 08/04 14:19 Order name: O2 Per Protocol; Complete Time: 15:37 [facility] 08/04 14:19 Order name: O2 Sat Monitoring; Complete Time: 15:37 [facility] EC:44 Rate is 87 beats/min. Rhythm is regular. QRS Eleva is Normal. LA interval is normal at [facility] 162 msec. QRS interval is prolonged at 136 msec. QT interval is normal at 420 msec. Clinical impression: Normal sinus rhythm with left bundle branch block. Administered Medications: 16:26 Drug: Furosemide IVP 40 mg IVP once; give over 2 minutes Route: IVP; Site: left forearm; 22:27 Follow up: Response: No adverse reaction [facility] Disposition Summary: 08/04/23 16:25 Hospitalization Ordered Notes: Hospitalization Status: Inpatient Admission [facility] Provider: [place] [facility] Location: Telemetry/MedSurg (Inpatient) [facility] Condition: Stable [facility] Problem: new [facility] Symptoms: are unchanged [facility] Bed/Room Type: Standard [facility] Room Assignment: [facility](08/04/23 22:19) Diagnosis - Acute on chronic combined systolic (congestive) and diastolic (congestive) heart [facility] failure - Elevated Troponin level [facility] - Elevated LFTs [facility] Forms: - Medication Reconciliation Form [facility] - SBAR form [facility] - Leadership Thank You Letter [facility] Addendum: 08/07/2023 20:03 Co-signature as Attending Physician, Rob Lepe MD I reviewed the patient's care r n provided by the Advanced Practice Provider and agree with the diagnosis and treatment plan. Signatures: Dispatcher [employer] LINDADE Randa Perkins RN RN mw Williams, Irene, RN RN iw Nieto, Roman, MD MD rn Waits, Jodi, RN RN [facility] Olga Wayne, OCCUPATIONAL THERAPY DEPARTMENT CHAIR OCCUPATIONAL THERAPY DEPARTMENT CHAIR [facility] Corrections: (The following items were deleted from the chart) 08/04 22:19 16:25 [facility] mw
[2023-08-04] MEDS ORDERED: FUROSEMIDE 40 MG/4 ML VIAL ONE (16:33)
--- NOTE | 2023-08-04 17:22 | P.HP ---
Certification for Inpatient With expected LOS: <2 Midnights Patient will require the following post-hospital care: None Practitioner: I am a practitioner with admitting privileges, knowledge of patient current condition, hospital course, and medical plan of care. Services: Services provided to patient in accordance with Admission requirements found in Title 42 Section 412.3 of the Code of Federal Regulations Patient History Date of Service: 08/04/23 Primary Care Provider: Dr. Ashlie Vickers Reason for admission: Increasing Shortness of Breath History of Present Illness: Ms. Khan 63-year-old female with a history of CHF, CVA, hypertensive disorder, traumatic brain injury, presented to the emergency room with a complaint of worsening shortness of breath. Patient reports her shortness of breath got worse today. Patient denies chest pain, fever chills or weight loss. Patient admit swelling in the feet for few weeks. Patient reports that she discontinued water pills since January 2023. Patient denies abdominal pain, nausea, vomiting. ED course vital signs blood pressure 139/104, pulse 92, respiration 19, temperature 97.6, pulse ox 96% on room air. EKG is in normal sinus rhythm. QRS axis is normal, PA interval is normal at 162, QRS interval is prolonged at 136 MS EDC. QT interval is normal. Initial laboratory reports significant for elevated D-dimer 1965, elevated BNP 57,000 283, low sodium 134, elevated renal profile BUN 25, creatinine 1.44, GFR 41, elevated hepatic profile AST 90, ALT 125, elevated troponin I 98.8. Chest x-ray shows CHF and small pleural effusion on the left side, small to moderate pleural effusion on the right side. Admitting the patient with a diagnosis of acute on chronic combined systolic and diastolic heart failure, elevated troponin level, elevated liver enzymes. Allergies lisinopril Allergy (Verified 08/26/22 12:22) Anaphylaxis tramadol Allergy (Verified 08/26/22 12:21) Itching Sulfa (Sulfonamide Antibiotics) Adverse Reaction (Unknown, Verified 08/26/22 12:21) unknown Home medications list reviewed: Yes Home Medications: Atorvastatin Calcium [Lipitor] 20 mg PO BEDTIME 08/26/22 Butalb/Acetaminophen/Caffeine [Lvhvkg-Wunoytjd-Lnhd 50-325-40] 1 each PO BID 08/26/22 Calcium Carb/Mag Ox/Zinc Sulf [Sma-Abf-Tysr 334-134-5 mg Tab] 1 tab PO TID 08/26/22 Cholecalciferol (Vitamin D3) [D3-50] 1,250 mcg PO DAILY 08/26/22 Diazepam [Valium] 5 mg PO BEDTIME 08/26/22 Diclofenac Sodium [Voltaren] 75 mg PO DAILY 08/26/22 Erenumab-Aooe [Aimovig Autoinjector] 1 dose SQ SEECOM 08/26/22 Folic Acid/Vit B Complex and C [Super B Complex-Vit C Caplet] 1 tab PO DAILY 08/26/22 Hydralazine HCl [Apresoline] 50 mg PO BID 08/26/22 Hydrocodone Bit/Acetaminophen [Hydrocodon-Acetaminophn 10-325] 1 tab PO DAILY 08/26/22 Iron 18 mg PO DAILY 08/26/22 Omeprazole [Prilosec] 40 mg PO DAILY 08/26/22 Potassium Chloride 10 meq PO DAILY 08/26/22 Sertraline HCl 100 mg PO DAILY 08/26/22 Topiramate [Topamax] 100 mg PO BID 08/26/22 Valsartan [Diovan] 160 mg PO DAILY 08/26/22 - Past Medical/Surgical History Has patient received pneumonia vaccine in the past: No -: Congestive Heart Failure -: CVA -: Hypertension -: TBI -: Abdominoplasty -: Appendectomy -: Bladder suspension -: Carpal tunnel -: Tonsillectomy -: Tubal ligation Review of Systems 10-point ROS is otherwise unremarkable Eyes: Unremarkable ENT: Unremarkable Respiratory: Cough, SOB with Excertion Cardiovascular: Edema (Bilateral lower extremity edema) Gastrointestinal: Unremarkable Musculoskeletal: Unremarkable Integumentary: Unremarkable Physical Examination - Physical Exam General: Alert, Oriented x3 HEENT: Atraumatic, Normocephalic, PERRLA Neck: 2+ carotid pulse no bruit Respiratory: Clear to auscultation bilaterally, Diminished (Basis) Cardiovascular: No edema, Normal pulses, Regular rate/rhythm, Normal S1 S2 Capillary refill: <2 Seconds Gastrointestinal: Normal bowel sounds, Hypoactive, Soft and benign, W/out succussion splash, W/out hepatosplenomegaly, W/out hepatomegaly, W/out splenomegaly, No ascites, No tenderness, No masses Musculoskeletal: No clubbing, No swelling, No contractures, No erythema, No tenderness, No warmth Neurological: Normal gait, Normal speech, Normal strength at 5/5 x4 extr, Normal tone - Studies Laboratory Data (last 24 hrs) 08/04/23 08/04/23 08/04/23 14:26 14:26 14:26 WBC 10.90 Hgb 13.2 Hct 38.8 Plt Count 246 PT 12.6 H INR 1.15 Sodium 134 L Potassium 4.6 BUN 25 H Creatinine 1.44 H Glucose 126 H Magnesium 2.2 Total Bilirubin 0.5 AST 90 H ALT 125 H Alkaline Phosphatase 193 H Assessment and Plan - Plan Diagnosis and plan Assessment Acute on Chronic Combined systolic and diastolic heart failure Acute Pleural effusion NSTEMI, Acute Elevated troponin level Transiminitis Acute Renal impairment Hypertension Plan Acute on ChronicCombined systolic and diastolic heart failure Pleural effusion Elevated troponin level NSTEMI * Acute on chronic CHF, patient reports that she stopped diuretics since January 2023. * Increased shortness of breath over the last 2 weeks * elevated D-dimer 1964, elevated BNP 57 283, informed. * Admit the patient in telemetry, Consult cardiology Dr. Tang * Trend troponin, EKG, echo cardiogram,NPO after MN * Repeat BNP and a D-dimer in Am * Monitor heart rate and blood pressure closely * Aspirin, nitroglycerin, morphine as needed * Lasix 40mg IV BID * Daily weight and strict I&O Transiminitis * Repeat liver enzymes in the morning we will continue to monitor * Non Alcoholic Renal impairment * Acute kidney injury likely related to pre-renal (CHF), unknown baseline. BUN 25, CREA 1.44, GFR 41 * Will continue to monitor * Avoid NSAIDs, over the Counter medications without checking with the medical practitioner Hypertension * Chronic, controlled * Resume home medications CODE STATUS Full code DVT prophylaxis Heparin Diet Cardiac Discharge Plan: Home Plan to discharge in: 48 Hours - Advance Directives Does patient have a Living Will: No Does patient have a Durable POA for Healthcare: No - Code Status/Comfort Care Code Status Assessed: Yes (Full code) Code Status: Full Code Critical Care: No Time Spent Managing Pts Care (In Minutes): 55 (Minutes)
[2023-08-04] MEDS ORDERED: MORPHINE 4 MG/ML SYR IV PRN (18:04)
[2023-08-04] MEDS ORDERED: ONDANSETRON 4 MG/2 ML VIAL IV PRN (18:04)
[2023-08-04] MEDS: IPRATROPIUM BROM 0.5MG/2.5ML NEB SCH ×2 (18:04→20:00)
[2023-08-04] MEDS ORDERED: ACETAMINOPHEN 500 MG TAB PO PRN ×3 (18:04→20:50)
[2023-08-04] MEDS ORDERED: ASPIRIN 325 MG TAB PO ONE (18:15)
[2023-08-04 19:57] LABS: Troponin High Sensitivity 100.7 pg/mL (<58.9)
[2023-08-04] MEDS ORDERED: NITROGLYCERIN 0.4 MG/TAB SL PRN (20:50)
[2023-08-04] MEDS ORDERED: ALBUTEROL 2.5 MG/3 ML NEB SOL NEB PRN (20:50)
[2023-08-04] MEDS ORDERED: IPRATROPIUM BROM 0.5MG/2.5ML NEB PRN (20:50)
[2023-08-04] MEDS ORDERED: HYDROCODONE/APAP 5/325 MG TAB PO PRN (20:50)
[2023-08-04] MEDS ORDERED: HYDROCODONE/APAP 5/325 MG TAB ONE (23:05)
[2023-08-05] MEDS: HEPARIN 5000 UNIT/ML 1 ML VIAL SQ SCH ×3 (00:22→16:58)
[2023-08-05] MEDS: IPRATROPIUM BROM 0.5MG/2.5ML NEB SCH ×6 (00:54→19:30)
[2023-08-05] MEDS: ALBUTEROL 2.5 MG/3 ML NEB SOL NEB PRN ×2 (00:54→19:30)
[2023-08-05] MEDS ORDERED: HEPARIN 5000 UNIT/ML 1 ML VIAL SQ SCH (01:00)
[2023-08-05 06:21] LABS: Absolute Lymphocytes (CBC) 2.1 K/uL (0.7-4.9); Hematocrit 37.9 % (36.0-45.0); Lymphocytes % 23.6 % (15.3-44.8); MCV 95.7 fL (80-100); MPV 11.7 fL (7.6-11.3); Platelets 212 thou/uL (152-406); RBC Red Blood Cell Count 3.96 M/uL (3.86-4.86)
[2023-08-05 06:57] LABS: Potassium 3.4 mEq/L (3.5-5.1)
[2023-08-05 06:59] LABS: Troponin High Sensitivity 104.3 pg/mL (<58.9)
--- NOTE | 2023-08-05 08:07 | P.PN ---
Subjective Date of Service: 08/05/23 Primary Care Provider: Dr. Sherley Kellogg Chief Complaint: Increasing Shortness of Breath Subjective: No new changes, Improving, Doing well Date of admission: 08/04/23 Reason for admission: Increasing Shortness of Breath History of Present Illness: Ms. Khan 63-year-old female with a history of CHF, CVA, hypertensive disorder, traumatic brain injury, presented to the emergency room with a complaint of worsening shortness of breath. Patient reports her shortness of breath got worse today. Patient denies chest pain, fever chills or weight loss. Patient admit swelling in the feet for few weeks. Patient reports that she discontinued water pills since January 2023. Patient denies abdominal pain, nausea, vomiting. ED course vital signs blood pressure 139/104, pulse 92, respiration 19, temperature 97.6, pulse ox 96% on room air. EKG is in normal sinus rhythm. QRS axis is normal, ND interval is normal at 162, QRS interval is prolonged at 136 MS EDC. QT interval is normal. Initial laboratory reports significant for elevated D-dimer 1965, elevated BNP 57,000 283, low sodium 134, elevated renal profile BUN 25, creatinine 1.44, GFR 41, elevated hepatic profile AST 90, ALT 125, elevated troponin I 98.8. Chest x-ray shows CHF and small pleural effusion on the left side, small to moderate pleural effusion on the right side. Admitting the patient with a diagnosis of acute on chronic combined systolic and diastolic heart failure, elevated troponin level, elevated liver enzymes. 08/05/2023 Patient is alert and oriented x3 Feeling much better Denies any shortness of breath at this time Patient walking to the restroom by herself without assistance Denies pain or any discomfort <Kvng Abad - Last Filed: 08/05/23 18:05> Date of Service: 08/05/23 Primary Care Provider: <Hardik Lepe - Last Filed: 08/05/23 22:07> Review of Systems 10-point ROS is otherwise unremarkable <Kvng Abad - Last Filed: 08/05/23 18:05> Physical Examination - Vital Signs Temperature: 97.1 F Blood Pressure: 140/94 Pulse: 74 Respirations: 18 Pulse Ox (%): 93 - Studies Laboratory Data (last 24 hrs) 1008/04/23 08/04/23 14:26 14:26 14:26 WBC 10.90 Hgb 13.2 Hct 38.8 Plt Count 246 PT 12.6 H INR 1.15 Sodium 134 L Potassium 4.6 BUN 25 H Creatinine 1.44 H Glucose 126 H Magnesium 2.2 Total Bilirubin 0.5 AST 90 H ALT 125 H Alkaline Phosphatase 193 H <Kvng Abad - Last Filed: 08/05/23 18:05> Assessment And Plan - Plan Physical Examination - Physical Exam General: Alert, Oriented x3 HEENT: Atraumatic, Normocephalic, PERRLA Neck: 2+ carotid pulse no bruit Respiratory: Clear to auscultation bilaterally, Diminished (Basis) Cardiovascular: No edema, Normal pulses, Regular rate/rhythm, Normal S1 S2 Capillary refill: <2 Seconds Gastrointestinal: Normal bowel sounds, Hypoactive, Soft and benign, W/out succussion splash, W/out hepatosplenomegaly, W/out hepatomegaly, W/out splenomegaly, No ascites, No tenderness, No masses Musculoskeletal: No clubbing, No swelling, No contractures, No erythema, No tenderness, No warmth Neurological: Normal gait, Normal speech, Normal strength at 5/5 x4 extr, Normal tone Assessment Acute on Chronic Combined systolic and diastolic heart failure Acute Pleural effusion NSTEMI, Acute Elevated troponin level Transiminitis Acute Renal impairment Hypertension Plan Acute on ChronicCombined systolic and diastolic heart failure Pleural effusion Elevated troponin level NSTEMI * Acute,on chronic CHF, patient reports that she stopped diuretics since January 2023. Improving. * Increased shortness of breath over the last 2 weeks * elevated troponin I 104.3, elevated BNP 01209 * Consult cardiology Dr. Tang * Trend troponin, EKG, echo cardiogram,NPO after MN * Repeat BNP and a D-dimer in Am * Monitor heart rate and blood pressure closely * Aspirin, nitroglycerin, morphine as needed * Lasix 40mg IV BID * Daily weight and strict I&O Transiminitis * Repeat liver enzymes in the morning we will continue to monitor * Non Alcoholic Renal impairment * Acute kidney injury likely related to pre-renal (CHF), unknown baseline. BUN 29 CREA 1.30, GFR 47 * Will continue to monitor * Avoid NSAIDs, over the Counter medications without checking with the medical practitioner Hypertension * Chronic, controlled * Resume home medications CODE STATUS Full code DVT prophylaxis Heparin Diet Cardiac Plan to discharge in: 24 Hours - Code Status/Comfort Care Code Status Assessed: Yes (Full code) Code Status: Full Code Critical Care: No Time Spent Managing PTS Care (In Minutes): 35 (Minutes) <Kvng Abad - Last Filed: 08/05/23 18:05> Physician Review: Patient Assessed, Agree with Above Assessment and Plan <Hardik Lepe - Last Filed: 08/05/23 22:07>
[2023-08-05] MEDS: ASPIRIN EC 81 MG TAB PO SCH (08:11)
[2023-08-05] MEDS: FUROSEMIDE 20 MG/ 2ML VIAL IV SCH ×2 (08:12→16:58)
[2023-08-05 08:50] LABS: ALT/SGPT 104 U/L (13-56); AST/SGOT 50 U/L (15-37); Albumin 2.9 g/dL (3.4-5.0); Alkaline Phosphatase 182 U/L (45-117); Bilirubin Direct < 0.1 mg/dL (0-0.2); Bilirubin Indirect, Calculated ND mg/dL (0.2-0.8); Bilirubin Total 0.4 mg/dL (0.2-1.0); Protein, Total 5.8 g/dL (6.4-8.2)
[2023-08-05] MEDS ORDERED: FUROSEMIDE 20 MG/ 2ML VIAL IV SCH (09:00)
[2023-08-05] MEDS ORDERED: ASPIRIN EC 81 MG TAB PO SCH (09:00)
--- NOTE | 2023-08-05 11:54 | EKG ---
Test Date: 2023-08-05 Test Time: 09:06:37 Certified Medical Records Coder: KATHY MEASUREMENT RESULTS: Intervals: Rate: 73 NE: 176 QRSD: 144 QT: 472 QTc: 519 [place]: P: 56 NE: 176 QRS: -47 T: 95 INTERPRETIVE STATEMENTS: Normal sinus rhythm with sinus arrhythmia Left atrial enlargement Left axis deviation Left bundle branch block Abnormal ECG Compared to ECG 08/04/2023 14:44:10 No significant changes Electronically Signed On 08-05-23 11:53:24 CDT by Campbell Tang
--- NOTE | 2023-08-05 11:57 | EKG ---
Test Date: 2023-08-04 Test Time: 14:44:10 Automotive Quality Engineer: MARIBEL MEASUREMENT RESULTS: Intervals: Rate: 87 MI: 162 QRSD: 136 QT: 420 QTc: 505 [place]: P: 56 MI: 162 QRS: -59 T: 95 INTERPRETIVE STATEMENTS: Normal sinus rhythm Possible Left atrial enlargement Left axis deviation Left bundle branch block Abnormal ECG No previous ECG available for comparison Electronically Signed On 08-05-23 11:54:14 CDT by Campbell Tang
--- NOTE | 2023-08-05 13:52 | CON ---
Date of Consultation: 08/05/2023 Reason For Consultation: Shortness of breath. History Of Present Illness: 63-year-old female, history of CHF, CVA, presented to the emergency room with shortness of breath, lower extremity edema, orthopnea, and denies having chest pain. No nausea , vomiting, or diarrhea. No abdominal pain. All other systems were reviewed, they were negative. Physical Examination: Vital Signs: Reviewed. Head and Neck: Pupils are equal, reactive to light. Intact eye movements. No JVD. No cervical lym phadenopathy. Neck is supple. Thyroid is not enlarged. Lungs: Clear to auscultation bilaterally. No rhonchi, wheezing, or crackles. No accessory muscle u se. Heart: Regular rate and rhythm. No extra sounds. Abdomen: Soft, nontender. Bowel sounds positive. No organomegaly. No masses or hernia. No rigidi ty or rebound. Extremities: No clubbing or cyanosis. Intact pulses. Trace edema. Neurologic: Alert, awake, oriented x3. No acute focal deficits appreciated. Lymph Nodes: No cervical or axillary lymphadenopathy. Investigations: Troponin are 98, 107, and 104. NT-proBNP is 57,000. Assessment And Recommendations: 1.Acute on chronic congestive heart failure exacerbation, unknown ejection fraction. Please obtain an echo today to further evaluate and assess accordingly. 2.Elevated troponin. If this patient did not have a recent ischemia workup, we will plan for coronary angiogram during this hospital stay. /EDITA Voice ID: [id number] Report ID: [id number]
[2023-08-05] MEDS ORDERED: POTASSIUM CL SA 10 MEQ TAB PO ONE (15:59)
[2023-08-05] MEDS ORDERED: IPRATROPIUM BROM 0.5MG/2.5ML NEB PRN (16:00)
[2023-08-05] MEDS ORDERED: IPRATROPIUM BROM 0.5MG/2.5ML NEB SCH (16:00)
[2023-08-06] MEDS: HEPARIN 5000 UNIT/ML 1 ML VIAL SQ SCH ×3 (01:00→17:41)
[2023-08-06 02:08] LABS: Albumin 3.1 g/dL (3.4-5.0); Bilirubin Direct 0.1 mg/dL (0-0.2); Bilirubin Indirect, Calculated 0.3 mg/dL (0.2-0.8); Bilirubin Total 0.4 mg/dL (0.2-1.0); Protein, Total 6.1 g/dL (6.4-8.2)
[2023-08-06 02:24] LABS: Absolute Lymphocytes (CBC) 1.5 K/uL (0.7-4.9); Lymphocytes % 9.8 % (15.3-44.8); MCV 95.8 fL (80-100); MPV 11.6 fL (7.6-11.3); Platelets 217 thou/uL (152-406); RBC Red Blood Cell Count 4.18 M/uL (3.86-4.86)
[2023-08-06] MEDS ORDERED: NA CHLORIDE 0.9% 500 ML ONE (07:58)
[2023-08-06] MEDS ORDERED: HEPA 1000U/500MLS 2,000 UNIT/1,000 ML BAG IV ONE (08:05)
[2023-08-06] MEDS ORDERED: LIDOCAINE 1% 20 ML MDV ONE (08:05)
[2023-08-06] MEDS ORDERED: MIDAZOLAM HCL 2 MG/2 ML INJ ONE (08:09)
[2023-08-06] MEDS ORDERED: FENTANYL CITR 100 MCG/2 ML ONE (08:09)
[2023-08-06] MEDS ORDERED: HEPARIN 10,000 UNIT/10 ML VIAL IV ONE (08:10)
[2023-08-06] MEDS ORDERED: CLOPIDOGREL 75 MG TABLET ONE (08:10)
[2023-08-06] MEDS ORDERED: ASPIRIN 325 MG TAB ONE (08:10)
[2023-08-06] MEDS ORDERED: VERAPAMIL HCL 10 MG/4 ML VIAL IV ONE (08:10)
[2023-08-06] MEDS ORDERED: HEPARIN 5000 UNIT/ML 1 ML VIAL ONE (08:10)
[2023-08-06] MEDS ORDERED: TICAGRELOR 90 MG TABLET PO ONE (08:11)
[2023-08-06] MEDS ORDERED: ATROPINE SULF 1 MG/10 ML SYR IV ONE (08:11)
[2023-08-06] MEDS: ASPIRIN EC 81 MG TAB PO SCH (08:46)
[2023-08-06] MEDS: SERTRALINE HCL 100 MG TAB PO SCH (08:47)
--- NOTE | 2023-08-06 08:57 | ECHO ---
HEIGHT: ft in WEIGHT: lb oz DATE OF STUDY: 08/05/[address]: Kvng Abad NP 2-DIMENSIONAL: YES M.MODE: YES DOPPLER: YES COLOR FLOW: YES TDS: PORTABLE: YES DEFINITY: BUBBLE STUDY: DIAGNOSIS: CONGESTIVE HEART FAILURE CARDIAC HISTORY: CATHERIZATION: SURGERY: PROSTHETIC VALVE: PACEMAKER: MEASUREMENTS (cm) DIASTOLIC (NORMALS) SYSTOLIC (NORMALS) IVSd 1.2 (0.6-1.2) LA Diam 5.2 (1.9-4.0) LVEF 35% LVIDd 5.3 (3.5-5.7) LVIDs 4.4 (2.0-3.5) %FS 17% LVPWd 1.2 (0.6-1.2) Ao Diam 2.9 (2.0-3.7) 2 DIMENSIONAL ASSESSMENT: RIGHT ATRIUM: NORMAL LEFT ATRIUM: ENLARGED RIGHT VENTRICLE: NORMAL LEFT VENTRICLE: DEPRESSED EJECTION FRACTION TRICUSPID VALVE: MILD TRICUSPID REGURGITATION MITRAL VALVE: MILD MITRAL REGURGITATION PULMONIC VALVE: NORMAL AORTIC VALVE: MILD AORTIC INSUFFICIENCY PERICARDIAL EFFUSION: NONE AORTIC ROOT: NORMAL LEFT VENTRICULAR WALL MOTION: MODERATE GLOBAL HYPOKINESIS DOPPLER/COLOR FLOW: SEE BELOW COMMENTS: 1. MODERATELY DEPRESSED LEFT VENTRICULAR EJECTION FRACTION 30-35% 2. MODERATE GLOBAL HYPOKINESIS 3. LEFT ATRIAL ENLARGEMENT 4. MODERATE MITRAL REGURGITATION 5. MILD TRICUSPID REGURGITATION, AORTIC INSUFFICIENCY TECHNOLOGIST: ELIZABETH MUELLER
--- NOTE | 2023-08-06 08:58 | P.PN ---
Subjective Date of Service: 08/06/23 Primary Care Provider: Hardik Hwang Chief Complaint: Increasing Shortness of Breath Subjective: Improving, Doing well Date of admission: 08/04/23 Reason for admission: Increasing Shortness of Breath History of Present Illness: Ms. Khan 63-year-old female with a history of CHF, CVA, hypertensive disorder, traumatic brain injury, presented to the emergency room with a complaint of worsening shortness of breath. Patient reports her shortness of breath got worse today. Patient denies chest pain, fever chills or weight loss. Patient admit swelling in the feet for few weeks. Patient reports that she discontinued water pills since January 2023. Patient denies abdominal pain, nausea, vomiting. ED course vital signs blood pressure 139/104, pulse 92, respiration 19, temperature 97.6, pulse ox 96% on room air. EKG is in normal sinus rhythm. QRS axis is normal, [place] interval is normal at 162, QRS interval is prolonged at 136 MS EDC. QT interval is normal. Initial laboratory reports significant for el evated D-dimer 1965, elevated BNP 57,000 283, low sodium 134, elevated renal profile BUN 25, creatinine 1.44, GFR 41, elevated hepatic profile AST 90, ALT 125, elevated troponin I 98.8. Chest x-ray shows CHF and small pleural effusion on the left side, small to moderate pleural effusion on the right side. Admitting the patient with a diagnosis of acute on chronic combined systolic and diastolic heart failure, elevated troponin level, elevated liver enzymes. 08/05/2023 Patient is alert and oriented x3 Feeling much better Denies any shortness of breath at this time Patient for Forensic Analyst today Denies pain or any discomfort Physical Examination - Vital Signs Temperature: 97.1 F Blood Pressure: 141/94 Pulse: 82 Respirations: 17 Pulse Ox (%): 94 Assessment And Plan - Plan Physical Examination - Physical Exam General: Alert, Oriented x3 HEENT: Atraumatic, Normocephalic, PERRLA Neck: 2+ carotid pulse no bruit Respiratory: Clear to auscultation bilaterally, Diminished (Basis) Cardiovascular: No edema, Normal pulses, Regular rate/rhythm, Normal S1 S2 Capillary refill: <2 Seconds Gastrointestinal: Normal bowel sounds, Hypoactive, Soft and benign, W/out succussion splash, W/out hepatosplenomegaly, W/out hepatomegaly, W/out splenomegaly, No ascites, No tenderness, No masses Musculoskeletal: No clubbing, No swelling, No contractures, No erythema, No tenderness, No warmth Neurological: Normal gait, Normal speech, Normal strength at 5/5 x4 extr, Normal tone Assessment Acute on Chronic Combined systolic and diastolic heart failure Acute Pleural effusion NSTEMI, Acute Elevated troponin level Transiminitis Acute Renal impairment Hypertension Plan Acute on ChronicCombined systolic and diastolic heart failure Pleural effusion Elevated troponin level NSTEMI * Acute,on chronic CHF, patient reports that she stopped diuretics since January 2023. Improving. * Increased shortness of breath over the last 2 weeks * elevated troponin I 104.3, elevated BNP 03142 * Consult cardiology Dr. Tang * Trend troponin, EKG, echo cardiogram,NPO after MN * Repeat BNP and a D-dimer in Am * Monitor heart rate and blood pressure closely * Aspirin, nitroglycerin, morphine as needed * Lasix 40mg IV BID * Daily weight and strict I&O * Reporting worsening cough, with Leuckocytosis of 15,CXR ordered to r/o pneumonia * Scheduled for Forensic Analyst today * Cath done, EF 30%, started on Entresto and Metoprolol as per carpet cleaning technician Dr. Tang's recommendation * Discussed and explained to the patient Transiminitis * Improving.Repeat liver enzymes in the morning we will continue to monitor * Non Alcoholic * Liver US ordered Renal impairment * Acute kidney injury likely related to pre-renal (CHF), unknown baseline. BUN 29 CREA 1.30, GFR 47 * Will continue to monitor * Avoid NSAIDs, over the Counter medications without checking with the medical practitioner Hypertension * Chronic, controlled * Resume home medications CODE STATUS Full code DVT prophylaxis Heparin Diet Cardiac Discharge Plan: Home Plan to discharge in: 24 Hours - Code Status/Comfort Care Code Status Assessed: Yes (full code) Code Status: Full Code Physician Review: Patient Assessed, Agree with Above Assessment and Plan Critical Care: No Time Spent Managing PTS Care (In Minutes): 35 (minutes)
[2023-08-06] MEDS: FUROSEMIDE 20 MG/ 2ML VIAL IV SCH ×2 (09:00→17:00)
--- NOTE | 2023-08-06 09:39 | PN ---
Date of Progress Note: 08/06/2023 Subjective: Seen by bedside. Still with shortness of breath. No chest pain. Review of Systems: Positive shortness of breath with activities. No chest pain. No nausea, vomiting, diarrhea. No abd ominal pain. All other systems reviewed are negative. Physical Examination: Vital Signs: Reviewed. Head and Neck: Pupils are equal, reactive to light. Intact eye movements. No JVD. No cervical lym phadenopathy. Neck is supple. Thyroid is not enlarged. Lungs: Clear to auscultation bilaterally. No rhonchi, wheezing, or crackles. No accessory muscle u se. Heart: Regular rate and rhythm. No extra sounds. Abdomen: Soft, nontender. Bowel sounds positive. No organomegaly. No masses or hernia. No rigidi ty or rebound. Extremities: No edema, clubbing, or cyanosis. Intact pulses. Skin: No rash. Neurologic: Alert, awake, oriented x3. No acute distress. Investigations: Labs reviewed. Assessment/recommendations: 1.Elevated troponin suggestive of non-ST elevation myocardial infarction. Plan for coronary angiogr am today. 2.Systolic heart failure, ejection fraction in the mid 30s. Start on Entresto and beta oliver, titrate up as per the guidelines directed medical therapy for heart failjavier luke SR/EDITA Voice ID: [id number] Report ID: [id number]
[2023-08-06] MEDS: TOPIRAMATE 100 MG TAB PO SCH ×2 (10:55→21:00)
[2023-08-06 11:15] LABS: Potassium 3.7 mEq/L (3.5-5.1)
--- NOTE | 2023-08-06 14:48 | OP ---
Surgeon: SONNY ABRAMS Procedures Performed: 1.Selective coronary angiogram. 2.Left heart catheterization. Indication: 1.Yvd-FU-xxxwaldpi myocardial infarction. 2.Systolic heart failure. Access: Right radial artery 6-[place] closed with TR band. Complications: None. Bleeding: Less than 20 mL. Description Of Procedure: After risks, benefits, and alternatives were explained, patient agreed to procedure and signed informal consent. Patient was brought into cardiac catheterization laboratory, prepped and draped in the usual sterile fashion. Then, I accessed right radial artery using Tap.Mei c micropuncture kit, placed 6-[place] Slender sheath, took 5-[place] 4 catheter into aortic root, engaged the left main and the right coronary artery, took standard views and the catheter was pushed over the wire into the LV, measured LVEDP. Pullback did not record any gradient and then I removed the catheter and the sheath, placed TR band with good hemostasis. Findings: 1.Left main; it is normal. 2.LAD; large and normal, normal diagonal branches. 3.Left circumflex; normal, nondominant. 4.RCA; large dominant and normal. 5.Elevated LVEDP at 24 mmHg. Conclusion: 1.Normal coronary arteries. 2.Elevated LVEDP due to heart failure. Recommendation: Guideline directed medical therapy for heart failure. SR/MODL Voice ID: [id number] Report ID: [id number]
--- NOTE | 2023-08-06 15:53 | RAD REPORT ---
EXAM DESCRIPTION: RAD - Chest Pa And Lat (2 Views) - 08/06/2023 3:30 pm CLINICAL HISTORY: cough Chest pain. COMPARISON: Chest Single View dated 08/04/2023; Chest Pa And Lat (2 Views) dated 08/26/2022 FINDINGS: Mild interstitial pulmonary edema seen. Small right pleural effusion is seen. The heart is moderately enlarged. No displaced fractures. IMPRESSION: Mild CHF. Small right pleural effusion.
[2023-08-06] MEDS: METOPROLOL TAR 25 MG TAB PO SCH (17:41)
[2023-08-06] MEDS ORDERED: ATORVASTATIN 20 MG TAB PO SCH (21:00)
[2023-08-06] MEDS: SACUBITRIL/VALSARTAN 24/26 MG TAB PO SCH (21:53)
[2023-08-07] MEDS: METOPROLOL TAR 25 MG TAB PO SCH (06:01)
[2023-08-07] MEDS: HEPARIN 5000 UNIT/ML 1 ML VIAL SQ SCH (06:06)
[2023-08-07 06:53] LABS: Absolute Lymphocytes (CBC) 1.4 K/uL (0.7-4.9); Hematocrit 45.6 % (36.0-45.0); Lymphocytes % 13.8 % (15.3-44.8); MCV 95.5 fL (80-100); MPV 11.5 fL (7.6-11.3); Platelets 228 thou/uL (152-406); RBC Red Blood Cell Count 4.77 M/uL (3.86-4.86)
[2023-08-07 07:11] LABS: Potassium 3.5 mEq/L (3.5-5.1)
[2023-08-07 07:12] LABS: Bilirubin Direct 0.2 mg/dL (0-0.2); Bilirubin Indirect, Calculated 0.3 mg/dL (0.2-0.8); Bilirubin Total 0.5 mg/dL (0.2-1.0); Protein, Total 6.6 g/dL (6.4-8.2)
--- NOTE | 2023-08-07 08:16 | RAD REPORT ---
EXAM DESCRIPTION: US - Liver Only - 08/07/2023 12:06 am CLINICAL HISTORY: elevated LFTs remoted h/o alcohol use COMPARISON: Chest For Pe Angio dated 08/04/2023 FINDINGS: Mild fatty liver infiltration is seen.The liver size is mildly prominent measuring up to 1 5 cm.No focal liver lesion or intrahepatic biliary dilatation.The gallbladder demonstrates no gallsto cuco or wall thickening. No biliary dilatation. The spleen is normal measuring 10 cm. Trace right pleural fluid. IMPRESSION: Mild fatty liver is present.
[2023-08-07] MEDS ORDERED: FUROSEMIDE 40 MG TABLET PO SCH (09:00)
[2023-08-07] MEDS: TOPIRAMATE 100 MG TAB PO SCH (09:25)
[2023-08-07] MEDS: SACUBITRIL/VALSARTAN 24/26 MG TAB PO SCH (09:25)
[2023-08-07] MEDS: ASPIRIN EC 81 MG TAB PO SCH (09:26)
[2023-08-07] MEDS: SERTRALINE HCL 100 MG TAB PO SCH (09:26)
--- NOTE | 2023-08-07 09:31 | P.DS ---
Admission Date: 08/04/23 Discharge Date: 08/07/23 Disposition: ROUTINE DISCHARGE Discharge Condition: GOOD Reason for Admission: Increasing Shortness of Breath Brief History of Present Illness: History of Present Illness: Ms. Khan 63-year-old female with a history of CHF, CVA, hypertensive disorder, traumatic brain injury, presented to the emergency room with a complaint of worsening shortness of breath. Patient reports her shortness of breath got worse today. Patient denies chest pain, fever chills or weight loss. Patient admit swelling in the feet for few weeks. Patient reports that she discontinued water pills since January 2023. Patient denies abdominal pain, nausea, vomiting. ED course vital signs blood pressure 139/104, pulse 92, respiration 19, temperature 97.6, pulse ox 96% on room air. EKG is in normal sinus rhythm. QRS axis is normal, KS interval is normal at 162, QRS interval is prolonged at 136 MS EDC. QT interval is normal. Initial laboratory reports significant for elevated D-dimer 1964, elevated BNP 57,000 283, low sodium 134, elevated renal profile BUN 25, creatinine 1.44, GFR 41, elevated hepatic profile AST 90, ALT 125, elevated troponin I 98.8. Chest x-ray shows CHF and small pleural effusion on the left side, small to moderate pleural effusion on the right side. Admitting the patient with a diagnosis of acute on chronic combined systolic and diastolic heart failure, elevated troponin level, elevated liver enzymes. Hospital Course: Hospital course Ms. Erin Hill-year-old female with a history of CHF, CVA, hypertensive disorder, traumatic brain injury, presented to the emergency room with a complaint of worsening shortness of breath. Patient reports her shortness of breath got worse today. Patient denies chest pain, fever chills or weight loss. Patient admit swelling in the feet for few weeks. Patient reports that she discontinued water pills since January 2023. Patient denies abdominal pain, nausea, vomiting. ED course vital signs blood pressure 139/104, pulse 92, respiration 19, temperature 97.6, pulse ox 96% on room air. EKG is in normal sinus rhythm. QRS axis is normal, KS interval is normal at 162, QRS interval is prolonged at 136 MS EDC. QT interval is normal. Initial laboratory reports significant for elevated D-dimer 1964, elevated BNP 57,000 283, low sodium 134, elevated renal profile BUN 25, creatinine 1.44, GFR 41, elevated hepatic profile AST 90, ALT 125, elevated troponin I 98.8. Chest x-ray shows CHF and small pleural effusion on the left side, small to moderate pleural effusion on the right side. Admitting the patient with a diagnosis of acute on chronic combined systolic and diastolic heart failure, elevated troponin level, elevated liver enzymes. Vital Signs/Physical Exam: Temp Pulse Resp BP Pulse Ox 97.1 F 93 H 17 113/73 94 08/07/23 08:00 08/07/23 09:26 08/07/23 08:00 08/07/23 09:26 08/07/23 08:00 Laboratory Data at Discharge: WBC 10.30 thou/uL (4.3-10.9) 08/07/23 05:36 Hgb 15.9 g/dL (12.0-15.0) H D 08/07/23 05:36 Hct 45.6 % (36.0-45.0) H 08/07/23 05:36 Plt Count 228 thou/uL (152-406) 08/07/23 05:36 PT 12.6 SECONDS (9.5-12.5) H 08/04/23 14:26 INR 1.15 08/04/23 14:26 Sodium 137 mEq/L (136-145) 08/07/23 05:36 Potassium 3.5 mEq/L (3.5-5.1) 08/07/23 05:36 BUN 28 mg/dL (7-18) H 08/07/23 05:36 Creatinine 1.17 mg/dL (0.55-1.02) H 08/07/23 05:36 Glucose 108 mg/dL (74-106) H 08/07/23 05:36 Magnesium 2.0 mg/dL (1.6-2.4) 08/06/23 01:39 Magnesium Cancelled 08/06/23 01:39 Total Bilirubin 0.5 mg/dL (0.2-1.0) 08/07/23 05:36 AST 22 U/L (15-37) 08/07/23 05:36 ALT 68 U/L (13-56) H 08/07/23 05:36 Alkaline Phosphatase 186 U/L (45-117) H 08/07/23 05:36 Triglycerides 141 mg/dL (<150) 08/04/23 21:32 Cholesterol 116 mg/dL (<200) 08/04/23 21:32 HDL Cholesterol 40 mg/dL (40-60) 08/04/23 21:32 Cholesterol/HDL Ratio 2.90 08/04/23 21:32 Home Medications: Atorvastatin Calcium [Lipitor] 20 mg PO BEDTIME 08/26/22 Butalb/Acetaminophen/Caffeine [Ueaqoi-Knqotzen-Hwxl 50-325-40] 1 each PO BID 08/26/22 Calcium Carb/Mag Ox/Zinc Sulf [Ftq-Ybl-Dvcn 334-134-5 mg Tab] 1 tab PO TID 08/26/22 Cholecalciferol (Vitamin D3) [D3-50] 1,250 mcg PO DAILY 08/26/22 Diazepam [Valium] 5 mg PO BEDTIME 08/26/22 Diclofenac Sodium [Voltaren] 75 mg PO DAILY 08/26/22 Erenumab-Aooe [Aimovig Autoinjector] 1 dose SQ SEECOM 08/26/22 Folic Acid/Vit B Complex and C [Super B Complex-Vit C Caplet] 1 tab PO DAILY 08/26/22 Hydralazine HCl [Apresoline] 50 mg PO BID 08/26/22 Hydrocodone Bit/Acetaminophen [Hydrocodon-Acetaminophn 10-325] 1 tab PO DAILY 08/26/22 Iron 18 mg PO DAILY 08/26/22 Omeprazole [Prilosec] 40 mg PO DAILY 08/26/22 Potassium Chloride 10 meq PO DAILY 08/26/22 Sertraline HCl 100 mg PO DAILY 08/26/22 Topiramate [Topamax] 100 mg PO BID 08/26/22 Valsartan [Diovan] 160 mg PO DAILY 08/26/22 Atorvastatin Calcium [Lipitor] 20 mg PO DAILY #90 08/07/23 Furosemide [Lasix*] 40 mg PO DAILY 90 Days #90 tab 08/07/23 Furosemide [Lasix] 40 mg PO DAILY 90 Days #90 tab 08/07/23 Metoprolol Tartrate [Lopressor*] 12.5 mg PO BID #60 tab 08/07/23 Metoprolol Tartrate [Lopressor*] 12.5 mg PO BID 6AM 6PM 90 Days #180 tab 08/07/23 Sacubitril/Valsartan [Entresto 24 mg-26 mg Tablet] 1 tab PO BID 90 Days #180 tab 08/07/23 Sertraline [Zoloft*] 100 mg PO DAILY #90 tab 08/07/23 Topiramate [Topamax] 100 mg PO BID #180 tab 08/07/23 New Medications: Sacubitril/Valsartan [Entresto 24 mg-26 mg Tablet] 1 tab PO BID 90 Days #180 tab Furosemide [Lasix] 40 mg PO DAILY 90 Days #90 tab Furosemide [Lasix*] 40 mg PO DAILY 90 Days #90 tab Atorvastatin Calcium [Lipitor] 20 mg PO DAILY #90 Metoprolol Tartrate [Lopressor*] 12.5 mg PO BID #60 tab Metoprolol Tartrate [Lopressor*] 12.5 mg PO BID 6AM 6PM 90 Days #180 tab Topiramate [Topamax] 100 mg PO BID #180 tab Sertraline [Zoloft*] 100 mg PO DAILY #90 tab Followup: NONE,NONE [Primary Care Provider] -
--- NOTE | 2023-08-07 11:57 | PN ---
Date of Progress Note: 08/07/2023 Subjective: Seen by bedside. Doing well. No chest pain. Review of Systems: No chest pain, shortness of breath, orthopnea, or cough. No nausea, vomiting, or diarrhea. All othe r systems were reviewed, they were negative. Objective: Vital Signs: Reviewed. Head and Neck: Pupils are equal, reactive to light. Intact eye movements. No JVD. No cervical lym phadenopathy. Neck is supple. Thyroid is not enlarged. Lungs: Clear to auscultation bilaterally. No rhonchi, wheezing, or crackles. No accessory muscle u se. Heart: Regular rate and rhythm. No extra sounds. Abdomen: Soft, nontender. Bowel sounds positive. No organomegaly. No masses or hernia. No rigidi ty or rebound. Extremities: No edema, clubbing, or cyanosis. Intact pulses. Skin: No rash or nodule. Neurologic: Alert, awake, oriented x3. No acute focal deficits appreciated. Lymph Nodes: No cervical or axillary lymphadenopathy. Investigations: Labs reviewed. Assessment And Recommendations: 1.Systolic heart failure, new onset and nonischemic. No significant disease on the coronary angiogr am. Continue Entresto and beta-oliver. Patient can be released to follow up with me within 1 week to titrate Entresto and plan after maximizing the medical therapy to repeat echo after that. 2.Elevated troponin due to demand ischemia. A coronary angiogram did not reveal any significant dis ease. 3.Dyslipidemia. Continue statin. This patient can be released today to follow up with me sometime next week to titrate the Entresto. /ASHLEYL Voice ID: [id number] Report ID: [id number]
[2023-08-07 14:18] VITALS: O2SAT 93
[2023-08-07 14:28] VITALS: BP 119/82; BMI 25.0
[2023-08-07 14:29] VITALS: TEMP 97.1
== END 2023-08-07 13:11 | disposition home or self-care (01) | DRG 291 ==
LOC: ER 14:06 → ERHOLD 17:11 → 4TH 22:27
PROVIDERS: ADMIT Internal Medicine; ATTEND Hospitalist
DX: I11.0 Hypertensive heart disease with heart failure (principal); I50.43 Acute on chronic combined systolic (congestive) and diastolic (congestive) heart failure; N17.9 Acute kidney failure, unspecified; I24.89 Other forms of acute ischemic heart disease; N28.9 Disorder of kidney and ureter, unspecified; R79.89 Other specified abnormal findings of blood chemistry; R74.01 Elevation of levels of liver transaminase levels; Z88.2 Allergy status to sulfonamides; Z88.8 Allergy status to other drugs, medicaments and biological substances; Z88.5 Allergy status to narcotic agent; Z86.73 Personal history of transient ischemic attack (TIA), and cerebral infarction without residual deficits; Z90.49 Acquired absence of other specified parts of digestive tract; Z98.51 Tubal ligation status; Z91.013 Allergy to seafood
CPT/HCPCS: 36415; 71045; 71046; 71275; 76705; 76937; 80048; 80061; 80076; 83735; 83880; 84484; 85025; 85379; 85610; 93005; 93306; 93458; 94640; 96374; 99285; C1893; J0461; J1644; J1940; J2001; J2250; J3010; J7040; J7613; J7644; Q9966; Q9967

== ENCOUNTER 2024-08-24 11:52 | Emergency (ER) | payer BC ==
[2024-08-24 13:42] LABS: SARS-CoV-2 Antigen CONTROL BLUE LINE VIS/BG OK; SARS-CoV-2 Antigen Rapid Res Negative (Negative)
--- NOTE | 2024-08-24 14:09 | ER ---
Nurse's Notes [facility] Name: Radha Khan Age: 64 yrs Sex: Female : 1960 Arrival Date: 08/24/2024 Time: 11:52 Bed 12 Private MD: Diagnosis: Myalgia;Headache Presentation: 08/24 12:00 Chief complaint: Patient states: Cough, congestion, ROA, feels hot, sore throat started ll1 Friday. Coronavirus screen: Client denies travel out of the [place] in the last 14 days. congestion, cough unrelated to allergies, fatigue, fever, headache, Client presents with at least one sign or symptom that may indicate coronavirus-19. Standard/surgical mask placed on the client. Ebola Screen: Patient denies travel to an Ebola-affected area in the 21 days before illness onset. Initial Sepsis Screen: Does the patient meet any 2 criteria? No. Patient's initial sepsis screen is negative. Does the patient have a suspected source of infection? No. Patient's initial sepsis screen is negative. Risk Assessment: Do you want to hurt yourself or someone else? Patient reports no desire to harm self or others. Onset of symptoms was August 21, 2024. 12:00 Method Of Arrival: Ambulatory ll1 12:00 Acuity: [place] 3 ll1 Triage Assessment: 12:03 General: Appears uncomfortable, Behavior is calm, cooperative, appropriate for age. ll1 General: Reports fever for fatigue for. Pain: Complains of pain in head Quality of pain is described as aching. EENT: Reports nasal congestion pain when swallowing. Neuro: Reports headache. Respiratory: Reports cough that is. 14:31 Headache History: Denies prior headaches. Pain: Also complains of no other associated 1 symptoms. 14:32 Pain: Pain began Friday. ll1 14:32 Pain: Pain currently is 5 out of 10 on a pain scale. ll1 Historical: - Allergies: 11:57 Lisinopril; ll1 11:57 SHELLFISH; ll1 11:57 Sulfa (Sulfonamide Antibiotics); ll1 - PMHx: 11:57 CVA; CHF; TBI; Hypertensive disorder; ll1 - PSHx: 11:57 abdominoplasty; Appendectomy; bladder suspension; carpal tunnel; Defibrillator ll1 (September 2023); Tonsillectomy; tubal ligation; - Immunization history:: Adult Immunizations up to date. - Infectious Disease History:: Denies. - Social history:: Smoking status: Patient denies any tobacco usage or history of. Screenin:31 [facility] ED Fall Risk Assessment (Adult) History of falling in the last 3 months, ll1 including since admission No falls in past 3 months (0 pts) Confusion or Disorientation No (0 pts) Intoxicated or Sedated No (0 pts) Impaired Gait No (0 pts) Mobility Assist Device Used No (0 pt) Altered Elimination No (0 pt) Score/Fall Risk Level 0 - 2 = Low Risk Maintained a safe environment, Hourly rounding (assess needs \T\ fall precautionary measures) done. Abuse screen: Denies threats or abuse. Nutritional screening: No deficits noted. Tuberculosis screening: No symptoms or risk factors identified. Assessment: 13:05 Reassessment: No changes from previously documented assessment. Patient and/or family rs5 updated on plan of care and expected duration. Pain level reassessed. Patient is alert, oriented x 3, equal unlabored respirations, skin warm/dry/pink. 14:30 Reassessment: No changes from previously documented assessment. Patient and/or family ll1 updated on plan of care and expected duration. Pain level reassessed. Patient is alert, oriented x 3, equal unlabored respirations, skin warm/dry/pink. Vital Signs: 12:00 BP 92 / 77; Pulse 88; Resp 18; Temp 97.6; Pulse Ox 98% on R/A; Weight 73.48 kg; Height ll1 5 ft. 4 in. ; Pain 7/10; 13:05 BP 108 / 91; Pulse 75; Resp 17; Pulse Ox 98% on R/A; rs5 14:30 BP 107 / 71; Pulse 71; Resp 17; Pulse Ox 97% on R/A; ll1 12:00 Body Mass Index 27.81 (73.48 kg, 162.56 cm) ll1 12:00 Pain Scale: Adult ll1 ED Course: 11:57 Patient arrived in ED. mr 11:57 Arm band placed on. ll1 12:02 Triage completed. ll1 12:06 Walt Jett DO is Attending Physician. ms3 12:59 Patient placed in an exam room, on a stretcher. rs5 13:00 Flu Sent. rs5 13:00 SARS RAPID Sent. rs5 14:08 Flaquito Multani DO is Referral Physician. ms3 14:31 Patient has correct armband on for positive identification. Provided Education on: ll1 return to ED for worsening symptoms. 14:31 No provider procedures requiring assistance completed. Patient did not have IV access ll1 during this emergency room visit. Administered Medications: No medications were administered Medication: 14:32 VIS not applicable for this client. ll1 Outcome: 14:08 Discharge ordered by . ms3 14:31 Discharged to home ambulatory, ll1 14:31 Condition: stable 14:31 Discharge instructions given to patient, Instructed on discharge instructions, follow up and referral plans. Demonstrated understanding of instructions, follow-up care, 14:32 Patient left the ED. ll1 Signatures: Radha Trinidad, Reg Reg Dorita Bernardo, RN RN ll1 Walt Jett DO DO ms3 Lam Mckinney, RN RN rs5 Corrections: (The following items were deleted from the chart) 12:04 12:00 Pulse 88bpm; Resp 18bpm; Pulse Ox 98% RA; Temp 97.6F; 73.48 kg; Height 5 ft. 4 ll1 in.; BMI: 27.8; Pain 7/10, Adult; ll1
--- NOTE | 2024-08-24 14:09 | EDPHYS ---
Physician Documentation [facility] Name: Radha Khan Age: 64 yrs Sex: Female : 1960 Arrival Date: 08/24/2024 Time: 11:52 Bed 12 Private MD: ED Physician Walt Jett HPI: 08/24 14:30 This 64 yrs old Female presents to ER via Ambulatory with complaints of Headache, ms3 Cough, Fever, Congestion. 14:30 64 yo female presents to the Emergency Department for headache, fatigue, and nausea for ms3 the past three days. She suspects a possible sick contact at work. She has not taken any additional medication like Tylenol or ibuprofen today. The patient mentions having had a negative COVID-19 self-test. She denies significant coughing but mentions occasional sneezing, coughing, and sniffling, which she attributes to local environmental factors. She has received a pneumonia shot but cannot take the flu shot due to an egg allergy. . Historical: - Allergies: 11:57 Lisinopril; ll1 11:57 SHELLFISH; ll1 11:57 Sulfa (Sulfonamide Antibiotics); ll1 - PMHx: 11:57 CVA; CHF; TBI; Hypertensive disorder; ll1 - PSHx: 11:57 abdominoplasty; Appendectomy; bladder suspension; carpal tunnel; Defibrillator ll1 (September 2023); Tonsillectomy; tubal ligation; - Immunization history:: Adult Immunizations up to date. - Infectious Disease History:: Denies. - Social history:: Smoking status: Patient denies any tobacco usage or history of. ROS: 14:30 Neck: Negative for injury, pain, and swelling, Cardiovascular: Negative for chest pain, ms3 and palpitations. Abdomen/GI: Negative for abdominal pain, nausea, vomiting, diarrhea, and constipation, MS/Extremity: Negative for injury and deformity, Skin: Negative for injury, rash, and discoloration, 14:30 Constitutional: Positive for body aches, fever, 14:30 Respiratory: Positive for cough, Exam: 14:30 Constitutional: This is a well developed, well nourished patient who is awake, alert, ms3 and in no acute distress. Chest/axilla: Normal chest wall appearance and motion. Nontender with no deformity. Cardiovascular: Regular rate and rhythm with a normal S1 and S2. No gallops, murmurs, or rubs. Normal PMI, no JVD. No pulse deficits. Respiratory: Lungs have equal breath sounds bilaterally, clear to auscultation and percussion. No rales, rhonchi or wheezes noted. No increased work of breathing, no retractions or nasal flaring. Abdomen/GI: Soft, non-tender, with normal bowel sounds. No distension or tympany. No guarding or rebound. No evidence of tenderness throughout. Skin: Warm, dry with normal turgor. Normal color with no rashes, no lesions, and no evidence of cellulitis. Vital Signs: 12:00 BP 92 / 77; Pulse 88; Resp 18; Temp 97.6; Pulse Ox 98% on R/A; Weight 73.48 kg; Height ll1 5 ft. 4 in. ; Pain 7/10; 13:05 BP 108 / 91; Pulse 75; Resp 17; Pulse Ox 98% on R/A; rs5 14:30 BP 107 / 71; Pulse 71; Resp 17; Pulse Ox 97% on R/A; ll1 12:00 Body Mass Index 27.81 (73.48 kg, 162.56 cm) ll1 12:00 Pain Scale: Adult ll1 MDM: 12:34 Medical Screening Exam initiated ms3 14:30 Differential diagnosis: Flu vs COVID vs Viral Illness. Data reviewed: vital signs, ms3 nurses notes, lab test result(s), and as a result, I will discharge patient. Care significantly affected by the following chronic conditions: Hypertension. Counseling: I had a detailed discussion with the patient and/or guardian regarding the historical points, exam findings, and any diagnostic results supporting the discharge/admit diagnosis, lab results, the need for outpatient follow up, to return to the emergency department if symptoms worsen or persist or if there are any questions or concerns that arise at home. Special discussion: I discussed with the patient/guardian in detail that at this point there is no indication for admission to the hospital. It is understood, however, that if the symptoms persist or worsen the patient needs to return immediately for re-evaluation. ED course: Discussed negative flu and COVID results with patient. Patient to follow-up with her primary care physician in 2 to 3 days. Discussed [id number] medication for symptoms Tylenol and ibuprofen. Discussed hydration with patient. On reevaluation patient is alert and oriented x 4, no apparent distress, nontoxic-appearing, speaking full sentences, ambulatory in the emergency department. Return precautions discussed include worsening symptoms, or any other concerns.. 08/24 12:35 Order name: SARS RAPID; Complete Time: 13:51 ms3 08/24 12:35 Order name: Flu; Complete Time: 13:51 ms3 Administered Medications: No medications were administered Disposition Summary: 08/24/24 14:08 Discharge Ordered Notes: Location: Home ms3 Condition: Stable ms3 Diagnosis - Myalgia ms3 - Headache ms3 Followup: ms3 - With: Flaquito Multani DO - When: 2 - 3 days - Reason: Recheck today's complaints Discharge Instructions: - Discharge Summary Sheet ms3 - General Headache Without Cause ms3 - Viral Illness, Adult ms3 Forms: - Work release form ss - Medication Reconciliation Form ms3 - Antibiotic Education ms3 - Prescription Opioid Use ms3 - Patient Portal Instructions ms3 - Leadership Thank You Letter ms3 Signatures: Dispatcher [employer] EDDorita Oneil, RN RN ll1 Walt Jett DO DO ms3 Corrections: (The following items were deleted from the chart) 12:35 12:35 SARS-COV-2 Antigen Rapid+I.LAB.BRZ ordered. EDMS EDMS 12:35 12:35 Influenza Screen (A \T\ B)+BA.LAB.BRZ ordered. EDMS EDMS
[2024-08-24 14:37] VITALS: TEMP 97.6
[2024-08-24 14:40] VITALS: BP 107/71; O2SAT 97
== END 2024-08-24 14:32 | disposition home or self-care (01) ==
LOC: ER 11:52
DX: R51.9 Headache, unspecified (principal); M79.10 Myalgia, unspecified site; R50.9 Fever, unspecified; R05.9 Cough, unspecified; Z11.52 Encounter for screening for COVID-19; I10 Essential (primary) hypertension; Z95.810 Presence of automatic (implantable) cardiac defibrillator
CPT/HCPCS: 36415; 87804; 87811